=== PATIENT | male | born 1945 | race Caucasian/White ===

== ENCOUNTER 2016-12-01 18:51 | Inpatient (IN) | payer OTHER ==
[~2016-12-01] VITALS: Ht 180.3 cm; Wt 104.9 kg
[~2016-12-01 18:51] MED LIST: ASPI81TA28 PO; ATOR10TA88 PO; AZEL0.15; BENA20TA14 PO; FLUT0.0529 NAE; METO25TA56 PO; OMEP10CA2 PO; SYMIN160 INH; TRAM-10 PO; VRPSR240 PO
--- NOTE | 2016-12-01 19:03 | EMERGENCY ROOM VISIT NOTE ---
History Report prepared by Phuc: Abdulaziz Ag Under the Supervision of: Dr. Gabriel Yoo M.D. First contact with patient: 18:53 Chief Complaint: ABDOMINAL PAIN Stated Complaint: AB PAIN History of Present Illness The patient is a 71 year old male who presents to the Emergency Room with complaints of improving abdominal pain that started earlier today. The pain was initially excruciating and started suddenly, but is now rated 2/10 in severity. The pain radiates to the right groin area. The patient was also reportedly short of breath and diaphoretic, which are resolved. The patient denies chest pain at any point. Per EMS, his blood pressure dropped into the 90s systolically , which is unusual has a has a history of hypertension.The patient recently had pneumonia and was treated with antibiotics and steroids. His abdomen is also purple-appearing which is unusual. He had open AAA repair at [place] in 2002 and does not have a stent. He is also s/p CABG x 3. He initially denies a history of kidney stones but later stated that he has had them. Source of History: patient, EMS Onset: earlier today Position: abdomen Symptom Intensity: excruciating Timing: other (improving) Associated Symptoms: + SOB, + diaphoresis, No chest pain Review of Systems See HPI for pertinent positives & negatives. A total of 10 systems reviewed and were otherwise negative. Past Medical & Surgical Medical Problems: (1) Abdominal pain (2) NURIA (acute kidney injury) (3) Bronchitis (4) CAD (coronary artery disease) (5) Chest pain of uncertain etiology (6) COPD (chronic obstructive pulmonary disease) (7) Diverticulosis Colon (W/O Ment Of Hemorrhage) (8) Easy bruisability (9) Elevated troponin I level (10) GERD (gastroesophageal reflux disease) (11) Hypertension Nos (12) Hypothyroid (13) Obesity (14) Tobacco abuse Surgical Problems: (1) Hx of CABG (2) S/P AAA repair Family History No pertinent family history Social History Smoking Status: Current Every Day Smoker Drug Use: none Marital Status: Housing Status: lives with family Occupation Status: employed Current/Historical Medications Scheduled Aspirin (Aspirin Ec), 81 MG PO DAILY Atorvastatin (Atorvastatin Calcium), 10 MG PO DAILY Azelastine Hcl (Astelin Nasal Stephens), 2 SPRAYS MICHELLE DAILY Benazepril Hcl (Benazepril Hcl), 5 MG PO DAILY Diclofenac Sod (Diclofenac Sodium Dr), 75 MG PO BID Ergocalciferol (Vitamin D), 50,000 UNITS PO WK Fluticasone Furoate-Vilanterol (Breo Ellipta 200-25 Mcg/INH), 1 PUFF INH DAILY Levalbuterol (Levalbuterol HCl), 1 DOSE INH PRN UD Levothyroxine Sodium (Levothyroxine Sodium), 175 MCG PO DAILY Metoprolol Tartrate (Lopressor) (Lopressor), 25 MG PO BID Montelukast Sod (Montelukast Sodium), 10 MG PO DAILY Omeprazole (Prilosec), 10 MG PO DAILY Verapamil Hcl (Verapamil Hcl Er), 240 MG PO QPM Scheduled PRN Tramadol Hcl (Ultram), 50 MG PO BID PRN for Pain [Proair], 2 PUFF INH Q4 PRN for SOB/Wheezing Allergies Coded Allergies: Amoxicillin (Verified Adverse Reaction, Unknown, UPSET STOMACH, 09/03/15) Clavulanic Acid (Verified Adverse Reaction, Unknown, UPSET STOMACH, ) Physical Exam Vital Signs Date Time Temp Pulse Resp B/P Pulse Ox O2 Delivery O2 Flow Rate FiO2 12/01/16 21:21 84 13 95 12/01/16 21:16 87 15 95 12/01/16 21:11 86 16 95 12/01/16 21:06 86 14 97 12/01/16 21:01 87 22 152/84 96 12/01/16 20:56 86 17 95 12/01/16 20:51 87 13 97 12/01/16 20:46 83 27 96 12/01/16 20:41 86 11 96 12/01/16 20:36 88 17 95 12/01/16 20:31 89 13 126/75 95 12/01/16 20:29 90 12/01/16 20:24 88 16 142/82 96 Room Air 12/01/16 20:01 142/82 12/01/16 19:07 96 Room Air 12/01/16 18:59 36.4 90 22 137/87 96 Room Air Physical Exam GENERAL: Patient is ill appearing and in moderate distress. HEENT: No acute trauma, normocephalic atraumatic, mucous membranes moist, no nasal congestion, no scleral icterus. NECK: No stridor, no adenopathy, no meningismus, trachea is midline. LUNGS: Clear to auscultation and equal bilaterally. No wheeze, no rhonchi. Mildly dyspneic. HEART: Regular rate and rhythm. No murmurs, rubs, gallops appreciated. ABDOMEN: Soft, vaguely tender to palpation over the right lower quadrant, bowel sounds positive, no masses appreciated, no peritonitis. Mottled abdomen extending over the flanks. BACK: No midline tenderness, no CVA tenderness EXTREMITIES: Normal motion all extremities, no cyanosis, no edema. NEUROLOGIC: Alert and oriented but tired appearing, no acute motor or sensory deficits, no focal weakness, cranial nerves grossly intact. SKIN: No rash, no jaundice, no diaphoresis. RECTAL: Blood pouring out of the rectum. Medical Decision & Procedures ER Provider Diagnostic Interpretation: CT results as stated below per interpretation by me and the radiologist: CT CHEST COMBO ANGIOGRAPHY CLINICAL HISTORY: Shortness of breath. Chest pain. TECHNIQUE: Unenhanced and arterial phase imaging of the chest was performed. Injection of 116 cc Optiray 320 IV was uneventful. Sagittal and coronal reconstructions were reviewed as well as maximal intensity projections on an independent 3-D workstation. COMPARISON STUDY: Chest radiograph January 01, [address] November 29, 2012. FINDINGS: There is no evidence of thoracic aortic dissection. There is moderate atherosclerotic plaque of the thoracic aorta. The heart is mildly enlarged. There are median sternotomy wires and changes consistent with bypass grafting. There is mild cardiomegaly. No pericardial effusion or enlarged thoracic lymph nodes are present. There are no central pulmonary emboli. The remainder of the pulmonary arteries are suboptimally assessed on this exam. Groundglass and linear opacities favor atelectasis or scarring. There is no consolidation. There is no pneumothorax or pleural effusion. There are subacute to chronic right-sided rib fractures. The abdomen and pelvis will be reported separately. IMPRESSION: 1. No thoracic aortic dissection. 2. No acute intrathoracic findings. Electronically signed by: Anselmo Tripp M.D. 12/01/2016 8:13 PM Dictated Date/Time: 12/01/2016 8:[address] ANGIO ABD/PELVIS COMBO CT DOSE: 2300.43 mGy.cm CLINICAL HISTORY: Right flank pain. TECHNIQUE: Unenhanced and arterial phase imaging of the abdomen and pelvis was performed. Injection of 116 cc of Optiray 320 IV was uneventful. Sagittal and coronal reconstructions were viewed as well as maximal intensity projections on an independent 3-D workstation. COMPARISON STUDY: CT of the abdomen and pelvis May 02, 2014. FINDINGS: Arterial phase images of liver, spleen, adrenal glands and pancreas are normal. There is a horseshoe kidney. There are several subcentimeter renal lesions which are too small to characterize but likely reflect cysts. There is no evidence for a bowel obstruction. Note is made of mild wall thickening of the splenic flexure of the colon as well as the descending colon with mild pericolonic infiltration. There is sigmoid diverticulosis without evidence for acute diverticulitis. A right lower quadrant hernia is noted which contains bowel loops. There is no resultant bowel obstruction. There are findings suggestive of an open abdominal aortic aneurysm repair. The postoperative appearance of the aorta is unchanged and CT of May 02, 2014. 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 There is extensive atherosclerotic plaque of the aortoiliac system. 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 IMPRESSION: 1. Mild wall thickening of the splenic flexure of the colon and the descending colon with mild pericolonic infiltration. The findings represent a nonspecific colitis and this distribution raises the possibility of ischemic colitis. No free air, pneumatosis or portal venous gas. 2. Stable postoperative appearance of the abdominal aorta since prior CT. 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 No rupture. No abdominal aortic dissection. 3. 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 Electronically signed by: Anselmo Tripp M.D. 12/01/2016 8:23 PM Dictated Date/Time: 12/01/2016 8:14 PM Laboratory Results Test 12/01/16 19:05 12/01/16 20:49 Neutrophils % (Manual) 81.0 % Lymphocytes % (Manual) 10.0 % Monocytes % (Manual) 7.0 % Eosinophils % (Manual) 1.0 % Basophils % (Manual) 1.0 % (0-2) Neutrophils # (Manual) 18.47 K/uL (1.4-6.5) Total Absolute Neutrophils 18.47 K/uL (1.4-6.5) Lymphocytes # (Manual) 2.28 K/uL (1.2-3.4) Total Absolute Lymphocytes 2.28 K/uL (1.2-3.4) Monocytes # (Manual) 1.60 K/uL (0.11-0.59) Eosinophils # (Manual) 0.23 K/uL (0-0.5) Basophils # (Manual) 0.23 K/uL (0-0.2) Red Blood Cell Morphology Unremarkable Prothrombin Time 11.4 SECONDS (9.0-12.0) Prothromb Time International Ratio 1.1 (0.9-1.1) Activated Partial Thromboplast Time 26.4 SECONDS (21.0-31.0) Partial Thromboplastin Ratio 1.0 Procalcitonin < 0.05 ng/mL (0-0.5) Hepatitis C Antibody Screen NEG (NEG) Bedside Lactic Acid Venous 3.33 mmol/L (0.90-1.70) Laboratory results as reviewed by me. Medications Administered Medications (Trade) Dose Ordered Sig/Thu Route Start Time Stop Time Status Last Admin Dose Admin Sodium Chloride (Nss 500ml) 500 ml @ 999 mls/hr Q31M STAT IV 12/01/16 19:59 12/01/16 20:29 DC 12/01/16 20:09 999 MLS/HR Hydromorphone HCl 1 mg 1 mg NOW STAT IV 12/01/16 20:06 12/01/16 20:07 DC 12/01/16 20:13 1 MG Sodium Chloride (Nss 1000ml) 1,000 ml @ 999 mls/hr Q1H1M STAT IV 12/01/16 20:22 12/01/16 21:22 DC 12/01/16 20:22 999 MLS/HR Piperacillin Sod/ Tazobactam Sod (Zosyn Iv) 4.5 gm NOW STAT IV 12/01/16 20:35 12/01/16 20:36 DC 12/01/16 21:03 4.5 GM Hydromorphone HCl 1 mg 1 mg NOW STAT IV 12/01/16 20:38 12/01/16 20:39 DC 12/01/16 20:44 1 MG Sodium Chloride (Nss 1000ml) 1,000 ml @ 999 mls/hr Q1H1M STAT IV 12/01/16 21:07 12/01/16 22:07 DC 12/01/16 21:07 999 MLS/HR Hydromorphone HCl (Dilaudid Inj) 1 mg NOW STAT IV 12/01/16 21:38 12/01/16 21:39 DC 12/01/16 21:46 1 MG Hydromorphone HCl (Dilaudid Inj) 1 mg NOW STAT IV 12/01/16 21:41 12/01/16 21:42 DC 12/01/16 22:36 1 MG Lorazepam (Ativan Inj) 1 mg NOW STAT IV 12/01/16 21:45 12/01/16 21:46 DC 12/01/16 22:36 1 MG ECG Indication: abdominal pain Rate (beats per minute): 95 Findings: no acute ischemic change, no ectopy ED Course 1899: The patient was evaluated in room A12b. A complete history and physical exam was performed. 1949: The patient's family notes that he admitted to having rectal bleeding today. 1958: NSS 500 ml @ 999 mls/hr. 1999: The patient states that the rectal bleeding started today. He now has moderate RLQ pain at the site of a hernia. He notes that the hernia is usually much larger but is never painful. He also notes that he had pneumonia within the past two weeks for which he was on prednisone and antibiotics. 2006: Dilaudid 1 mg IV. 2009: Discussed the case Dr. Tripp, Radiologist. 2014: Discussed the case with Dr. Veliz, General Surgery. She will evaluate the patient in the ED. 2021: NSS 1000 ml @ 999 mls/hr. 2034: Zosyn 4.5 gm IV. 2035: Dilaudid cut the patient's pain in half. 2037: Dilaudid 1 mg IV. 2106: NSS 1000 ml @ 999 mls/hr. 2111: Dr. Veliz says the patient is not surgical and recommends a medical admit. 2114: Discussed the case with Dr. Galindo, [facility] Hospitalist. The patient will be evaluated. Medical Decision Differential: Renal Colic, Pyelonephritis, Hydronephrosis, Appendicitis, Diverticulitis, Retroperitoneal Bleed/Infection, Aortic Pathology, MSK, Neurologic Pathology, amongst other pathologies entertained. 71 yr old male with history of open AAA repair 2002, appendectomy 2012 (with right side hernia since), CABG 2014. Notes recent treatment for pneumonia with abx/steroids. Arrives via EMS with severe abdominal pain, initial hypotension and very ill appearing. He is with diffuse mottling abdomen and severely uncomfortable. RLQ TTP with hernia palpated though not consistent with incarcerated bowel. Given amount of pain he was having and mild hypotension sent emergently to CT for AAA rupture/dissection evaluation. Returned from CT with BP already improving. Labs revealing elevated WBC consistent with infection vs recent steroid use, but without clear knowledge of cause went ahead with blood cultures. Lactic Acid is elevated consistent with sepsis vs ischemia. Shortly after return from CT with large blood bowel movement. Rectal exam confirms bright red blood. Discussed with radiologist who notes no evidence dissection.rupture nor clear findings of fistula though does note patient with ischemic colitis appearance to CT. Furthermore no evidence incarcerated right lower hernia. Given all of this I had gen surg emergently evaluate patient and feeling is supportive care for now and monitor closely in ED. I have treated empirically with Zosyn for possible infectious ischemic colitis along with flagyl at request of CC medicine. Hospitalist and CC involved and evaluating patient. He received fluid resus with excellent improvement in his vitals and imrpvoement to coloration of abdomen. Furthermore required multiple rounds of narcotics. I re-evaluated patient and discussed with family on multiple occasions. Consults Time Called: 2004 Consulting Physician: Dr. Tripp, Radiologist. Returned Call: 2009 2009: Discussed the case Dr. Tripp, Radiologist. Additional Consults: Time Called: 1999 Consulted Physician: Dr. Veliz, General Surgery Returned Call: 2014 Additional Comments: 2014: Discussed the case with Dr. Veliz, General Surgery. She will see the patient in the ED. Impression Primary Impression: Ischemic colitis Additional Impressions: Lactic acidosis GI bleed Leukocytosis Critical Care I have personally spent greater than 45 minutes of critical care time in the direct management of this patient. This was a life/limb threatening event. This includes time spent evaluating patient, direct bedside care, chart review, placing orders, interpretation of diagnostic studies, discussion with consultants, patient, and family members, as well as other required patient management activities. This 45 minutes is in excess of all separately billable procedures. Scribe Attestation The scribe's documentation has been prepared under my direction and personally reviewed by me in its entirety. I confirm that the note above accurately reflects all work, treatment, procedures, and medical decision making performed by me. Departure Information Dispostion Being Evaluated By Hospitalist Referrals Juan Carr DO (PCP) Patient Instructions My [facility] Problem Qualifiers Additional Impressions: GI bleed GI bleed type/associated pathology: unspecified gastrointestinal hemorrhage type Qualified Codes: K92.2 - Gastrointestinal hemorrhage, unspecified Leukocytosis Leukocytosis type: unspecified Qualified Codes: D72.829 - Elevated white blood cell count, unspecified
[2016-12-01] MEDS ORDERED: OPTIRAY 320 IV PRN (19:15)
[2016-12-01 19:22] LABS: HEMATOCRIT 50.2 % (42-52); MEAN CORPUSCULAR HEMOGLOBIN 34.3 pg (25-34); MEAN CORPUSCULAR HGB CONC 34.7 g/dl (32-36); PLATELET COUNT 200 K/uL (130-400); RED BLOOD COUNT 5.07 M/uL (4.7-6.1)
[2016-12-01] MEDS ORDERED: ASTN NAE (19:30)
[2016-12-01] MEDS ORDERED: ULT/50 PO (19:30)
[2016-12-01] MEDS ORDERED: VLT/75 PO (19:30)
[2016-12-01] MEDS ORDERED: XPNINS125 INH (19:30)
[2016-12-01] MEDS ORDERED: VERA240C2 PO (19:30)
[2016-12-01] MEDS ORDERED: BENA5TAB5 PO (19:30)
[2016-12-01] MEDS ORDERED: PROAIR INH (19:30)
[2016-12-01] MEDS ORDERED: FLUT1INH7 INH (19:30)
[2016-12-01] MEDS ORDERED: LPT10 PO (19:30)
[2016-12-01 19:32] LABS: INR 1.1 (0.9-1.1); PROTHROMBIN TIME (PATIENT) 11.4 SECONDS (9.0-12.0)
[2016-12-01 19:40] LABS: BUN/CREATININE RATIO 18.5 (10-20); CALCIUM 9.4 mg/dl (8.5-10.1); CREATININE 1.5 mg/dl (0.60-1.40); MAGNESIUM 2.7 mg/dl (1.8-2.4); POTASSIUM 3.9 mmol/L (3.5-5.1)
[2016-12-01] MEDS ORDERED: SODIUM CHLORIDE 0.9% 500ML 500 ML IV STA (19:59)
[2016-12-01] MEDS ORDERED: HYDROmorphone INJ 1 MG/ML SYR IV STA ×4 (20:06→21:41)
[2016-12-01] MEDS ORDERED: VTMD PO (20:08)
[2016-12-01 20:09] LABS: BASO ABS # 0.23 K/uL (0-0.2); COMPLETE YES; LYMPH ABS # 2.28 K/uL (1.2-3.4)
--- NOTE | 2016-12-01 20:15 | DIAGNOSTIC IMAGING REPORT ---
CT CHEST COMBO ANGIOGRAPHY CLINICAL HISTORY: Shortness of breath. Chest pain. TECHNIQUE: Unenhanced and arterial phase imaging of the chest was performed. Injection of 116 cc Optiray 320 IV was uneventful. Sagittal and coronal reconstructions were reviewed as well as maximal intensity projections on an independent 3-D workstation. COMPARISON STUDY: Chest radiograph January 01, [address] November 29, 2012. FINDINGS: There is no evidence of thoracic aortic dissection. There is moderate atherosclerotic plaque of the thoracic aorta. The heart is mildly enlarged. There are median sternotomy wires and changes consistent with bypass grafting. There is mild cardiomegaly. No pericardial effusion or enlarged thoracic lymph nodes are present. There are no central pulmonary emboli. The remainder of the pulmonary arteries are suboptimally assessed on this exam. Groundglass and linear opacities favor atelectasis or scarring. There is no consolidation. There is no pneumothorax or pleural effusion. There are subacute to chronic right-sided rib fractures. The abdomen and pelvis will be reported separately. IMPRESSION: 1. No thoracic aortic dissection. 2. No acute intrathoracic findings. Electronically signed by: Anselmo Tripp M.D. 12/01/2016 8:13 PM Dictated Date/Time: 12/01/2016 8:07 PM
[2016-12-01] MEDS ORDERED: SODIUM CHLORIDE 0.9% 1000ML 1,000 ML IV STA ×2 (20:22→21:07)
--- NOTE | 2016-12-01 20:24 | DIAGNOSTIC IMAGING REPORT ---
CT ANGIO ABD/PELVIS COMBO CT DOSE: 2300.43 mGy.cm CLINICAL HISTORY: Right flank pain. TECHNIQUE: Unenhanced and arterial phase imaging of the abdomen and pelvis was performed. Injection of 116 cc of Optiray 320 IV was uneventful. Sagittal and coronal reconstructions were viewed as well as maximal intensity projections on an independent 3-D workstation. COMPARISON STUDY: CT of the abdomen and pelvis May 02, 2014. FINDINGS: Arterial phase images of liver, spleen, adrenal glands and pancreas are normal. There is a horseshoe kidney. There are several subcentimeter renal lesions which are too small to characterize but likely reflect cysts. There is no evidence for a bowel obstruction. Note is made of mild wall thickening of the splenic flexure of the colon as well as the descending colon with mild pericolonic infiltration. There is sigmoid diverticulosis without evidence for acute diverticulitis. A right lower quadrant hernia is noted which contains bowel loops. There is no resultant bowel obstruction. There are findings suggestive of an open abdominal aortic aneurysm repair. The postoperative appearance of the aorta is unchanged and CT of May 02, 2014. 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 There is extensive atherosclerotic plaque of the aortoiliac system. 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 IMPRESSION: 1. Mild wall thickening of the splenic flexure of the colon and the descending colon with mild pericolonic infiltration. The findings represent a nonspecific colitis and this distribution raises the possibility of ischemic colitis. No free air, pneumatosis or portal venous gas. 2. Stable postoperative appearance of the abdominal aorta since prior CT. 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 No rupture. No abdominal aortic dissection. 3. 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 Electronically signed by: Anselmo Tripp M.D. 12/01/2016 8:23 PM Dictated Date/Time: 12/01/2016 8:14 PM
[2016-12-01] MEDS ORDERED: PIPERACILLIN/TAZOBACTAM 4.5 GM/100ML D5W IV STA (20:35)
--- NOTE | 2016-12-01 21:26 | Pre-Operative Consultation ---
History General Date of Service: Dec 01, 2016. Stated Complaint: abdominal pain and rectal bleeding HPI HPI: The patient is a 71 year old male being seen at the request of Dr. Yoo for abdominal pain. 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 Has undergone a open appendectomy in [address] Hodgson followed by a laparoscopic ventral hernia repair. In 2014, went on to have a CABG at [facility]. Around 4:30 this afternoon, he developed sharp pain in the RLQ, very intense, no radiation. Went home and tried to have a bowel movement. [place] diaphoretic, weak, dizzy. Called ems and found to have low BP in the 90s which improved with IV fluid. He is unaware he has a hernia in the RLQ but does not increasing bulging in that area. No nausea or vomiting. Had two episodes of bloody stools more recently. No fevers/ chills. Has received dilaudid and pain level is now 4/10. CT scan done and shows suggestion of ischemic colitis of splenic flexure as well as RLQ hernia containing bowel but no obstruction noted. He recently finished a course of antibiotics and steroids for pneumonia. Historian: patient Problem List Medical Problems: (1) Non-ST elevated myocardial infarction Status: Acute (2) Precordial chest pain Status: Acute Medical & Surgical History Past Medical History: Past Medical & Surgical Medical Problems: (1) Bronchitis (2) Chest pain of uncertain etiology (3) Diverticulosis Colon (W/O Ment Of Hemorrhage) (4) Easy bruisability (5) Elevated troponin I level (6) Hypertension Nos Surgical Problems: (1) Hx of CABG (2) S/P AAA repair 3) open appendectomy 4) lap ventral hernia repair with mesh Past Medical History: kidney stones, other Past Surgical History: AAA repair, appendectomy, cardiac catheterization, coronary bypass surgery, hernia repair Social History Hx Tobacco Use In Past Year?: Yes (TWO CIGARS/DAY) Smoking Status: Current Every Day Smoker Drug Use: none Marital status: Occupation status: employed Immunizations Have You Had Influenza Vaccine: Yes Date Of Influenza Vaccine: Jun 19, 2012 Have You Had Tetanus Vaccine: Yes History of Pneumococcal: Yes Date of Pneumococcal Vaccine: Mar 19, 2008 History Hepatitis B Vaccine: Yes Date Of Hepatitis Immunization: Nov 30, 1967 Allergies Allergies: Coded Allergies: Amoxicillin (Verified Adverse Reaction, Unknown, UPSET STOMACH, 09/03/15) Clavulanic Acid (Verified Adverse Reaction, Unknown, UPSET STOMACH, ) Medications Current Inpatient Medications Current Inpatient Medications Medications (Trade) Dose Ordered Sig/Thu Route Start Time Stop Time Status Last Admin Dose Admin Ioversol 125 ml 125 ml UD PRN IV 12/01/16 19:15 12/05/16 19:14 Sodium Chloride 1,000 ml @ 999 mls/hr Q1H1M STAT IV 12/01/16 20:22 12/01/16 21:22 12/01/16 20:22 999 MLS/HR Sodium Chloride (Nss 1000ml) 1,000 ml @ 999 mls/hr Q1H1M STAT IV 12/01/16 21:07 12/01/16 22:07 12/01/16 21:07 999 MLS/HR Physical Exam Physical Exam General Appearance: + WD/WN, No distress Ears, Nose, Throat: + normal ENT inspection Neck: No abnormal inspection, No tracheal deviation Respiratory: No accessory muscle use, No chest tenderness, No decreased breath sounds, No respiratory distress Cardiovascular: No JVD, No abnormal rhythm, No edema, No tachycardia Abdomen: + hernia (RLQ at site of open appendectomy, not tense, reducible, moderate size), + tenderness (mild in RLQ over hernia site), No abnormal bowel sounds, No distension, No guarding, No rebound Extremities: No edema Neurologic/Psychiatric: 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, No decreased LOC, No motor deficit/weakness Skin Characteristics: No abnormal color, No cyanosis Diagnostics Labs Labs Results Past 24 Hours Test 12/01/16 19:05 12/01/16 20:49 Range/Units White Blood Count 22.80 4.8-10.8 K/uL Red Blood Count 5.07 4.7-6.1 M/uL Hemoglobin 17.4 14.0-18.0 g/dL Hematocrit 50.2 42-52 % Mean Corpuscular Volume 99.0 80-100 fL Mean Corpuscular Hemoglobin 34.3 25-34 pg Mean Corpuscular Hemoglobin Concent 34.7 32-36 g/dl Platelet Count 200 130-400 K/uL Mean Platelet Volume 11.0 7.4-10.4 fL RDW Standard Deviation 49.5 36.4-46.3 fL RDW Coefficient of Variation 13.9 11.5-14.5 % Neutrophils % (Manual) 81.0 % Lymphocytes % (Manual) 10.0 % Monocytes % (Manual) 7.0 % Eosinophils % (Manual) 1.0 % Basophils % (Manual) 1.0 0-2 % Neutrophils # (Manual) 18.47 1.4-6.5 K/uL Total Absolute Neutrophils 18.47 1.4-6.5 K/uL Lymphocytes # (Manual) 2.28 1.2-3.4 K/uL Total Absolute Lymphocytes 2.28 1.2-3.4 K/uL Monocytes # (Manual) 1.60 0.11-0.59 K/uL Eosinophils # (Manual) 0.23 0-0.5 K/uL Basophils # (Manual) 0.23 0-0.2 K/uL Red Blood Cell Morphology Unremarkable Prothrombin Time 11.4 9.0-12.0 SECONDS Prothromb Time International Ratio 1.1 0.9-1.1 Activated Partial Thromboplast Time 26.4 21.0-31.0 SECONDS Partial Thromboplastin Ratio 1.0 Sodium Level 142 136-145 mmol/L Potassium Level 3.9 3.5-5.1 mmol/L Chloride Level 108 98-107 mmol/L Carbon Dioxide Level 25 21-32 mmol/L Anion Gap 9.0 3-11 mmol/L Blood Urea Nitrogen 28 7-18 mg/dl Creatinine 1.50 0.60-1.40 mg/dl Est Creatinine Clear Calc Drug Dose 58.1 ml/min Estimated GFR () 54.3 Estimated GFR (Non- 46.8 BUN/Creatinine Ratio 18.5 10-20 Random Glucose 136 70-99 mg/dl Calcium Level 9.4 8.5-10.1 mg/dl Magnesium Level 2.7 1.8-2.4 mg/dl Troponin I 0.076 0-0.045 ng/ml Bedside Lactic Acid Venous 3.33 0.90-1.70 mmol/L Microbiology Results 12/01/16 Blood Culture, Received Pending 12/01/16 Blood Culture, Received Pending Lab Interpretation Lab Interpretation: labs were reviewed Diagnostic Radiology Diagnostic Radiology CT scan reviewed: FINDINGS: Arterial phase images of liver, spleen, adrenal glands and pancreas are normal. There is a horseshoe kidney. There are several subcentimeter renal lesions which are too small to characterize but likely reflect cysts. There is no evidence for a bowel obstruction. Note is made of mild wall thickening of the splenic flexure of the colon as well as the descending colon with mild pericolonic infiltration. There is sigmoid diverticulosis without evidence for acute diverticulitis. A right lower quadrant hernia is noted which contains bowel loops. There is no resultant bowel obstruction. There are findings suggestive of an open abdominal aortic aneurysm repair. The postoperative appearance of the aorta is unchanged and CT of May 02, 2014. 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 There is extensive atherosclerotic plaque of the aortoiliac system. 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 IMPRESSION: 1. Mild wall thickening of the splenic flexure of the colon and the descending colon with mild pericolonic infiltration. The findings represent a nonspecific colitis and this distribution raises the possibility of ischemic colitis. No free air, pneumatosis or portal venous gas. 2. Stable postoperative appearance of the abdominal aorta since prior CT. 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 No rupture. No abdominal aortic dissection. 3. 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 Impression Assessment and Plan Assessment and Plan 71 yr old man with prior AAA repair, CABG and 1) reducible incisional hernia RLQ at the site of his pain/ tenderness. Discussed that I would recommend elective surgical intervention for this - given no evidence of obstruction or incarceration, there is no need to fix urgently and 2) likely ischemic colitis of splenic flexure and desc colon. Explained etiology of low flow state. No need for urgent surgical intervention given lack of pneumatosis, portal venous gas and relatively benign exam. Would treat with resuscitation of IVF, bowel rest, consider antibiotics. If no improvement, explained the potential for surgery. 3) rectal bleeding which may be secondary to ischemic colitis. Consider GI consult. His last cscope was a year ago.
[2016-12-01] MEDS ORDERED: LORAZEPAM 2 MG/ML 1 ML VIAL IV STA (21:45)
[2016-12-01] MEDS ORDERED: HYDROmorphone INJ 2 MG/ML SYR/VIAL IV PRN (22:00)
[2016-12-01] MEDS ORDERED: LORAZEPAM 2 MG/ML 1 ML VIAL IV PRN (22:00)
[2016-12-01] MEDS ORDERED: METRONIDAZOLE 500MG / 100ML NSS IV STA (22:01)
[2016-12-01] MEDS ORDERED: SODIUM CHLORIDE 0.9% 1000ML 1,000 ML IV SCH (22:15)
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
[2016-12-01 22:58] LABS: ARTERIAL BLD GAS O2 SATURATION 91.9 % (90-95); ARTERIAL BLOOD GAS BASE EXCESS -3.8 mEq/L (-9-1.8); ARTERIAL BLOOD GAS HCO3 21 mmol/L (19-24); ARTERIAL BLOOD GAS PO2 67 mm/Hg (80-95); ARTERIAL BLOOD GAS pH 7.38 (7.35-7.45)
[2016-12-01 23:01] LABS: ALLEN TEST POS (POS); O2 ADMINISTRATION ROOM AIR
[2016-12-01 23:12] VITALS: BP 110/67; PULSE 93; TEMP 36.8; O2SAT 96; Ht 180.3 cm; Wt 104.9 kg
[2016-12-01] MEDS ORDERED: SNG10 PO (23:30)
[2016-12-01] MEDS ORDERED: LEVO175T3 PO (23:32)
[2016-12-02] VITALS (18 sets, daily range): BP systolic 109–161; BP diastolic 59–79; PULSE 70–116; TEMP 36.8–37.4; O2SAT 74–100
[2016-12-02] MEDS: LACTATED RINGER'S 1000ML 1,000 ML IV SCH ×3 (00:19→16:54)
[2016-12-02] MEDS ORDERED: HydrALAZINE HCL 20 MG/ML VIAL IV. PRN (02:15)
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
[2016-12-02] MEDS ORDERED: PIPERACILL/TAZOBAC CONSULT ACTIVE PRN (02:45)
[2016-12-02] MEDS ORDERED: LEVALBUTEROL/IPRATROPIUM NEB INH SCH (03:00)
[2016-12-02] MEDS: PIPERACILL/TAZOBAC IV 4.5 GM in DEXTROSE 5% 100ML 100 ML IV SCH ×3 (03:15→19:35)
[2016-12-02] MEDS: LEVALBUTEROL 1.25MG/0.5ML NEB INH SCH ×4 (03:16→19:30)
[2016-12-02] MEDS: IPRATROPIUM BROMIDE NEB SOLN 0.02% 2.5 ML VIAL INH SCH ×4 (03:16→19:30)
[2016-12-02] MEDS ORDERED: METOPROLOL TARTRATE 1 MG/ML VIAL IV. ONE (03:30)
[2016-12-02 05:55] LABS: BASO % 0.1 %; BASO ABS # 0.02 K/uL (0-0.2); COMPLETE YES; HEMATOCRIT 44.1 % (42-52); IG% 0.5 %; LYMPH % 9.2 %; LYMPH ABS # 1.85 K/uL (1.2-3.4); MEAN CELL VOLUME 98.2 fL (80-100); MEAN CORPUSCULAR HEMOGLOBIN 33.6 pg (25-34); MEAN CORPUSCULAR HGB CONC 34.2 g/dl (32-36); MONO % 12.7 %; NEUT % 77.5 %; PLATELET COUNT 174 K/uL (130-400); RED BLOOD COUNT 4.49 M/uL (4.7-6.1); WHITE BLOOD COUNT 20.07 K/uL (4.8-10.8)
[2016-12-02] MEDS ORDERED: METOPROLOL TARTRATE 1 MG/ML VIAL IV. SCH (06:00)
[2016-12-02] MEDS ORDERED: METRONIDAZOLE / NSS 500 MG in PREMIXED NSS 100 ML IV SCH (06:00)
[2016-12-02 06:27] LABS: BUN/CREATININE RATIO 16.5 (10-20); CALCIUM 8.2 mg/dl (8.5-10.1); CREATININE 1.2 mg/dl (0.60-1.40); MAGNESIUM 1.9 mg/dl (1.8-2.4); POTASSIUM 4.1 mmol/L (3.5-5.1)
[2016-12-02 06:32] LABS: PHOSPHORUS 2.1 mg/dl (2.5-4.9)
[2016-12-02 06:56] LABS: THYROID STIMULATING HORMONE 1.99 uIu/ml (0.300-4.500)
[2016-12-02] MEDS ORDERED: PERFLUTREN LIPID MICROSPHERE (DEFINITY) IV ONE (07:30)
[2016-12-02] MEDS ORDERED: LEVOTHYROXINE SODIUM IV SCH (09:00)
--- NOTE | 2016-12-02 10:12 | Critical Care Progress Note ---
Critical Care Progress Note Date of Service Dec 02, 2016. ICU Day ICU Day Number: [address] Hutchins Subjective Abdominal pain is under better control today one episode of bloody stool this am no events overnight Objective General: ambulatory, not in acute distress Skin: no rashes noted, no suspicious lesions, no areas of inflammations/ lacerations/ erythema noted CVS: S1/ S2 noted, RRR, no rubs/ murmurs noted, no cyanosis RVS: Clear throughout bilaterally, not in acute respiratory distress, no wheezing/ rales/ crackles noted ENT: TM bilat clear, no erythema/ injection/ ulcerations noted in the pharynx, no lymphadenopathy Neck: Thyroid is not palpable, inspection WNL, full ROM of neck, no bruits noted ABD: BSx4, no pain/ tenderness on palpation, no organomegaly, negative murphys, psoas, Rovsing, CVA tenderness MSK: inspection of all limbs WNL, motor and sensation intact in all limbs, no swelling/ pain on palpation of joints NVS: CN ii-xii WNL, PERRL, EOMI, sensation intact in all extremities, DTR +2 Lymph: No lymphadenopathy palpable Assessment & Plan (1) Ischemic colitis (2) Leukocytosis - improving (3) GI bleed, Lower (4) Elevated troponin- most likely supply and demand (5) Obesity (6) Tobacco abuse (7) Hypothyroid (8) COPD (chronic obstructive pulmonary disease) (9) CAD (coronary artery disease) (10) GERD (gastroesophageal reflux disease) (11) NURIA (acute kidney injury)- resolved NVS - Alert and oriented - pain control with dilaudid - monitor for signs of delirium CVS - continue to trend troponin to peak - PO Metoprolol continue - hydralazine for bp sys > 180 RVS O2 sat goal is 88-92 - Xopenex q6h GI - Consult Gi - CT - revealed possible ischemic colitis without signs of bowel - gen surg consult- no plan for OR currently - NPO except medications - C Diff negative - Shiga and stool culture pending - protonix 40 daily IV RENAL - LR @ 125cc/h - received 3.5 L in the ED - monitor I&O - improved Cr- follow PRP FEN - phosphorous slightly decreased, replete appropriately - follow PRP ENDO - continue levothyroxine - accuchecks per protocol - HBA1C HEME - Type and screen, no units held at this time - monitor CBC - q 6 HH - small drop in HGB however received > 3L of fluid most likely dilutional - DVT- SCD ID - Zosyn cont Flagyl d/c cdiff neg - blood culture pending Resident Physician Supervision Note: Dr. Roche was resident physician during care of patient. I separately evaluated patient and did history and exam. I discussed the case with the resident and generally agree with the findings and plan. Patient significantly improved since overnight, has cleared lactic acid, continued to put out bloody stools, however H&H stable. Patient's abdomen soft not a surgical abdomen at this time. We will consult gastroenterology and the patient is stable for downgraded to telemetry status. Checking third troponin is patient is still mildly increasing. I anticipate the etiology is underlying dehydration which led to sluggish flow and developed into mesenteric ischemia. At this point I continued the patient's aspirin and Plavix as he has a significant vasculopath, and the patient's platelets are still under the influence of the pre-existing aspirin and Plavix therapy which she has been taking. He is not having significant blood loss requiring blood transfusion at this point. Documented By: Juan Hutchins DO Data Medications: Current Inpatient Medications Medications (Trade) Dose Ordered Sig/Thu Route Start Time Stop Time Status Last Admin Dose Admin Ioversol (Optiray 320) 125 ml UD PRN IV 12/01/16 19:15 12/05/16 19:14 Lorazepam (Ativan Inj) 1 mg Q4H PRN IV 12/01/16 22:00 12/31/16 21:59 Hydromorphone HCl 1 mg 1 mg Q2H PRN IV 12/01/16 22:00 12/15/16 21:59 12/02/16 05:16 1 MG Lactated Ringer's 1,000 ml @ 125 mls/hr Q8H IV 12/01/16 23:45 12/31/16 23:44 12/02/16 07:41 125 MLS/HR Piperacillin Sod/ Tazobactam Sod 4.5 gm/Dextrose 120 ml @ 30 mls/hr Q8H IV 12/02/16 03:00 12/12/16 02:59 12/02/16 03:15 30 MLS/HR Metronidazole/Prmx (Flagyl / Nss/ Premixed Nss) 100 ml @ 100 mls/hr Q8H IV 12/02/16 06:00 12/16/16 02:14 12/02/16 07:36 100 MLS/HR Piperacillin Sod/ Tazobactam Sod 1 ea 1 ea UD PRN N/A 12/02/16 02:45 01/01/17 02:44 Pantoprazole Sodium 40 mg/ Syringe 10 ml @ 5 mls/min DAILY@11 IV 12/02/16 11:00 01/01/17 10:59 Levothyroxine Sodium/Syringe (Synthroid Inj/ Syringe) 4.5 ml @ 2.25 mls/ min DAILY@09 IV 12/02/16 09:00 01/01/17 08:59 Metoprolol Tartrate (Lopressor Iv) 2.5 mg Q6 IV. 12/02/16 06:00 01/01/17 05:59 12/02/16 06:11 2.5 MG Hydralazine HCl (HydrALAZINE INJ) 10 mg Q8 PRN IV. 12/02/16 02:15 01/01/17 02:14 Ipratropium [place] (Atrovent 0.02% 0.5MG/2.5ML Neb) 0.5 mg Q6R INH 12/02/16 03:00 01/01/17 02:59 12/02/16 07:32 0.5 MG Levalbuterol (Xopenex 1.25MG/ 0.5ML Neb) 1.25 mg Q6R INH 12/02/16 03:00 01/01/17 02:59 12/02/16 07:32 1.25 MG I & O: 24-Hour Column 12/02/16 07:59 Intake Total 5094 ml Output Total 1100 ml Balance 3994 ml Vital Signs: Date Time Temp Pulse Resp B/P Pulse Ox O2 Delivery O2 Flow Rate FiO2 12/02/16 08:00 94 Room Air 12/02/16 08:00 37.4 93 22 135/76 94 Room Air 12/02/16 07:32 95 26 93 Room Air 12/02/16 06:11 104 112/79 12/02/16 06:10 106 22 112/79 93 Room Air 12/02/16 06:01 108 16 109/72 95 Room Air 12/02/16 05:01 116 27 131/78 96 Room Air 12/02/16 04:01 37.1 108 24 139/72 93 Room Air 12/02/16 04:00 Room Air 12/02/16 03:26 121 161/73 12/02/16 03:16 115 26 96 Room Air 12/02/16 03:02 111 23 161/73 74 Room Air 12/02/16 02:01 95 24 148/78 94 Room Air 12/02/16 01:01 97 22 119/77 91 Room Air 12/02/16 00:01 97 21 139/76 91 Room Air 12/01/16 23:12 36.8 93 19 110/67 96 Room Air 12/01/16 22:50 36.4 84 13 152/84 95 12/01/16 21:21 84 13 95 12/01/16 21:16 87 15 95 12/01/16 21:11 86 16 95 12/01/16 21:06 86 14 97 12/01/16 21:01 87 22 152/84 96 12/01/16 20:56 86 17 95 12/01/16 20:51 87 13 97 12/01/16 20:46 83 27 96 12/01/16 20:41 86 11 96 12/01/16 20:36 88 17 95 12/01/16 20:31 89 13 126/75 95 12/01/16 20:29 90 12/01/16 20:24 88 16 142/82 96 Room Air 12/01/16 20:01 142/82 12/01/16 19:07 96 Room Air 12/01/16 18:59 36.4 90 22 137/87 96 Room Air Laboratory Results: Last 24 Hours Test 12/01/16 19:05 12/01/16 20:49 12/01/16 22:45 12/02/16 05:47 White Blood Count 22.80 K/uL 20.07 K/uL Red Blood Count 5.07 M/uL 4.49 M/uL Hemoglobin 17.4 g/dL 15.4 g/dL 15.1 g/dL Hematocrit 50.2 % 45.0 % 44.1 % Mean Corpuscular Volume 99.0 fL 98.2 fL Mean Corpuscular Hemoglobin 34.3 pg 33.6 pg Mean Corpuscular Hemoglobin Concent 34.7 g/dl 34.2 g/dl Platelet Count 200 K/uL 174 K/uL Mean Platelet Volume 11.0 fL 11.0 fL RDW Standard Deviation 49.5 fL 50.5 fL RDW Coefficient of Variation 13.9 % 14.1 % Neutrophils % (Manual) 81.0 % Lymphocytes % (Manual) 10.0 % Monocytes % (Manual) 7.0 % Eosinophils % (Manual) 1.0 % Basophils % (Manual) 1.0 % Neutrophils # (Manual) 18.47 K/uL Total Absolute Neutrophils 18.47 K/uL Lymphocytes # (Manual) 2.28 K/uL Total Absolute Lymphocytes 2.28 K/uL Monocytes # (Manual) 1.60 K/uL Eosinophils # (Manual) 0.23 K/uL Basophils # (Manual) 0.23 K/uL Red Blood Cell Morphology Unremarkable Prothrombin Time 11.4 SECONDS Prothromb Time International Ratio 1.1 Activated Partial Thromboplast Time 26.4 SECONDS Partial Thromboplastin Ratio 1.0 Sodium Level 142 mmol/L 142 mmol/L Potassium Level 3.9 mmol/L 4.1 mmol/L Chloride Level 108 mmol/L 109 mmol/L Carbon Dioxide Level 25 mmol/L 23 mmol/L Anion Gap 9.0 mmol/L 10.0 mmol/L Blood Urea Nitrogen 28 mg/dl 20 mg/dl Creatinine 1.50 mg/dl 1.20 mg/dl Est Creatinine Clear Calc Drug Dose 58.1 ml/min 71.6 ml/min Estimated GFR () 54.3 71.1 Estimated GFR (Non- 46.8 61.3 BUN/Creatinine Ratio 18.5 16.5 Random Glucose 136 mg/dl 148 mg/dl Calcium Level 9.4 mg/dl 8.2 mg/dl Magnesium Level 2.7 mg/dl 1.9 mg/dl Troponin I 0.076 ng/ml 0.086 ng/ml Procalcitonin < 0.05 ng/mL Hepatitis C Antibody Screen NEG Bedside Lactic Acid Venous 3.33 mmol/L Arterial Blood pH 7.38 Arterial Blood Partial Pressure CO2 36 mmHg Arterial Blood Partial Pressure O2 67 mm/Hg Arterial Blood HCO3 21 mmol/L Arterial Blood Oxygen Saturation 91.9 % Arterial Blood Base Excess -3.8 mEq/L Arterial Blood Gas Delivery ROOM AIR Eren Test POS Neutrophils (%) (Auto) 77.5 % Lymphocytes (%) (Auto) 9.2 % Monocytes (%) (Auto) 12.7 % Eosinophils (%) (Auto) 0.0 % Basophils (%) (Auto) 0.1 % Neutrophils # (Auto) 15.54 K/uL Lymphocytes # (Auto) 1.85 K/uL Monocytes # (Auto) 2.55 K/uL Eosinophils # (Auto) 0.01 K/uL Basophils # (Auto) 0.02 K/uL Immature Granulocyte % (Auto) 0.5 % Immature Granulocyte # (Auto) 0.10 K/uL Lactic Acid Level 2.2 mmol/L Phosphorus Level 2.1 mg/dl Total Bilirubin 0.8 mg/dl Direct Bilirubin 0.2 mg/dl Aspartate Amino Transf (AST/SGOT) 17 U/L Alanine Aminotransferase (ALT/SGPT) 28 U/L Alkaline Phosphatase 59 U/L Total Protein 6.2 gm/dl Albumin 3.3 gm/dl Thyroid Stimulating Hormone (TSH) 1.990 uIu/ml Test 12/02/16 05:55 Stool Occult Blood POSITIVE
[2016-12-02 10:18] LABS: ESTIMATED AVERAGE GLUCOSE 148 mg/dl; HA1C FLAG Normal (Normal)
[2016-12-02] MEDS: ASPIRIN 81 MG ECTAB PO SCH (10:27)
[2016-12-02] MEDS: PANTOprazole SOD 40 MG TAB PO SCH (10:28)
[2016-12-02] MEDS: METOPROLOL TARTRATE 25 MG TAB PO SCH ×2 (10:28→21:26)
--- NOTE | 2016-12-02 10:49 | Surgery Progress Note ---
Surgery Progress Note Date of Service Dec 02, 2016. Subjective Post OP Day: HD # 1 + flatus, No SOB, No bowel movement, No chest pain, No nausea, No vomiting abdominal pain better than yesterday, pain more so in RLQ but generalized Objective Vital Signs: Date Time Temp Pulse Resp B/P Pulse Ox O2 Delivery O2 Flow Rate FiO2 12/02/16 10:00 92 26 136/59 96 Nasal Cannula 2.0 12/02/16 08:00 94 Room Air 12/02/16 08:00 37.4 93 22 135/76 94 Room Air 12/02/16 07:32 95 26 93 Room Air 12/02/16 06:11 104 112/79 12/02/16 06:10 106 22 112/79 93 Room Air 12/02/16 06:01 108 16 109/72 95 Room Air 12/02/16 05:01 116 27 131/78 96 Room Air 12/02/16 04:01 37.1 108 24 139/72 93 Room Air 12/02/16 04:00 Room Air 12/02/16 03:26 121 161/73 12/02/16 03:16 115 26 96 Room Air 12/02/16 03:02 111 23 161/73 74 Room Air 12/02/16 02:01 95 24 148/78 94 Room Air 12/02/16 01:01 97 22 119/77 91 Room Air 12/02/16 00:01 97 21 139/76 91 Room Air 12/01/16 23:12 36.8 93 19 110/67 96 Room Air 12/01/16 22:50 36.4 84 13 152/84 95 12/01/16 21:21 84 13 95 12/01/16 21:16 87 15 95 12/01/16 21:11 86 16 95 12/01/16 21:06 86 14 97 12/01/16 21:01 87 22 152/84 96 12/01/16 20:56 86 17 95 12/01/16 20:51 87 13 97 12/01/16 20:46 83 27 96 12/01/16 20:41 86 11 96 12/01/16 20:36 88 17 95 12/01/16 20:31 89 13 126/75 95 12/01/16 20:29 90 12/01/16 20:24 88 16 142/82 96 Room Air 12/01/16 20:01 142/82 12/01/16 19:07 96 Room Air 12/01/16 18:59 36.4 90 22 137/87 96 Room Air General Appearance: + mild distress, + obese Head: normocephalic, atraumatic Neck: trachea midline Respiratory/Chest: no respiratory distress, no accessory muscle use, + wheezing Cardiovascular: regular rate, rhythm Abdomen: non distended, soft, no organomegaly, no pulsatile mass, + tenderness (RLQ, no guarding, rigidity or peritonitis) Laboratory Results: Results Past 24 Hours Test 12/01/16 19:05 12/01/16 20:49 12/01/16 22:45 12/02/16 05:47 Range/Units White Blood Count 22.80 20.07 4.8-10.8 K/uL Red Blood Count 5.07 4.49 4.7-6.1 M/uL Hemoglobin 17.4 15.4 15.1 14.0-18.0 g/dL Hematocrit 50.2 45.0 44.1 42-52 % Mean Corpuscular Volume 99.0 98.2 80-100 fL Mean Corpuscular Hemoglobin 34.3 33.6 25-34 pg Mean Corpuscular Hemoglobin Concent 34.7 34.2 32-36 g/dl Platelet Count 200 174 130-400 K/uL Mean Platelet Volume 11.0 11.0 7.4-10.4 fL RDW Standard Deviation 49.5 50.5 36.4-46.3 fL RDW Coefficient of Variation 13.9 14.1 11.5-14.5 % Neutrophils % (Manual) 81.0 % Lymphocytes % (Manual) 10.0 % Monocytes % (Manual) 7.0 % Eosinophils % (Manual) 1.0 % Basophils % (Manual) 1.0 0-2 % Neutrophils # (Manual) 18.47 1.4-6.5 K/uL Total Absolute Neutrophils 18.47 1.4-6.5 K/uL Lymphocytes # (Manual) 2.28 1.2-3.4 K/uL Total Absolute Lymphocytes 2.28 1.2-3.4 K/uL Monocytes # (Manual) 1.60 0.11-0.59 K/uL Eosinophils # (Manual) 0.23 0-0.5 K/uL Basophils # (Manual) 0.23 0-0.2 K/uL Red Blood Cell Morphology Unremarkable Prothrombin Time 11.4 9.0-12.0 SECONDS Prothromb Time International Ratio 1.1 0.9-1.1 Activated Partial Thromboplast Time 26.4 21.0-31.0 SECONDS Partial Thromboplastin Ratio 1.0 Sodium Level 142 142 136-145 mmol/L Potassium Level 3.9 4.1 3.5-5.1 mmol/L Chloride Level 108 109 98-107 mmol/L Carbon Dioxide Level 25 23 21-32 mmol/L Anion Gap 9.0 10.0 3-11 mmol/L Blood Urea Nitrogen 28 20 7-18 mg/dl Creatinine 1.50 1.20 0.60-1.40 mg/dl Est Creatinine Clear Calc Drug Dose 58.1 71.6 ml/min Estimated GFR () 54.3 71.1 Estimated GFR (Non- 46.8 61.3 BUN/Creatinine Ratio 18.5 16.5 10-20 Random Glucose 136 148 70-99 mg/dl Calcium Level 9.4 8.2 8.5-10.1 mg/dl Magnesium Level 2.7 1.9 1.8-2.4 mg/dl Troponin I 0.076 0.086 0-0.045 ng/ml Procalcitonin < 0.05 0-0.5 ng/mL Hepatitis C Antibody Screen NEG NEG Bedside Lactic Acid Venous 3.33 0.90-1.70 mmol/L Arterial Blood pH 7.38 7.35-7.45 Arterial Blood Partial Pressure CO2 36 35-46 mmHg Arterial Blood Partial Pressure O2 67 80-95 mm/Hg Arterial Blood HCO3 21 19-24 mmol/L Arterial Blood Oxygen Saturation 91.9 90-95 % Arterial Blood Base Excess -3.8 -9-1.8 mEq/L Arterial Blood Gas Delivery ROOM AIR Eren Test POS POS Neutrophils (%) (Auto) 77.5 % Lymphocytes (%) (Auto) 9.2 % Monocytes (%) (Auto) 12.7 % Eosinophils (%) (Auto) 0.0 % Basophils (%) (Auto) 0.1 % Neutrophils # (Auto) 15.54 1.4-6.5 K/uL Lymphocytes # (Auto) 1.85 1.2-3.4 K/uL Monocytes # (Auto) 2.55 0.11-0.59 K/uL Eosinophils # (Auto) 0.01 0-0.5 K/uL Basophils # (Auto) 0.02 0-0.2 K/uL Immature Granulocyte % (Auto) 0.5 % Immature Granulocyte # (Auto) 0.10 0.00-0.02 K/uL Estimated Average Glucose 148 mg/dl Hemoglobin A1c 6.8 4.5-5.6 % Lactic Acid Level 2.2 0.4-2.0 mmol/L Phosphorus Level 2.1 2.5-4.9 mg/dl Total Bilirubin 0.8 0.2-1 mg/dl Direct Bilirubin 0.2 0-0.2 mg/dl Aspartate Amino Transf (AST/SGOT) 17 15-37 U/L Alanine Aminotransferase (ALT/SGPT) 28 12-78 U/L Alkaline Phosphatase 59 45-117 U/L Total Protein 6.2 6.4-8.2 gm/dl Albumin 3.3 3.4-5.0 gm/dl Thyroid Stimulating Hormone (TSH) 1.990 0.300-4.500 uIu/ml Test 12/02/16 05:55 Range/Units Stool Occult Blood POSITIVE NEGATIVE Microbiology Results 12/01/16 Blood Culture, Received Pending 12/01/16 Blood Culture, Received Pending 12/01/16 MRSA DNA Surveillance Screen - Final, Complete Specimen Negative for MRSA by DNA Probe 12/02/16 C.difficile Toxin B Gene (PCR) - Final, Complete No C. difficile toxin B gene detected 12/02/16 Shiga Toxin Test, Received Pending 12/02/16 Stool Culture, Received Pending Assessment & Plan Colitis of the Splenic Flexure and Descending colon - possible Ischemic Colitis vs Infectious Colitis - Stool studies: C. Diff not detected , shiga toxin and culture pending - blood cultures pending - Abdomen soft without guarding, rigidity or peritonitis - Lactic acid 2.2 Elevated Troponin at 0.086 today compared to 0.076 yesterday Plan: Continue IV fluid resuscitation Await GI consult, if no intervention patient may have clear liquids. Continue current management established by Transcribing Operators Supervisor No surgical intervention indicated at this time Dr. Veliz has seen and examined patient, agrees with assessment and plan. Pt seen and examined. Getting a nebulizer treatment. Hungry and is asking to eat. Abdominal pain has improved. Leukocytosis mildly better, lactate slowly improving with rehydration. He has passed flatus but also had a bloody bowel movement this morning. On IV zosyn. Abdominal exam is benign - softer, good bowel tones, no guarding or rigidity, less tender over RLQ hernia which is fully reducible. A/P: 1) Rectal bleeding, ? from ischemic colitis. Await GI input 2) Ischemic colitis in pt with know vascular disease and prior open AAA repair. Looks to be slowly improving. 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 Continue supportive measures. If no plan for intervention by GI, I am OK with starting him on clear liquids. Dr. Sutton to cover.
[2016-12-02 10:53] LABS: HEMATOCRIT 43.1 % (42-52)
[2016-12-02] MEDS ORDERED: PANTOprazole INJ 40 MG in SYRINGE 0 ML IV SCH (11:00)
--- NOTE | 2016-12-02 11:52 | Family Medicine Progress Note ---
Progress Note Date of Service Dec 02, 2016. Subjective Pt evaluation today including: conversation w/ patient, physical exam, chart review, lab review Pain: well-controlled PO Intake: nothing by mouth 71-year-old male with past medical history of a NSTEMI, AAA repair, CABG 2 who presented with abdominal pain, diaphoresis and dizziness yesterday. He had bright red clots per rectum while in the ER. CT abdomen and pelvis revealed ischemic colitis. He was admitted to the ICU overnight and was seen by general surgery. Currently been managed conservatively. No acute events overnight. Had one episode of bloody stools this morning. Continues to have right lower quadrant abdominal pain that is well controlled. Denies chest pain, palpitations, or dizziness, nausea or vomiting. Constitutional: No chills, No fever Eyes: No worsening of vision ENT: No hearing loss Respiratory: No cough, No sputum Cardiovascular: No chest pain Abdomen: + pain, No diarrhea, No nausea, No vomiting Musculoskeletal: No joint pain Male : No dysuria Neurologic: No memory loss Psychiatric: No depression symptoms Medications Current Inpatient Medications Medications (Trade) Dose Ordered Sig/Thu Route Start Time Stop Time Status Last Admin Dose Admin Ioversol (Optiray 320) 125 ml UD PRN IV 12/01/16 19:15 12/05/16 19:14 Lorazepam 1 mg 1 mg Q4H PRN IV 12/01/16 22:00 12/31/16 21:59 Lactated Ringer's 1,000 ml @ 125 mls/hr Q8H IV 12/01/16 23:45 12/31/16 23:44 12/02/16 07:41 125 MLS/HR Piperacillin Sod/ Tazobactam Sod/ Dextrose (Zosyn Iv/D5 100ml) 120 ml @ 30 mls/hr Q8H IV 12/02/16 03:00 12/12/16 02:59 12/02/16 10:27 30 MLS/HR Piperacillin Sod/ Tazobactam Sod 1 ea 1 ea UD PRN N/A 12/02/16 02:45 01/01/17 02:44 Levothyroxine Sodium/Syringe (Synthroid Inj/ Syringe) 4.5 ml @ 2.25 mls/ min DAILY@09 IV 12/02/16 09:00 12/02/16 12:00 12/02/16 08:46 2.25 MLS/MIN Hydralazine HCl (HydrALAZINE INJ) 10 mg Q8 PRN IV. 12/02/16 02:15 01/01/17 02:14 Ipratropium Rosebud (Atrovent 0.02% 0.5MG/2.5ML Neb) 0.5 mg Q6R INH 12/02/16 03:00 01/01/17 02:59 12/02/16 07:32 0.5 MG Levalbuterol (Xopenex 1.25MG/ 0.5ML Neb) 1.25 mg Q6R INH 12/02/16 03:00 01/01/17 02:59 12/02/16 07:32 1.25 MG Hydromorphone HCl (Dilaudid Inj) 1 mg Q2H PRN IV 12/02/16 09:15 12/16/16 09:14 Aspirin (Ecotrin Tab) 81 mg QAM PO 12/02/16 12:00 01/01/17 11:59 12/02/16 10:27 81 MG Atorvastatin Calcium (Lipitor Tab) 10 mg HS PO 12/02/16 21:00 01/01/17 20:59 Levothyroxine Sodium (Synthroid Tab) 0.175 mcg DAILYBB PO 12/03/16 06:00 01/02/17 05:59 Metoprolol Tartrate (Lopressor Tab) 25 mg BID PO 12/02/16 12:00 01/01/17 11:59 12/02/16 10:28 25 MG Montelukast Sodium (Singulair Tab) 10 mg PM PO 12/02/16 21:00 01/01/17 20:59 Pantoprazole Sodium (Protonix Tab) 40 mg QAM PO 12/02/16 12:00 01/01/17 11:59 12/02/16 10:28 40 MG Verapamil HCl (Calan-Sr Tab) 240 mg HS PO 12/02/16 21:00 01/01/17 20:59 Objective Vital Signs Date Time Temp Pulse Resp B/P Pulse Ox O2 Delivery O2 Flow Rate FiO2 12/02/16 10:00 92 26 136/59 96 Nasal Cannula 2.0 12/02/16 08:00 94 Room Air 12/02/16 08:00 37.4 93 22 135/76 94 Room Air 12/02/16 07:32 95 26 93 Room Air 12/02/16 06:11 104 112/79 12/02/16 06:10 106 22 112/79 93 Room Air 12/02/16 06:01 108 16 109/72 95 Room Air 12/02/16 05:01 116 27 131/78 96 Room Air 12/02/16 04:01 37.1 108 24 139/72 93 Room Air 12/02/16 04:00 Room Air 12/02/16 03:26 121 161/73 12/02/16 03:16 115 26 96 Room Air 12/02/16 03:02 111 23 161/73 74 Room Air 12/02/16 02:01 95 24 148/78 94 Room Air 12/02/16 01:01 97 22 119/77 91 Room Air 12/02/16 00:01 97 21 139/76 91 Room Air 12/01/16 23:12 36.8 93 19 110/67 96 Room Air 12/01/16 22:50 36.4 84 13 152/84 95 12/01/16 21:21 84 13 95 12/01/16 21:16 87 15 95 12/01/16 21:11 86 16 95 12/01/16 21:06 86 14 97 12/01/16 21:01 87 22 152/84 96 12/01/16 20:56 86 17 95 12/01/16 20:51 87 13 97 12/01/16 20:46 83 27 96 12/01/16 20:41 86 11 96 12/01/16 20:36 88 17 95 12/01/16 20:31 89 13 126/75 95 12/01/16 20:29 90 12/01/16 20:24 88 16 142/82 96 Room Air 12/01/16 20:01 142/82 12/01/16 19:07 96 Room Air 12/01/16 18:59 36.4 90 22 137/87 96 Room Air Physical Exam General Appearance: WD/WN, no apparent distress Eyes: normal inspection ENT: normal ENT inspection, hearing grossly normal Neck: supple Respiratory/Chest: chest non-tender, no respiratory distress, no accessory muscle use, + wheezing Cardiovascular: + tachycardia Abdomen: soft, + tenderness (in RLQ) Extremities: normal range of motion, non-tender Neurologic/Psychiatric: alert, normal mood/affect, oriented x 3 Skin: normal color Laboratory Results 12/02/16 05:47 Red Blood Count 4.49, Mean Corpuscular Volume 98.2, Mean Corpuscular Hemoglobin 33.6, Mean Corpuscular Hemoglobin Concent 34.2, Mean Platelet Volume 11.0, Neutrophils (%) (Auto) 77.5, Lymphocytes (%) (Auto) 9.2, Monocytes (%) (Auto) 12.7, Eosinophils (%) (Auto) 0.0, Basophils (%) (Auto) 0.1, Neutrophils # (Auto ) 15.54, Lymphocytes # (Auto) 1.85, Monocytes # (Auto) 2.55, Eosinophils # (Auto ) 0.01, Basophils # (Auto) 0.02 12/02/16 10:46 12/02/16 05:47 Test 12/01/16 19:05 12/01/16 20:49 12/01/16 22:45 12/02/16 05:47 Neutrophils % (Manual) 81.0 % Lymphocytes % (Manual) 10.0 % Monocytes % (Manual) 7.0 % Eosinophils % (Manual) 1.0 % Basophils % (Manual) 1.0 % (0-2) Neutrophils # (Manual) 18.47 K/uL (1.4-6.5) Total Absolute Neutrophils 18.47 K/uL (1.4-6.5) Lymphocytes # (Manual) 2.28 K/uL (1.2-3.4) Total Absolute Lymphocytes 2.28 K/uL (1.2-3.4) Monocytes # (Manual) 1.60 K/uL (0.11-0.59) Eosinophils # (Manual) 0.23 K/uL (0-0.5) Basophils # (Manual) 0.23 K/uL (0-0.2) Red Blood Cell Morphology Unremarkable Prothrombin Time 11.4 SECONDS (9.0-12.0) Prothromb Time International Ratio 1.1 (0.9-1.1) Activated Partial Thromboplast Time 26.4 SECONDS (21.0-31.0) Partial Thromboplastin Ratio 1.0 Procalcitonin < 0.05 ng/mL (0-0.5) Hepatitis C Antibody Screen NEG (NEG) Bedside Lactic Acid Venous 3.33 mmol/L (0.90-1.70) Arterial Blood pH 7.38 (7.35-7.45) Arterial Blood Partial Pressure CO2 36 mmHg (35-46) Arterial Blood Partial Pressure O2 67 mm/Hg (80-95) Arterial Blood HCO3 21 mmol/L (19-24) Arterial Blood Oxygen Saturation 91.9 % (90-95) Arterial Blood Base Excess -3.8 mEq/L (-9-1.8) Arterial Blood Gas Delivery ROOM AIR Eren Test POS (POS) White Blood Count 20.07 K/uL (4.8-10.8) Red Blood Count 4.49 M/uL (4.7-6.1) Hemoglobin 15.1 g/dL (14.0-18.0) Hematocrit 44.1 % (42-52) Mean Corpuscular Volume 98.2 fL (80-100) Mean Corpuscular Hemoglobin 33.6 pg (25-34) Mean Corpuscular Hemoglobin Concent 34.2 g/dl (32-36) Platelet Count 174 K/uL (130-400) Mean Platelet Volume 11.0 fL (7.4-10.4) Neutrophils (%) (Auto) 77.5 % Lymphocytes (%) (Auto) 9.2 % Monocytes (%) (Auto) 12.7 % Eosinophils (%) (Auto) 0.0 % Basophils (%) (Auto) 0.1 % Neutrophils # (Auto) 15.54 K/uL (1.4-6.5) Lymphocytes # (Auto) 1.85 K/uL (1.2-3.4) Monocytes # (Auto) 2.55 K/uL (0.11-0.59) Eosinophils # (Auto) 0.01 K/uL (0-0.5) Basophils # (Auto) 0.02 K/uL (0-0.2) RDW Standard Deviation 50.5 fL (36.4-46.3) RDW Coefficient of Variation 14.1 % (11.5-14.5) Immature Granulocyte % (Auto) 0.5 % Immature Granulocyte # (Auto) 0.10 K/uL (0.00-0.02) Anion Gap 10.0 mmol/L (3-11) Est Creatinine Clear Calc Drug Dose 71.6 ml/min Estimated GFR () 71.1 Estimated GFR (Non- 61.3 BUN/Creatinine Ratio 16.5 (10-20) Estimated Average Glucose 148 mg/dl Hemoglobin A1c 6.8 % (4.5-5.6) Calcium Level 8.2 mg/dl (8.5-10.1) Phosphorus Level 2.1 mg/dl (2.5-4.9) Magnesium Level 1.9 mg/dl (1.8-2.4) Total Bilirubin 0.8 mg/dl (0.2-1) Direct Bilirubin 0.2 mg/dl (0-0.2) Aspartate Amino Transf (AST/SGOT) 17 U/L (15-37) Alanine Aminotransferase (ALT/SGPT) 28 U/L (12-78) Alkaline Phosphatase 59 U/L (45-117) Troponin I 0.086 ng/ml (0-0.045) Total Protein 6.2 gm/dl (6.4-8.2) Albumin 3.3 gm/dl (3.4-5.0) Thyroid Stimulating Hormone (TSH) 1.990 uIu/ml (0.300-4.500) Test 12/02/16 05:55 12/02/16 10:46 Stool Occult Blood POSITIVE (NEGATIVE) Lactic Acid Level 1.9 mmol/L (0.4-2.0) Date/Time Source Procedure Growth Status 12/01/16 22:50 Nasal MRSA DNA Surveillance Screen - Final Specimen Negative for MRSA by DNA Probe Complete 12/02/16 05:50 Stool C.difficile Toxin B Gene (PCR) - Final No C. difficile toxin B gene detected Complete Assessment and Plan 71-year-old male with past medical history of a NSTEMI, AAA repair, CABG 2 who presented with abdominal pain, diaphoresis and dizziness yesterday. He had bright red clots per rectum while in the ER. CT abdomen and pelvis revealed colitis. Currently been managed conservatively. Colitis :Ischemic colitis versus infectious colitis - CT abdomen and pelvis: Mild wall thickening of the splenic flexure of the colon and the descending colon with mild pericolonic infiltration. The findings represent a nonspecific colitis and this distribution raises the possibility of ischemic colitis. No free air, pneumatosis or portal venous gas. - Lactic acid this morning at 2.2 from 3.3 yesterday, Continue to trend. - C. difficile negative, shiga and stool culture pending. - Nothing by mouth except meds - Continue IV fluids, LR at 125 mL per hour - For pain, continue with Dilaudid 1mg q2h and Ativan q6h PRN - GI consult - Gen. 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 - Will consider vascular surgery consult DVT prophylaxis: SCDs Full code Disposition: Transfer to telemetry Reviewed: Pt Seen/Exam by Me History Pt is very tired today. He is still having abd pain, but it is more localized to RLQ now. No chest pain, SOB. He is thirsty and apparently overnight got up and drank a glass of water while nursing was out of the room. He subsequently had several large bloody bowel movements per nursing. Agree with HPI/ROS as noted. General Appearance: WD/WN, no apparent distress Respiratory: normal breath sounds, no respiratory distress Cardiovascular: normal peripheral pulses, regular rate, rhythm Gastrointestinal: non tender, soft, distended Extremities: non-tender, no pedal edema Neurologic/Psychiatric: alert, normal mood/affect Skin Characteristics: normal color, warm/dry Assessment/Plan Resident Physician Supervision Note: I discussed the case with the resident and agree with the findings and plan as documented in the note. Any exceptions or clarifications are listed here: Possible ischemic colitis, surgery is planning for conservative management at this time Monitor Severe stenosis of prox/mid SMA noted, will need addressed once colitis is more stable CON on admission is improving on IVF Documented By: Nae Ochoa
--- NOTE | 2016-12-02 15:06 | ECHOCARDIOGRAM REPORT ---
*NOTICE TO RECEIVING DEMOCRAT AGENCY This information is strictly Confidential and protected under [place] law. [place] law prohibits you from making any further disclosure of this information unless further disclosure is expressly permitted by the written consent of the person to whom it pertains or is authorized by law. A general authorization for the release of medical or other information is not sufficient for this purpose. Hospital accepts no responsibility if the information is made available to any other person, INCLUDING THE PATIENT. Interpretation Summary * Name: NEEMA BUNCH Study Date: 12/02/2016 07:05 AM BP: 139/72 mmHg * [facility] HR: 108 * : 1945 (M/d/yy) Gender: Male Height: 71 in * Age: 71 yrs Ethnicity: CA Weight: 231 lb * Ordering Physician: Cori Baez * Performed By: Tereza Hodgson * * Reason For Study: PREVIOUS GLOBAL HYPOKINESIS IN 2014 * BSA: 2.2 m2 * -- Conclusions -- * Poor image quality may affect interpretation * There is moderate concentric left ventricular hypertrophy. * Left ventricular systolic function is moderately reduced. * The left atrium is severely dilated. * Grade I diastolic dysfunction, (abnormal relaxation pattern). * Compared to a study from 08/2015, there is minimal change Procedure Details * A complete two-dimensional transthoracic echocardiogram was performed (2D, M-mode, Doppler and color flow Doppler). * The study was technically difficult. * There were technical limitations due to patient'sinability to cooperate * A contrast injection of Definity was performed to improve assessment of LV function. * Contrast was injected into an intravenous site in the right arm. * One vial of Definity ultrasound contrast was diluted in normal saline to a total volume of 10 ml. A total of '2' ml of solution was administered during imaging. * Lot # [id number] of Definity utilized for procedure. * Expiration date 10/06. * The attending nurse who injected the contrast agent was ELEUTERIO CHU RN. Left Ventricle * The left ventricle is normal in size. * There is moderate concentric left ventricular hypertrophy. * Mostly septal hypertrophy * Ejection Fraction = 35-40%. * Left ventricular systolic function is moderately reduced. * There is moderate global hypokinesis of the left ventricle. Right Ventricle * The right ventricle is not well visualized. Atria * The left atrium is severely dilated. * Right atrium not well visualized. Mitral Valve * The mitral valve is grossly normal. * Significant mitral regurgitation is absent. Tricuspid Valve * The tricuspid valve is not well visualized. * There is trace tricuspid regurgitation. Aortic Valve * The aortic valve is normal in structure and function. * No hemodynamically significant valvular aortic stenosis. * There is no significant aortic regurgitation. Great Vessels * The aortic root is normal size. Pericardium/Pleural * There is no pericardial effusion. Left Ventricular Diastolic Function * Grade I diastolic dysfunction, (abnormal relaxation pattern). MMode 2D Measurements and Calculations IVSd 2.2 cm IVSs 2.4 cm LVIDd 5.4 cm LVIDs 4.2 cm LVPWd 1.0 cm LVPWs 1.6 cm IVS/LVPW 2.1 FS 22.4 % EDV(Teich) 140.9 ml ESV(Teich) 77.8 ml EF(Teich) 44.8 % EDV(cubed) 156.8 ml ESV(cubed) 73.1 ml EF(cubed) 53.4 % % IVS thick 9.0 % % LVPW thick 51.9 % LV mass(C)d 395.6 grams LV mass(C)dI 176.5 grams/m\S\2 LV mass(C)s 381.5 grams LV mass(C)sI 170.2 grams/m\S\2 SV(Teich) 63.1 ml SI(Teich) 28.1 ml/m\S\2 SV(cubed) 83.7 ml SI(cubed) 37.3 ml/m\S\2 ACS 1.7 cm LA dimension 5.9 cm asc Aorta Diam 3.6 cm LVOT diam 1.9 cm LVOT area 2.9 cm\S\2 LVAd ap4 52.6 cm\S\2 LVLd ap4 9.5 cm EDV(MOD-sp4) 238.1 ml EDV(sp4-el) 246.5 ml LVAs ap4 36.2 cm\S\2 LVLs ap4 8.6 cm ESV(MOD-sp4) 127.1 ml ESV(sp4-el) 129.1 ml EF(MOD-sp4) 46.6 % EF(sp4-el) 47.6 % LVAd ap2 34.5 cm\S\2 LVLd ap2 8.3 cm EDV(MOD-sp2) 116.3 ml EDV(sp2-el) 122.1 ml LVAs ap2 24.0 cm\S\2 LVLs ap2 7.4 cm ESV(MOD-sp2) 63.1 ml ESV(sp2-el) 66.2 ml EF(MOD-sp2) 45.7 % EF(sp2-el) 45.8 % LVLd %diff -15.53 % EDV(MOD-bp) 177.6 ml LVLs %diff -16.84 % ESV(MOD-bp) 96.6 ml EF(MOD-bp) 45.6 % SV(MOD-sp4) 110.9 ml SI(MOD-sp4) 49.5 ml/m\S\2 SV(MOD-sp2) 53.2 ml SI(MOD-sp2) 23.7 ml/m\S\2 SV(MOD-bp) 81.1 ml SI(MOD-bp) 36.2 ml/m\S\2 SV(sp4-el) 117.4 ml SI(sp4-el) 52.4 ml/m\S\2 SV(sp2-el) 55.9 ml SI(sp2-el) 24.9 ml/m\S\2 Doppler Measurements and Calculations MV E max nate 67.3 cm/sec MV A max nate 120.8 cm/sec MV E/A 0.56 MV dec time 0.29 sec Ao V2 max 150.1 cm/sec Ao max PG 9.0 mmHg Ao max PG (full) -0.58 mmHg MEMO(V,A) 3.0 cm\S\2 MEMO(V,D) 3.0 cm\S\2 LV V1 max PG 9.6 mmHg LV V1 max 154.9 cm/sec PA V2 max 131.6 cm/sec PA max PG 6.9 mmHg PI end-d nate 126.3 cm/sec
[2016-12-02 16:31] LABS: HEMATOCRIT 41.6 % (42-52)
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
[2016-12-02] MEDS ORDERED: LAVAGE SOLUTION 4000ML PO ONE (18:00)
[2016-12-02] MEDS ORDERED: LAVAGE SOLUTION 4000ML PO PRN (19:00)
[2016-12-02] MEDS: HYDROmorphone INJ 1 MG/ML SYR IV PRN ×2 (19:03→21:32)
[2016-12-02] MEDS ORDERED: NURSING VERBAL MED ORDER ONE ×2 (19:45→21:45)
[2016-12-02] MEDS ORDERED: ACETAMINOPHEN 325 MG TAB PO PRN (20:00)
[2016-12-02] MEDS ORDERED: LORAZEPAM 1 MG TAB PO PRN (20:00)
[2016-12-02] MEDS: ATORVASTATIN 10 MG TAB PO SCH (21:26)
[2016-12-02] MEDS: MONTELUKAST SOD 10 MG TAB PO SCH (21:26)
[2016-12-02] MEDS: VERAPAMIL HCL 240 MG TABCR PO SCH (21:26)
[2016-12-02] MEDS ORDERED: ONDANSETRON INJ 2 MG/ML 2 ML VIAL ONE (21:39)
[2016-12-02] MEDS ORDERED: ONDANSETRON INJ 2 MG/ML 2 ML VIAL IV PRN (22:00)
[2016-12-02 22:54] LABS: HEMATOCRIT 41.1 % (42-52)
[2016-12-03] VITALS (9 sets, daily range): BP systolic 113–147; BP diastolic 61–75; PULSE 60–83; TEMP 36.6–37.7; O2SAT 85–98
[2016-12-03] MEDS: LACTATED RINGER'S 1000ML 1,000 ML IV SCH ×3 (00:45→11:46)
[2016-12-03] MEDS: HYDROmorphone INJ 1 MG/ML SYR IV PRN ×4 (00:46→20:45)
[2016-12-03] MEDS: IPRATROPIUM BROMIDE NEB SOLN 0.02% 2.5 ML VIAL INH SCH ×4 (02:24→19:19)
[2016-12-03] MEDS: LEVALBUTEROL 1.25MG/0.5ML NEB INH SCH ×4 (02:24→19:19)
[2016-12-03] MEDS: PIPERACILL/TAZOBAC IV 4.5 GM in DEXTROSE 5% 100ML 100 ML IV SCH ×3 (03:08→18:42)
[2016-12-03] MEDS: LEVOTHYROXINE 175 MCG TAB PO SCH (04:59)
[2016-12-03] MEDS ORDERED: LEVOTHYROXINE 175 MCG TAB PO SCH (06:00)
[2016-12-03 07:28] LABS: BASO % 0.1 %; BASO ABS # 0.02 K/uL (0-0.2); COMPLETE YES; EOS % 0.2 %; HEMATOCRIT 42.6 % (42-52); IG% 0.6 %; LYMPH % 9.6 %; LYMPH ABS # 1.58 K/uL (1.2-3.4); MEAN CELL VOLUME 101.2 fL (80-100); MEAN CORPUSCULAR HGB CONC 33.6 g/dl (32-36); MEAN PLATELET VOLUME 11.5 fL (7.4-10.4); MONO % 12.3 %; NEUT % 77.2 %; PLATELET COUNT 148 K/uL (130-400); RED BLOOD COUNT 4.21 M/uL (4.7-6.1); WHITE BLOOD COUNT 16.44 K/uL (4.8-10.8)
[2016-12-03] MEDS: ASPIRIN 81 MG ECTAB PO SCH (07:39)
[2016-12-03] MEDS: METOPROLOL TARTRATE 25 MG TAB PO SCH ×2 (07:39→20:41)
[2016-12-03] MEDS: PANTOprazole SOD 40 MG TAB PO SCH (07:40)
[2016-12-03 07:59] LABS: CALCIUM 8.3 mg/dl (8.5-10.1); CREATININE 0.87 mg/dl (0.60-1.40); MAGNESIUM 1.8 mg/dl (1.8-2.4); POTASSIUM 3.7 mmol/L (3.5-5.1)
--- NOTE | 2016-12-03 09:36 | Clinical Documentation Query ---
Dr. MAURICIO [facility] : CLINICAL DOCUMENTATION QUERY Patient is a 71 year old male admitted with ischemic colitis versus infectious colitis. Admission BUN and creatinine were 28 mg/dl and 1.50 mg/dl. Repeat values this a.m. (12/03) are 16 mg/dl and 0.87 mg/dl. Documentation 12/02 included "CON". This assigns a code for an unspecified disorder of the kidney and lacks the inherent specificity and severity associated with NURIA. If this was the intent of this documentation, consider clarification as suggested below. Thank you. In your clinical opinion is this patient being managed for: ( ) Acute kidney failure, POA, improved/resolved. ( ) Other explanation of clinical findings (Please Explain) ( ) Unable to determine (Please Define) ( ) Need to Discuss ( ) Not Agree The medical record reflects the following clinical findings, treatment, and risk factors. Clinical Indicators: As above Treatment: IVF, serial chemistries Risk Factors: Age, poor intake, hypotension, ischemic or infectious colitis. Please clarify and document your clinical opinion in the progress notes and discharge summary. Terms such as "probable", "suspected", "likely", "questionable", "possible", or "still to be ruled out" are acceptable. IF IN AGREEMENT, YOU MUST DOCUMENT ABOVE DIAGNOSTIC STATEMENT IN DAILY PROGRESS NOTES AND DISCHARGE SUMMARY. This document is not part of the patient's record. Thank You, Juan Saeed, JOSE [phone]
--- NOTE | 2016-12-03 09:37 | Clinical Documentation Query ---
[facility] : CLINICAL DOCUMENTATION QUERY Patient is a 71 year old male admitted with ischemic colitis versus infectious colitis. Admission BUN and creatinine were 28 mg/dl and 1.50 mg/dl. Repeat values this a.m. (12/03) are 16 mg/dl and 0.87 mg/dl. Documentation 12/02 included "CON". This assigns a code for an unspecified disorder of the kidney and lacks the inherent specificity and severity associated with NURIA. If this was the intent of this documentation, consider clarification as suggested below. Thank you. In your clinical opinion is this patient being managed for: ( x ) Acute kidney failure, POA, improved/resolved. ( ) Other explanation of clinical findings (Please Explain) ( ) Unable to determine (Please Define) ( ) Need to Discuss ( ) Not Agree The medical record reflects the following clinical findings, treatment, and risk factors. Clinical Indicators: As above Treatment: IVF, serial chemistries Risk Factors: Age, poor intake, hypotension, ischemic or infectious colitis. Please clarify and document your clinical opinion in the progress notes and discharge summary. Terms such as "probable", "suspected", "likely", "questionable", "possible", or "still to be ruled out" are acceptable. IF IN AGREEMENT, YOU MUST DOCUMENT ABOVE DIAGNOSTIC STATEMENT IN DAILY PROGRESS NOTES AND DISCHARGE SUMMARY. This document is not part of the patient's record. Thank You, Juan Saeed RN [phone]
--- NOTE | 2016-12-03 10:47 | Surgery Progress Note ---
Surgery Progress Note Date of Service Dec 03, 2016. Subjective Post OP Day: HD # 2 + bowel movement, + flatus, + nausea, + pain controlled, No SOB, No chest pain, No vomiting Bowel movements due to bowel prep for colonoscopy No blood in stools Slight nausea no vomiting +abdominal cramping Better than yesterday Objective Vital Signs: Date Time Temp Pulse Resp B/P Pulse Ox O2 Delivery O2 Flow Rate FiO2 12/03/16 08:00 Nasal Cannula 2.0 12/03/16 07:59 66 20 98 Nasal Cannula 2.0 12/03/16 07:29 37.0 72 20 147/72 96 2.0 12/03/16 05:04 Nasal Cannula 2.0 12/03/16 04:00 Nasal Cannula 2.0 12/03/16 03:31 37.0 64 20 113/61 97 Nasal Cannula 2.0 12/03/16 02:25 60 20 94 Nasal Cannula 2.0 12/03/16 00:01 97 Nasal Cannula 2.0 12/02/16 23:23 36.8 70 18 135/70 97 Room Air 12/02/16 20:00 Nasal Cannula 2.0 12/02/16 19:30 99 20 96 Nasal Cannula 2.0 12/02/16 19:03 37.0 81 22 122/68 93 Room Air 12/02/16 15:20 Nasal Cannula 2.0 12/02/16 15:16 95 18 96 Nasal Cannula 2.0 12/02/16 14:45 37.2 106 19 114/66 100 Nasal Cannula 2.0 12/02/16 12:00 37.2 100 26 125/64 95 Nasal Cannula 2.0 12/02/16 12:00 95 Nasal Cannula 2.0 General Appearance: WD/WN, no apparent distress Head: normocephalic, atraumatic Respiratory/Chest: no respiratory distress, no accessory muscle use Abdomen: non distended, soft, no organomegaly, + tenderness (RLQ, no rigidity or guarding, no peritonitis), + pertinent finding (RLQ abdominal wall hernia, reducible) Laboratory Results: Results Past 24 Hours Test 12/02/16 10:46 12/02/16 13:54 12/02/16 16:12 12/02/16 16:21 Range/Units Hemoglobin 14.7 14.3 14.0-18.0 g/dL Hematocrit 43.1 41.6 42-52 % Lactic Acid Level 1.9 1.3 0.4-2.0 mmol/L Troponin I 0.075 0-0.045 ng/ml Bedside Glucose 121 70-99 mg/dl Test 12/02/16 22:48 12/03/16 06:44 Range/Units Hemoglobin 14.3 14.3 14.0-18.0 g/dL Hematocrit 41.1 42.6 42-52 % Lactic Acid Level 0.9 0.4-2.0 mmol/L White Blood Count 16.44 4.8-10.8 K/uL Red Blood Count 4.21 4.7-6.1 M/uL Mean Corpuscular Volume 101.2 80-100 fL Mean Corpuscular Hemoglobin 34.0 25-34 pg Mean Corpuscular Hemoglobin Concent 33.6 32-36 g/dl Platelet Count 148 130-400 K/uL Mean Platelet Volume 11.5 7.4-10.4 fL Neutrophils (%) (Auto) 77.2 % Lymphocytes (%) (Auto) 9.6 % Monocytes (%) (Auto) 12.3 % Eosinophils (%) (Auto) 0.2 % Basophils (%) (Auto) 0.1 % Neutrophils # (Auto) 12.67 1.4-6.5 K/uL Lymphocytes # (Auto) 1.58 1.2-3.4 K/uL Monocytes # (Auto) 2.03 0.11-0.59 K/uL Eosinophils # (Auto) 0.04 0-0.5 K/uL Basophils # (Auto) 0.02 0-0.2 K/uL RDW Standard Deviation 51.8 36.4-46.3 fL RDW Coefficient of Variation 14.1 11.5-14.5 % Immature Granulocyte % (Auto) 0.6 % Immature Granulocyte # (Auto) 0.10 0.00-0.02 K/uL Sodium Level 139 136-145 mmol/L Potassium Level 3.7 3.5-5.1 mmol/L Chloride Level 104 98-107 mmol/L Carbon Dioxide Level 24 21-32 mmol/L Anion Gap 11.0 3-11 mmol/L Blood Urea Nitrogen 16 7-18 mg/dl Creatinine 0.87 0.60-1.40 mg/dl Est Creatinine Clear Calc Drug Dose 98.7 ml/min Estimated GFR () 102.1 Estimated GFR (Non- 88.1 BUN/Creatinine Ratio 18.0 10-20 Random Glucose 124 70-99 mg/dl Calcium Level 8.3 8.5-10.1 mg/dl Phosphorus Level 2.0 2.5-4.9 mg/dl Magnesium Level 1.8 1.8-2.4 mg/dl Total Bilirubin 1.4 0.2-1 mg/dl Direct Bilirubin 0.3 0-0.2 mg/dl Aspartate Amino Transf (AST/SGOT) 17 15-37 U/L Alanine Aminotransferase (ALT/SGPT) 21 12-78 U/L Alkaline Phosphatase 48 45-117 U/L Total Protein 5.8 6.4-8.2 gm/dl Albumin 2.9 3.4-5.0 gm/dl Assessment & Plan Colitis of the Splenic Flexure and Descending colon - possible Ischemic Colitis - Stool studies: C. Diff not detected , shiga toxin and culture pending - blood cultures preliminary showing no growth - Abdomen soft without guarding, rigidity or peritonitis. RLQ abdominal wall hernia reducible - Lactic acid within normal limits last evening at 0.9 Plan: Patient going for colonoscopy today Abdomen soft and no peritoneal signs, No indication for surgery at this time. Continue current management by GI and Medicine services Will continue to follow Dr. Warner covering this weekend. Dr. Sutton has seen and examined patient, agrees with above stated findings and treatment plan.
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
--- NOTE | 2016-12-03 15:02 | Endo History and Physical ---
History & Physical Date of Service: Dec 03, 2016. Chief Complaint: Rectal bleeding Referring Physician: Dr. Carr History of Present Illness For colonoscopy Past Medical History Reflux, High Cholesterol, CABG, Hypertension, COPD, Thyroid Disease, PR Past Surgical History Hx Cardiac Surgery: Yes (cabg) Hx Pacemaker: No Hx Abdominal Surgery: Yes (aaa repair) Hx Post-Op Nausea and Vomiting: No Hx Cancer Surgery: No Hx Thoracic Surgery: No Hx Orthopedic: No Hx Urinary Tract Surgery: No Social History Smoking Status: Current Every Day Smoker Smokeless Tobacco Use: No (patient stated he rarely drinks alcohol) Hx Substance Use: Yes (Dilaudid IV for pain management.) Allergies Coded Allergies: Amoxicillin (Verified Adverse Reaction, Unknown, UPSET STOMACH, 09/03/15) Clavulanic Acid (Verified Adverse Reaction, Unknown, UPSET STOMACH, ) Current Medications Reported Home Medications Medications Dose Route/Sig Max Daily Dose Days Date Category Benazepril Hcl 5 Mg Tab 5 Mg PO DAILY 12/01/16 Reported Levalbuterol HCl (Levalbuterol) 1.25 Mg/3 Ml Nebu 1 Dose INH PRN UD 12/01/16 Reported [Proair] 2 Puff INH Q4 PRN 12/01/16 Reported Astelin Nasal [place]aughton (Azelastine Hcl) 200 Sprays/30 Ml Haughton 2 Sprays MICHELLE DAILY 12/01/16 Reported Breo Ellipta 200-25 Mcg/INH (Fluticasone Furoate-Vilanterol) 1 Inh Inh 1 Puff INH DAILY 12/01/16 Reported Ultram (Tramadol Hcl) 50 Mg Tab 50 Mg PO BID PRN 12/01/[address] (Diclofenac Sod) 75 Mg Tabcr 75 Mg PO BID 12/01/16 Reported Verapamil Hcl Er (Verapamil Hcl) 240 Mg Cap 240 Mg PO QPM 12/01/16 Reported Atorvastatin Calcium (Atorvastatin) 10 Mg Tab 10 Mg PO DAILY 12/01/16 Reported Aspirin Ec (Aspirin) 81 Mg Tab 81 Mg PO DAILY 09/03/15 Reported Vitamin D (Ergocalciferol) 50,000 Interunit Cap 50,000 Units PO WK 08/28/15 Reported Prilosec (Omeprazole) 10 Mg Capcr 10 Mg PO DAILY 02/04/15 Reported Lopressor (Metoprolol Tartrate) 25 Mg Tab 25 Mg PO BID 02/04/15 Reported Levothyroxine Sodium 175 Mcg Tab 175 Mcg PO DAILY 12/31/14 Reported Montelukast Sodium (Montelukast Sod) 10 Mg Tab 10 Mg PO DAILY 12/31/14 Reported Vital Signs Weight (Kilograms): 104.900 Height (Feet): 5 Height (Inches): 11.00 Date Time Temp Pulse Resp B/P Pulse Ox O2 Delivery O2 Flow Rate FiO2 12/03/16 14:44 37.4 69 24 140/69 94 Room Air 12/03/16 14:10 65 20 85 Room Air 12/03/16 12:00 Nasal Cannula 2.0 12/03/16 10:56 37.7 64 20 114/71 94 Room Air 12/03/16 08:00 Nasal Cannula 2.0 12/03/16 07:59 66 20 98 Nasal Cannula 2.0 12/03/16 07:29 37.0 72 20 147/72 96 2.0 12/03/16 05:04 Nasal Cannula 2.0 12/03/16 04:00 Nasal Cannula 2.0 12/03/16 03:31 37.0 64 20 113/61 97 Nasal Cannula 2.0 12/03/16 02:25 60 20 94 Nasal Cannula 2.0 12/03/16 00:01 97 Nasal Cannula 2.0 12/02/16 23:23 36.8 70 18 135/70 97 Room Air 12/02/16 20:00 Nasal Cannula 2.0 12/02/16 19:30 99 20 96 Nasal Cannula 2.0 12/02/16 19:03 37.0 81 22 122/68 93 Room Air 12/02/16 15:20 Nasal Cannula 2.0 12/02/16 15:16 95 18 96 Nasal Cannula 2.0 Physical Exam General Appearance: + obese Respiratory/Chest: Respiratory effort: no dyspnea Auscultation: decreased breath sounds, expiratory wheezing Cardiovascular: Heart Auscultation: RRR Abdomen: Inspection & Palpation: LLQ tenderness Assessment and Plan Rectal bleeding for colonoscopy
--- NOTE | 2016-12-03 15:14 | Discharge Instructions ---
Endoscopy Patient Instructions Date / Procedure(s) Performed Dec 03, 2016. Colonoscopy Allergy Information Coded Allergies: Amoxicillin (Verified Adverse Reaction, Unknown, UPSET STOMACH, 09/03/15) Clavulanic Acid (Verified Adverse Reaction, Unknown, UPSET STOMACH, ) Discharge Date / Findings Dec 03, 2016. Diverticulosis, Ischemic colitis Medication Instructions Restart Stopped Medication(s): resume meds Current Inpatient Medications Medications (Trade) Dose Ordered Sig/Thu Route Start Time Stop Time Status Last Admin Dose Admin Ioversol 125 ml 125 ml UD PRN IV 12/01/16 19:15 12/05/16 19:14 Lactated Ringer's 1,000 ml @ 125 mls/hr Q8H IV 12/01/16 23:45 12/31/16 23:44 12/03/16 11:46 125 MLS/HR Piperacillin Sod/ Tazobactam Sod/ Dextrose (Zosyn Iv/D5 100ml) 120 ml @ 30 mls/hr Q8H IV 12/02/16 03:00 12/12/16 02:59 12/03/16 11:46 30 MLS/HR Piperacillin Sod/ Tazobactam Sod (Consult) 1 ea UD PRN N/A 12/02/16 02:45 01/01/17 02:44 Hydralazine HCl (HydrALAZINE INJ) 10 mg Q8 PRN IV. 12/02/16 02:15 01/01/17 02:14 Ipratropium [place] (Atrovent 0.02% 0.5MG/2.5ML Neb) 0.5 mg Q6R INH 12/02/16 03:00 01/01/17 02:59 12/03/16 14:32 0.5 MG Levalbuterol (Xopenex 1.25MG/ 0.5ML Neb) 1.25 mg Q6R INH 12/02/16 03:00 01/01/17 02:59 12/03/16 14:32 1.25 MG Hydromorphone HCl (Dilaudid Inj) 1 mg Q2H PRN IV 12/02/16 09:15 12/16/16 09:14 12/03/16 07:37 1 MG Aspirin (Ecotrin Tab) 81 mg QAM PO 12/02/16 12:00 01/01/17 11:59 12/03/16 07:39 81 MG Atorvastatin Calcium (Lipitor Tab) 10 mg HS PO 12/02/16 21:00 01/01/17 20:59 12/02/16 21:26 10 MG Metoprolol Tartrate (Lopressor Tab) 25 mg BID PO 12/02/16 12:00 01/01/17 11:59 12/03/16 07:39 25 MG Montelukast Sodium (Singulair Tab) 10 mg PM PO 12/02/16 21:00 01/01/17 20:59 12/02/16 21:26 10 MG Pantoprazole Sodium (Protonix Tab) 40 mg QAM PO 12/02/16 12:00 01/01/17 11:59 12/03/16 07:40 40 MG Verapamil HCl (Calan-Sr Tab) 240 mg HS PO 12/02/16 21:00 01/01/17 20:59 12/02/16 21:26 240 MG Lorazepam (Ativan Tab) 1 mg Q4H PRN PO 12/02/16 20:00 01/01/17 19:59 Acetaminophen (Tylenol Tab) 650 mg Q6H PRN PO 12/02/16 20:00 01/01/17 19:59 Ondansetron HCl (Zofran Inj) 4 mg Q6H PRN IV 12/02/16 22:00 01/01/17 21:59 12/03/16 04:51 4 MG Levothyroxine Sodium (Synthroid Tab) 175 mcg DAILYBB PO 12/03/16 06:00 01/02/17 05:59 12/03/16 04:59 175 MCG Provider Instructions Activity Restrictions - No exercising or heavy lifting for 24 hours. - Do not drink alcohol the day of the procedure. - Do not drive a car or operate machinery until the day after the procedure. - Do not make any important decisions or sign important papers in 24 hours after the procedure. Following Day: - Return to full activity which may include returning to work/school. Diet Start your diet with liquids and light foods (jello, soup, juice, toast). Then eat your usual diet if not nauseated. Treatment For Common After Affects For mild abdominal pain, bloating, or excessive gas: - Rest - Eat lightly - Lie on right side Follow-Up Information Follow-up with as scheduled Anesthesia Information What You Should Know You have had a procedure that required some medicine to reduce anxiety and discomfort. This treatment is called moderate sedation. After receiving the treatment, you may be sleepy, but you will be able to breathe on your own. The effects of the treatment may last for several hours. Follow these instructions along with Activity/Diet recommendations noted above: * Do NOT do anything where dizziness or clumsiness would be dangerous. * Rest quietly at home today, then you can be up and about tomorrow. * Have a responsible person stay with you the rest of today. * You may have had an I.V. today. If so, you may take the dressing off later today. Recommendations Call your doctor if: * Trouble breathing * Continuous vomiting for more than 24 hours * Temperature above 101 degrees * Severe abdominal pain or bloating * Pain not relieved by pain medicine ordered * There is increased drainage or redness from any incision * A large amount of rectal bleeding greater than 2-3 tablespoons. (If you had a polyp/s removed or have hemorrhoids, a small amount of blood - from the rectum is to be expected.) * You have any unanswered questions or concerns. IN THE EVENT OF A SERIOUS EMERGENCY, GO TO THE NEAREST EMERGENCY ROOM Your discharge instructions were prepared by provider Casa Hernandez. Patient Instructions Signature Page Wade Gar Patient (or Guardian) Signature/Date: I have read and understand the instructions given to me by my caregivers. Caregiver/RN/Doctor Signature/Date: The above-named patient and/or guardian has received patient instructions on this date. + Original Patient Signature Page (only) stays with chart. Please make copy for patient.
--- NOTE | 2016-12-03 15:19 | GI REPORT ---
Procedure Date: 12/03/2016 3:05 PM Procedure: Colonoscopy Indications: Rectal bleeding, Abnormal CT of the GI tract Medicines: Propofol total dose 90 mg IV, Lidocaine 40 mg IV Complications: No immediate complications. Estimated Blood Loss: Estimated blood loss was minimal. Procedure: Pre-Anesthesia Assessment: - Prior to the procedure, a History and Physical was performed, and patient medications, allergies and sensitivities were reviewed. The patient's tolerance of previous anesthesia was reviewed. - The risks and benefits of the procedure and the sedation options and risks were discussed with the patient. All questions were answered and informed consent was obtained. After I obtained informed consent, the scope was passed under direct vision. Throughout the procedure, the patient's blood pressure, pulse, and oxygen saturations were monitored continuously. The scope was introduced through the anus and advanced to the descending colon. The colonoscopy was performed without difficulty. The patient tolerated the procedure well. The quality of the bowel preparation was fair. Findings: Multiple diverticula were found in the sigmoid colon. Patchy moderate inflammation characterized by congestion (edema), loss of vascularity and confluent ulcerations was found in the descending colon. Biopsies were taken with a cold forceps for histology. Estimated blood loss was minimal. Impression: - Diverticulosis in the sigmoid colon. - Patchy moderate inflammation was found in the descending colon secondary to ischemic colitis. Biopsied. Recommendation: - [facility]. - Continue present medications. Casa Hernandez M.D. Casa Hernandez MD 12/03/2016 3:19:12 PM This report has been signed electronically. Note Initiated On: 12/03/2016 3:05 PM I attest to the content of the Intraoperative Record and orders documented therein, exceptions below
[2016-12-03] MEDS ORDERED: LIDOCAINE HCL 2% 2 ML VIAL (20MG/ML) ONE (15:45)
[2016-12-03] MEDS ORDERED: PROPOFOL IV EMULSION 10 MG/ML 20 ML VIAL IV ONE (15:45)
--- NOTE | 2016-12-03 15:47 | GASTROENTEROLOGY PROGRESS NOTE ---
DATE: 12/03/2016 DATE: 12/03/2016. SUBJECTIVE: The patient underwent a colonoscopy today for rectal bleeding. Prep was fair due to him only taking half of the bowel prep. Despite this I was able to see adequately through the left colon. The sigmoid area showed multiple diverticula, but no other abnormalities. Once I reached the descending colon, there was evidence of inflammation and desquamation consistent with ischemic colitis. This area was biopsied and because of the possibility that this was ischemic and higher risk of perforation the procedure was terminated in the descending colon. IMPRESSION: The patient has features on colonoscopy consistent with left-sided ischemic colitis. Biopsies are pending. At this point the patient is being treated with bowel rest, which would be continued. Also, Dr. Cordero from vascular surgery is following the patient to determine if any intervention vascular olguin is necessary.
--- NOTE | 2016-12-03 15:52 | Anesthesiology Progress Note ---
Anesthesia Post Op Note Date & Time Dec 03, 2016 at 15:52 Vital Signs Pain Intensity: 0 Vital Signs Past 12 Hours Date Time Temp Pulse Resp B/P Pulse Ox O2 Delivery O2 Flow Rate FiO2 12/03/16 15:48 66 16 147/63 96 Room Air 12/03/16 15:33 65 16 139/63 96 Room Air 12/03/16 15:18 68 16 118/55 96 Room Air 12/03/16 14:44 37.4 69 24 140/69 94 Room Air 12/03/16 14:10 65 20 85 Room Air 12/03/16 12:00 Nasal Cannula 2.0 12/03/16 10:56 37.7 64 20 114/71 94 Room Air 12/03/16 08:00 Nasal Cannula 2.0 12/03/16 07:59 66 20 98 Nasal Cannula 2.0 12/03/16 07:29 37.0 72 20 147/72 96 2.0 12/03/16 05:04 Nasal Cannula 2.0 12/03/16 04:00 Nasal Cannula 2.0 Notes Mental Status: alert / awake / arousable, participated in evaluation Pt Amnestic to Procedure: Yes Nausea / Vomiting: adequately controlled Pain: adequately controlled Airway Patency, RR, SpO2: stable & adequate BP & HR: stable & adequate Hydration State: stable & adequate Anesthetic Complications: no major complications apparent
--- NOTE | 2016-12-03 17:14 | Family Medicine Progress Note ---
Progress Note Date of Service Dec 03, 2016. Subjective Pt evaluation today including: conversation w/ patient, physical exam, chart review, lab review Pain: continues to have right lower quadrant pain but is well controlled PO Intake: NPO except meds 71-year-old male with past medical history of a NSTEMI, AAA repair, CABG 2 who presented with abdominal pain, diaphoresis and dizziness yesterday. He had bright red clots per rectum while in the ER. CT abdomen and pelvis revealed ischemic colitis. He was admitted to the ICU overnight and was seen by general surgery. Currently been managed conservatively. No acute events overnight. Had one episode of bloody stools yesterday morning. Continues to have right lower quadrant abdominal pain that is well controlled. Denies chest pain, palpitations, or dizziness, nausea or vomiting. Scheduled for colonoscopy today Constitutional: No chills, No fever Eyes: No worsening of vision ENT: No hearing loss Respiratory: No cough, No sputum Cardiovascular: No chest pain Abdomen: + pain, No diarrhea, No nausea, No vomiting Male : No dysuria Psychiatric: No depression symptoms Medications Current Inpatient Medications Medications (Trade) Dose Ordered Sig/Thu Route Start Time Stop Time Status Last Admin Dose Admin Ioversol 125 ml 125 ml UD PRN IV 12/01/16 19:15 12/05/16 19:14 Lactated Ringer's 1,000 ml @ 125 mls/hr Q8H IV 12/01/16 23:45 12/31/16 23:44 12/03/16 11:46 125 MLS/HR Piperacillin Sod/ Tazobactam Sod/ Dextrose (Zosyn Iv/D5 100ml) 120 ml @ 30 mls/hr Q8H IV 12/02/16 03:00 12/12/16 02:59 12/03/16 11:46 30 MLS/HR Piperacillin Sod/ Tazobactam Sod (Consult) 1 ea UD PRN N/A 12/02/16 02:45 01/01/17 02:44 Hydralazine HCl (HydrALAZINE INJ) 10 mg Q8 PRN IV. 12/02/16 02:15 01/01/17 02:14 Ipratropium [place] (Atrovent 0.02% 0.5MG/2.5ML Neb) 0.5 mg Q6R INH 12/02/16 03:00 01/01/17 02:59 12/03/16 14:32 0.5 MG Levalbuterol (Xopenex 1.25MG/ 0.5ML Neb) 1.25 mg Q6R INH 12/02/16 03:00 01/01/17 02:59 12/03/16 14:32 1.25 MG Hydromorphone HCl (Dilaudid Inj) 1 mg Q2H PRN IV 12/02/16 09:15 12/16/16 09:14 12/03/16 07:37 1 MG Aspirin (Ecotrin Tab) 81 mg QAM PO 12/02/16 12:00 01/01/17 11:59 12/03/16 07:39 81 MG Atorvastatin Calcium (Lipitor Tab) 10 mg HS PO 12/02/16 21:00 01/01/17 20:59 12/02/16 21:26 10 MG Metoprolol Tartrate (Lopressor Tab) 25 mg BID PO 12/02/16 12:00 01/01/17 11:59 12/03/16 07:39 25 MG Montelukast Sodium (Singulair Tab) 10 mg PM PO 12/02/16 21:00 01/01/17 20:59 12/02/16 21:26 10 MG Pantoprazole Sodium (Protonix Tab) 40 mg QAM PO 12/02/16 12:00 01/01/17 11:59 12/03/16 07:40 40 MG Verapamil HCl (Calan-Sr Tab) 240 mg HS PO 12/02/16 21:00 01/01/17 20:59 12/02/16 21:26 240 MG Lorazepam (Ativan Tab) 1 mg Q4H PRN PO 12/02/16 20:00 01/01/17 19:59 Acetaminophen (Tylenol Tab) 650 mg Q6H PRN PO 12/02/16 20:00 01/01/17 19:59 12/03/16 16:31 650 MG Ondansetron HCl (Zofran Inj) 4 mg Q6H PRN IV 12/02/16 22:00 01/01/17 21:59 12/03/16 04:51 4 MG Levothyroxine Sodium (Synthroid Tab) 175 mcg DAILYBB PO 12/03/16 06:00 01/02/17 05:59 12/03/16 04:59 175 MCG Objective Vital Signs Date Time Temp Pulse Resp B/P Pulse Ox O2 Delivery O2 Flow Rate FiO2 12/03/16 16:29 36.6 76 18 137/75 96 Room Air 12/03/16 15:48 66 16 147/63 96 Room Air 12/03/16 15:33 65 16 139/63 96 Room Air 12/03/16 15:18 68 16 118/55 96 Room Air 12/03/16 14:44 37.4 69 24 140/69 94 Room Air 12/03/16 14:10 65 20 85 Room Air 12/03/16 12:00 Nasal Cannula 2.0 12/03/16 10:56 37.7 64 20 114/71 94 Room Air 12/03/16 08:00 Nasal Cannula 2.0 12/03/16 07:59 66 20 98 Nasal Cannula 2.0 12/03/16 07:29 37.0 72 20 147/72 96 2.0 12/03/16 05:04 Nasal Cannula 2.0 12/03/16 04:00 Nasal Cannula 2.0 12/03/16 03:31 37.0 64 20 113/61 97 Nasal Cannula 2.0 12/03/16 02:25 60 20 94 Nasal Cannula 2.0 12/03/16 00:01 97 Nasal Cannula 2.0 12/02/16 23:23 36.8 70 18 135/70 97 Room Air 12/02/16 20:00 Nasal Cannula 2.0 12/02/16 19:30 99 20 96 Nasal Cannula 2.0 12/02/16 19:03 37.0 81 22 122/68 93 Room Air Physical Exam General Appearance: WD/WN, no apparent distress Eyes: normal inspection ENT: normal ENT inspection, hearing grossly normal Neck: supple Respiratory/Chest: chest non-tender, lungs clear, normal breath sounds, no respiratory distress, no accessory muscle use Cardiovascular: regular rate, rhythm Abdomen: normal bowel sounds, non tender, soft Extremities: normal range of motion, no pedal edema Neurologic/Psychiatric: alert, normal mood/affect, oriented x 3 Skin: normal color Laboratory Results 12/03/16 06:44 Red Blood Count 4.21, Mean Corpuscular Volume 101.2, Mean Corpuscular Hemoglobin 34.0, Mean Corpuscular Hemoglobin Concent 33.6, Mean Platelet Volume 11.5, Neutrophils (%) (Auto) 77.2, Lymphocytes (%) (Auto) 9.6, Monocytes (%) ( Auto) 12.3, Eosinophils (%) (Auto) 0.2, Basophils (%) (Auto) 0.1, Neutrophils # (Auto) 12.67, Lymphocytes # (Auto) 1.58, Monocytes # (Auto) 2.03, Eosinophils # (Auto) 0.04, Basophils # (Auto) 0.02 12/03/16 06:44 Test 12/02/16 22:48 12/03/16 06:44 12/03/16 11:15 Lactic Acid Level 0.9 mmol/L (0.4-2.0) White Blood Count 16.44 K/uL (4.8-10.8) Red Blood Count 4.21 M/uL (4.7-6.1) Hemoglobin 14.3 g/dL (14.0-18.0) Hematocrit 42.6 % (42-52) Mean Corpuscular Volume 101.2 fL (80-100) Mean Corpuscular Hemoglobin 34.0 pg (25-34) Mean Corpuscular Hemoglobin Concent 33.6 g/dl (32-36) Platelet Count 148 K/uL (130-400) Mean Platelet Volume 11.5 fL (7.4-10.4) Neutrophils (%) (Auto) 77.2 % Lymphocytes (%) (Auto) 9.6 % Monocytes (%) (Auto) 12.3 % Eosinophils (%) (Auto) 0.2 % Basophils (%) (Auto) 0.1 % Neutrophils # (Auto) 12.67 K/uL (1.4-6.5) Lymphocytes # (Auto) 1.58 K/uL (1.2-3.4) Monocytes # (Auto) 2.03 K/uL (0.11-0.59) Eosinophils # (Auto) 0.04 K/uL (0-0.5) Basophils # (Auto) 0.02 K/uL (0-0.2) RDW Standard Deviation 51.8 fL (36.4-46.3) RDW Coefficient of Variation 14.1 % (11.5-14.5) Immature Granulocyte % (Auto) 0.6 % Immature Granulocyte # (Auto) 0.10 K/uL (0.00-0.02) Anion Gap 11.0 mmol/L (3-11) Est Creatinine Clear Calc Drug Dose 98.7 ml/min Estimated GFR () 102.1 Estimated GFR (Non- 88.1 BUN/Creatinine Ratio 18.0 (10-20) Calcium Level 8.3 mg/dl (8.5-10.1) Phosphorus Level 2.0 mg/dl (2.5-4.9) Magnesium Level 1.8 mg/dl (1.8-2.4) Total Bilirubin 1.4 mg/dl (0.2-1) Direct Bilirubin 0.3 mg/dl (0-0.2) Aspartate Amino Transf (AST/SGOT) 17 U/L (15-37) Alanine Aminotransferase (ALT/SGPT) 21 U/L (12-78) Alkaline Phosphatase 48 U/L (45-117) Total Protein 5.8 gm/dl (6.4-8.2) Albumin 2.9 gm/dl (3.4-5.0) Bedside Glucose 115 mg/dl (70-99) Assessment and Plan 71-year-old male with past medical history of a NSTEMI, AAA repair, CABG 2 who presented with abdominal pain, diaphoresis and dizziness yesterday. He had bright red clots per rectum while in the ER. CT abdomen and pelvis revealed colitis. Currently been managed conservatively. Colitis :Ischemic colitis status post colonoscopy - CT abdomen and pelvis: Mild wall thickening of the splenic flexure of the colon and the descending colon with mild pericolonic infiltration. The findings represent a nonspecific colitis and this distribution raises the possibility of ischemic colitis. No free air, pneumatosis or portal venous gas. - Lactic acid trended from3.3-->2.2-->1.3-->0.9 - Colonoscopy:Diverticulosis in the sigmoid colon. - Patchy moderate inflammation was found in the descending colon secondary to ischemic colitis. Biopsied. - C. difficile negative, shiga and preliminary Salmonella negative - Nothing by mouth except meds - Continue IV fluids, LR at 125 mL per hour - For pain, continue with Dilaudid 1mg q2h and Ativan q6h PRN - GI consult- appreciate input - Gen. 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 - vascular surgery consult - appreciate input DVT prophylaxis: SCDs Full code Disposition: Transferred to [facility] Continued [facility] stay due to: abnormal vital signs Reviewed: Pt Seen/Exam by Me History Pt's main concern is being hungry and wanting to d/c as it is his daughter's birthday today. Still with RLQ pain that is improving. No further bloody bowel movements. No chest pain or SOB. Agree with HPI/ROS as noted. General Appearance: WD/WN, no apparent distress Respiratory: normal breath sounds, no respiratory distress Cardiovascular: normal peripheral pulses, regular rate, rhythm Gastrointestinal: soft, distended, tenderness (RLQ) Extremities: non-tender, no pedal edema Neurologic/Psychiatric: alert, oriented x 3 Skin Characteristics: normal color, warm/dry Assessment/Plan Resident Physician Supervision Note: I discussed the case with the resident and agree with the findings and plan as documented in the note. Any exceptions or clarifications are listed here: Possible ischemic colitis, surgery is planning for conservative management at this time C-scope today Severe stenosis of prox/mid SMA noted, vasc surg does not feel this is surgical at this time ARF on admission is improving on IVF Documented By: Nae Ochoa
[2016-12-03] MEDS: ATORVASTATIN 10 MG TAB PO SCH (20:41)
[2016-12-03] MEDS: MONTELUKAST SOD 10 MG TAB PO SCH (20:41)
[2016-12-03] MEDS: VERAPAMIL HCL 240 MG TABCR PO SCH (20:42)
--- NOTE | 2016-12-03 21:54 | Progress Note ---
Post ICU Progress Note Date & Time Dec 03, 2016 at 20:40 Vital Signs Vital Signs Past 12 Hours Date Time Temp Pulse Resp B/P Pulse Ox O2 Delivery O2 Flow Rate FiO2 12/03/16 19:19 83 20 95 Room Air 12/03/16 16:29 36.6 76 18 137/75 96 Room Air 12/03/16 16:20 Room Air 12/03/16 15:48 66 16 147/63 96 Room Air 12/03/16 15:33 65 16 139/63 96 Room Air 12/03/16 15:18 68 16 118/55 96 Room Air 12/03/16 14:44 37.4 69 24 140/69 94 Room Air 12/03/16 14:10 65 20 85 Room Air 12/03/16 12:00 Nasal Cannula 2.0 12/03/16 10:56 37.7 64 20 114/71 94 Room Air Notes Mental Status: alert / awake, participated in evaluation Nausea / Vomiting: adequately controlled Pain: adequately controlled (2/10, Much Improved) Airway Patency, RR, SpO2: stable & adequate BP & HR: stable & adequate Wade Gar is 71yo male who presented to the [facility] ED for acute onset of RLQ abd pain. Upon CT in the ED patient was presumed to have a non- surgical case of ischemic colitis secondary to a low flow state. He was placed in the ICU after receiving fluid resuscitation, which continued in the ICU as well. He was seen by Dr. Maura Veliz and placed on strict bowel rest. Pt abdominal pain was well controlled by fluid resuscitation and Dilaudid. His lactic acids were trended with a negative procalcitonin. His H&H did not drop more than expected after more than 3L of fluid. The pt remained hemodynamically stable with no acute events overnight in the ICU. He did not require invasive monitors, central or arterial line access. He remained stable from a respiratory standpoint and did not require BiPap or intubation. He was moved to the 2nd floor the following afternoon. Since that time, he has been restarted on a diet. The patient states he is doing much better and tolerating his diet well. He was up and moving about the room when I entered. He stated that he has had not more blood per rectum. He did undergo colonoscopy by Dr. Hernandez on 12/03/16 at which point there was evidence of inflammation and desquamation consistent with ischemia. There was also noted diverticula present in the sigmoid. Biopsies are pending. Pt denied any complaints today and remains stable. Consider outpatient follow up in 1 to 2 weeks with: Dr. Juan Carr ( Primary Care) Repeat imaging needed: Per Dr. Hernandez/ Dr. Cordero Follow up cultures: None Reviewed progress notes, labs, and inpatient medication list Continue current management Additional recommendations: N/A Critical Care will sign off at this time. Thank you for including us in the care of this patient. Please feel free to reconsult as needed Consults & Procedures Consultants: Dr. Mary Veliz Procedures: Colonoscopy: 12/03/16
[2016-12-04] VITALS (9 sets, daily range): BP systolic 122–129; BP diastolic 68–78; PULSE 62–74; TEMP 36.4–37.1; O2SAT 94–97
[2016-12-04] MEDS: LACTATED RINGER'S 1000ML 1,000 ML IV SCH ×3 (01:01→15:45)
[2016-12-04] MEDS: HYDROmorphone INJ 1 MG/ML SYR IV PRN (01:02)
[2016-12-04] MEDS: IPRATROPIUM BROMIDE NEB SOLN 0.02% 2.5 ML VIAL INH SCH ×2 (02:19→07:18)
[2016-12-04] MEDS: PIPERACILL/TAZOBAC IV 4.5 GM in DEXTROSE 5% 100ML 100 ML IV SCH ×2 (02:20→12:20)
[2016-12-04] MEDS: LEVALBUTEROL 1.25MG/0.5ML NEB INH SCH ×2 (02:20→07:18)
[2016-12-04] MEDS: LEVOTHYROXINE 175 MCG TAB PO SCH ×2 (06:12→07:11)
[2016-12-04 07:11] LABS: BASO % 0.3 %; BASO ABS # 0.03 K/uL (0-0.2); COMPLETE YES; EOS % 1.9 %; HEMATOCRIT 41.7 % (42-52); IG% 0.4 %; LYMPH % 16.6 %; LYMPH ABS # 1.79 K/uL (1.2-3.4); MEAN CELL VOLUME 98.1 fL (80-100); MEAN CORPUSCULAR HEMOGLOBIN 33.2 pg (25-34); MEAN CORPUSCULAR HGB CONC 33.8 g/dl (32-36); MONO % 13.5 %; NEUT % 67.3 %; PLATELET COUNT 157 K/uL (130-400); RED BLOOD COUNT 4.25 M/uL (4.7-6.1); WHITE BLOOD COUNT 10.77 K/uL (4.8-10.8)
[2016-12-04 07:55] LABS: BUN/CREATININE RATIO 12.1 (10-20); CALCIUM 8.4 mg/dl (8.5-10.1); CREATININE 0.86 mg/dl (0.60-1.40); MAGNESIUM 2.2 mg/dl (1.8-2.4); PHOSPHORUS 2.7 mg/dl (2.5-4.9); POTASSIUM 3.6 mmol/L (3.5-5.1)
[2016-12-04] MEDS: PANTOprazole SOD 40 MG TAB PO SCH (08:30)
[2016-12-04] MEDS: METOPROLOL TARTRATE 25 MG TAB PO SCH (08:30)
[2016-12-04] MEDS: ASPIRIN 81 MG ECTAB PO SCH (08:30)
--- NOTE | 2016-12-04 10:54 | Surgery Progress Note ---
Surgery Progress Note Date of Service Dec 04, 2016. Subjective + feeling well best he has felt. denies any abdominal pain at this time tolerating diet Objective Vital Signs: Date Time Temp Pulse Resp B/P Pulse Ox O2 Delivery O2 Flow Rate FiO2 12/04/16 07:30 36.5 65 20 129/78 95 12/04/16 07:18 62 18 97 Room Air 12/04/16 02:20 63 18 94 Room Air 12/04/16 00:39 37.1 62 16 125/68 94 Room Air 12/04/16 00:30 94 Room Air 12/03/16 19:19 83 20 95 Room Air 12/03/16 16:29 36.6 76 18 137/75 96 Room Air 12/03/16 16:20 Room Air 12/03/16 15:48 66 16 147/63 96 Room Air 12/03/16 15:33 65 16 139/63 96 Room Air 12/03/16 15:18 68 16 118/55 96 Room Air 12/03/16 14:44 37.4 69 24 140/69 94 Room Air 12/03/16 14:10 65 20 85 Room Air 12/03/16 12:00 Nasal Cannula 2.0 12/03/16 10:56 37.7 64 20 114/71 94 Room Air General Appearance: no apparent distress Head: normocephalic, atraumatic Neck: supple Respiratory/Chest: no respiratory distress, no accessory muscle use Abdomen: non tender, non distended, soft Extremities: non-tender Laboratory Results: Results Past 24 Hours Test 12/03/16 11:15 12/04/16 06:55 Range/Units Bedside Glucose 115 70-99 mg/dl White Blood Count 10.77 4.8-10.8 K/uL Red Blood Count 4.25 4.7-6.1 M/uL Hemoglobin 14.1 14.0-18.0 g/dL Hematocrit 41.7 42-52 % Mean Corpuscular Volume 98.1 80-100 fL Mean Corpuscular Hemoglobin 33.2 25-34 pg Mean Corpuscular Hemoglobin Concent 33.8 32-36 g/dl Platelet Count 157 130-400 K/uL Mean Platelet Volume 11.0 7.4-10.4 fL Neutrophils (%) (Auto) 67.3 % Lymphocytes (%) (Auto) 16.6 % Monocytes (%) (Auto) 13.5 % Eosinophils (%) (Auto) 1.9 % Basophils (%) (Auto) 0.3 % Neutrophils # (Auto) 7.25 1.4-6.5 K/uL Lymphocytes # (Auto) 1.79 1.2-3.4 K/uL Monocytes # (Auto) 1.45 0.11-0.59 K/uL Eosinophils # (Auto) 0.21 0-0.5 K/uL Basophils # (Auto) 0.03 0-0.2 K/uL RDW Standard Deviation 49.0 36.4-46.3 fL RDW Coefficient of Variation 13.7 11.5-14.5 % Immature Granulocyte % (Auto) 0.4 % Immature Granulocyte # (Auto) 0.04 0.00-0.02 K/uL Sodium Level 141 136-145 mmol/L Potassium Level 3.6 3.5-5.1 mmol/L Chloride Level 106 98-107 mmol/L Carbon Dioxide Level 27 21-32 mmol/L Anion Gap 8.0 3-11 mmol/L Blood Urea Nitrogen 10 7-18 mg/dl Creatinine 0.86 0.60-1.40 mg/dl Est Creatinine Clear Calc Drug Dose 99.9 ml/min Estimated GFR () 102.5 Estimated GFR (Non- 88.5 BUN/Creatinine Ratio 12.1 10-20 Random Glucose 119 70-99 mg/dl Calcium Level 8.4 8.5-10.1 mg/dl Phosphorus Level 2.7 2.5-4.9 mg/dl Magnesium Level 2.2 1.8-2.4 mg/dl Total Bilirubin 0.9 0.2-1 mg/dl Direct Bilirubin 0.3 0-0.2 mg/dl Aspartate Amino Transf (AST/SGOT) 22 15-37 U/L Alanine Aminotransferase (ALT/SGPT) 29 12-78 U/L Alkaline Phosphatase 52 45-117 U/L Total Protein 6.2 6.4-8.2 gm/dl Albumin 2.9 3.4-5.0 gm/dl Assessment & Plan colonoscopy results reviewed/path pending clinically doing very well does not appear to have any surgical intervention at this time ok to advance diet/ discharge from my perspective will sign off/call if needed
--- NOTE | 2016-12-04 11:26 | PROGRESS NOTE ---
DATE: 12/04/2016 DATE: 12/04/2016. REASON FOR EVALUATION: Ischemic colitis. HISTORY OF PRESENT ILLNESS: The patient is a 71-year-old who underwent a left-sided colonoscopy yesterday. He was found to have ischemic changes in the mucosa in the descending area which were biopsied. These are pending at this time. The patient today reports he tolerated full liquids yesterday without any difficulty. He moved his bowels this morning which were soft and without any visible blood. He has had no abdominal pain, no fever, no night sweats. IMPRESSION: The patient has what appears to be ischemic colitis. According to the vascular surgeon there is nothing that needs to be addressed surgically, although he does have evidence of vascular disease. Plan on advancing his diet today to a low fiber diet and I would recommend staying on this for at least the next 2 weeks until his colon mucosa has a chance to heal. At this point there is no other intervention and I think that is necessary for his ischemic bowel.
[2016-12-04] MEDS ORDERED: IPRATROPIUM BROMIDE NEB SOLN 0.02% 2.5 ML VIAL INH PRN (14:15)
[2016-12-04] MEDS ORDERED: LEVALBUTEROL 1.25MG/0.5ML NEB INH PRN (14:15)
[2016-12-04] MEDS ORDERED: ZYR10 PO (14:58)
--- NOTE | 2016-12-04 15:00 | Discharge Instructions ---
Discharge Instructions Date of Service Dec 04, 2016. Admission Reason for Admission: Ischemic Colitis Discharge Discharge Diagnosis / Problem: Ischemic colitis Discharge Goals Goal(s): Decrease discomfort, Improve function, Increase independence Activity Recommendations Activity Limitations: resume your previous activity . Instructions / Follow-Up Instructions / Follow-Up Dr. Carr in 1-2 weeks The book I discussed with your is "Program for Reversing Heart Disease" by Dr. Matt Emmanuel. The other book is "Preventing and Reversing Heart Disease" by Moise Gillette, PhD. Current Hospital Diet Patient's current hospital diet: Low Fiber Diet Discharge Diet Recommended Diet: Low Fiber Diet, Low Fat Diet, Low Lactose Diet Procedures Procedures Performed: COLONOSCOPY, BX Pending Studies Studies pending at discharge: yes List of pending studies: Biopsy from colonoscopy Laboratory Results Hemoglobin A1c Test 12/02/16 05:47 Range/Units Estimated Average Glucose 148 mg/dl Hemoglobin A1c 6.8 H 4.5-5.6 % Medical Emergencies . Who to Call and When: Medical Emergencies: If at any time you feel your situation is an emergency, please call 911 immediately. . Non-Emergent Contact Non-Emergency issues call your: Primary Care Provider . . "Provider Documentation" section prepared by Nae Ochoa. VTE Core Measure Inpt VTE Proph given/why not?: Contraindicated
--- NOTE | 2016-12-04 15:22 | Discharge Summary ---
Discharge Summary Date of Service Dec 04, 2016. Discharge Summary Admission Date: Dec 01, 2016 at 21:55 Discharge Date: Dec 04, 2016 Discharge Disposition: Home Principal Diagnosis: Ischemic colitis Problems/Secondary Diagnoses: Severe stenosis of proximal/mid SMA HTN s/p AAA repair s/p CABG, NSTEMI GERD Hypothyroid Hyperlipidemia Immunizations: Have You Had Influenza Vaccine: Yes Influenza Vaccine Date: Jun 19, 2012 History of Tetanus Vaccine?: Yes History of Pneumococcal: Yes Pneumococcal Date: Mar 19, 2008 History of Hepatitis B Vaccine: Yes Hepatitis Immunization Date: Nov 30, 1967 Procedures: c-scope 12/03 Consultations: Dr. Hernandez (GI) Dr. Veliz (gen surg) Dr. Cordero (vasc surg) Medication Reconciliation New Medications: Ciprofloxacin (Ciprofloxacin HCl) 500 Mg Tab 1 TAB PO DAILY for 10 Days Metronidazole (Metronidazole) 500 Mg Tab 500 MG PO TID for 10 Days Cetirizine HCl (All Day Allergy) 10 Mg Tab 10 MG PO QAM for 30 Days, #30 TAB Continued Medications: Aspirin (Aspirin Ec) 81 Mg Tab 81 MG PO DAILY Atorvastatin (Atorvastatin Calcium) 10 Mg Tab 10 MG PO DAILY, #90 Azelastine Hcl (Astelin Nasal [place]) 200 Sprays/30 Ml [place] 2 SPRAYS MICHELLE DAILY, #90 Benazepril Hcl (Benazepril Hcl) 5 Mg Tab 5 MG PO DAILY, #90 Diclofenac Sod (Diclofenac Sodium Dr) 75 Mg Tabcr 75 MG PO BID, #60 Ergocalciferol (Vitamin D) 50,000 Interunit Cap 41837 UNITS PO WK Fluticasone Furoate-Vilanterol (Breo Ellipta 200-25 Mcg/INH) 1 Inh Inh 1 PUFF INH DAILY, #60 Levalbuterol (Levalbuterol HCl) 1.25 Mg/3 Ml Nebu 1 DOSE INH PRN UD, #144 Levothyroxine Sodium (Levothyroxine Sodium) 175 Mcg Tab 175 MCG PO DAILY Metoprolol Tartrate (Lopressor) (Lopressor) 25 Mg Tab 25 MG PO BID, TAB Montelukast Sod (Montelukast Sodium) 10 Mg Tab 10 MG PO DAILY Omeprazole (Prilosec) 10 Mg Capcr 10 MG PO DAILY, CAP Tramadol Hcl (Ultram) 50 Mg Tab 50 MG PO BID PRN for Pain, #60 Verapamil Hcl (Verapamil Hcl Er) 240 Mg Cap 240 MG PO QPM, #30 [Proair] () 2 PUFF INH Q4 PRN for SOB/Wheezing Discharge Exam Pt is doing quite well today. No abd pain today. He has not passed further bloody stools. He tolerated liquid diet, as well as low fiber diet for lunch. Pt denies fever, SOB, chest pain, n/v/c/d, LE pain or swelling. ROS as noted above, otherwise neg. Physical Exam: General Appearance: WD/WN, no apparent distress Respiratory/Chest: normal breath sounds, no respiratory distress Cardiovascular: regular rate, rhythm, no edema Abdomen / GI: non tender, soft, + distended (improved) Extremities: no calf tenderness, no pedal edema Neurologic/Psychiatric: alert, normal mood/affect Skin: normal color, warm/dry Hospital Course 71-year-old male with past medical history of a NSTEMI, AAA repair, CABG 2 who presented with abdominal pain, diaphoresis and dizziness yesterday. He had bright red clots per rectum while in the ER. CT abdomen and pelvis revealed colitis. Colitis :Ischemic colitis that has resolved with conservative management - CT abdomen and pelvis: Mild wall thickening of the splenic flexure of the colon and the descending colon with mild pericolonic infiltration. The findings represent a nonspecific colitis and this distribution raises the possibility of ischemic colitis. No free air, pneumatosis or portal venous gas. - Lactic acid trended from3.3-->2.2-->1.3-->0.9 - Colonoscopy:Diverticulosis in the sigmoid colon. - Patchy moderate inflammation was found in the descending colon secondary to ischemic colitis. Biopsied. - C. difficile negative, shiga and preliminary Salmonella negative Pt seen by both GI and Gen. surgery, feel pt has improved with conservative management Pt tolerated advancing diet, advised low fiber diet x2 weeks with slow advancement after that time Very little evidence to suggest empiric abx use in ischemic colitis. I did provide pt with rx as above to fill if pain returns. Acute renal failure: POA and resolved with IVF Ischemic heart disease - Continue aspirin 81 mg daily - Continue metoprolol 25 mg twice a day - Continue atorvastatin 10 mg daily - Continue verapamil - discussed smoking cessation and dietary changes (decrease animal protein, increase fresh fruits and vegetables) with COPD Extensive smoking history - Continue home medications Hypothyroidism: Continue Synthroid SMA stenosis: - CT A abdomen and pelvis :Patent proximal celiac axis with focal severe stenosis of the proximal to mid superior mesenteric artery. Pt seen by vascular surgery--they advise monitoring for now given pt does not have pain related to SMA stenosis. It is felt that intervention would likely require an open surgery due to location and would not advise if pt remains asx Total Time Spent: Greater than 30 minutes This includes examination of the patient, discharge planning, medication reconciliation, and communication with other providers. Discharge Instructions Please refer to the electronic Patient Visit Report (Discharge Instructions) for additional information. Follow-Up Dr. Carr in 1-2 weeks Additional Copies To Juan Carr, DO
[2016-12-04] MEDS ORDERED: CPR500 PO (15:33)
[2016-12-04] MEDS ORDERED: MTR500 PO (15:33)
[2016-12-04] MEDS ORDERED: IPRATROPIUM BROMIDE HFA INHALER INH SCH (18:00)
[2016-12-04] MEDS ORDERED: LEValbuterol HFA 15GM INHALER INH SCH (18:00)
[2016-12-05] MEDS ORDERED: CETIRIZINE HCL 10 MG TAB PO SCH (09:00)
== END 2016-12-04 17:12 | disposition home or self-care (01) | DRG 394 ==
LOC: ENRESERVTM → ENRESERVDT → EDBD 18:51 → C.EDA 18:52 → C.MSICU 21:55 → C.2T 12-02 14:52 → C.MS2W 12-03 16:14
PROVIDERS: ADMIT Internal Medicine; ATTEND Family Medicine
PROC: 0DBM8ZX Excision of Descending Colon, Via Natural or Artificial Opening Endoscopic, Diagnostic (ICD-10-PCS; principal; 2016-12-03 14:35)
DX: K55.9 Vascular disorder of intestine, unspecified (principal); K92.2 Gastrointestinal hemorrhage, unspecified; N17.9 Acute kidney failure, unspecified; D72.829 Elevated white blood cell count, unspecified; E66.9 Obesity, unspecified; E03.9 Hypothyroidism, unspecified; J44.9 Chronic obstructive pulmonary disease, unspecified; I25.10 Atherosclerotic heart disease of native coronary artery without angina pectoris; K21.9 Gastro-esophageal reflux disease without esophagitis; K46.9 Unspecified abdominal hernia without obstruction or gangrene; Z95.1 Presence of aortocoronary bypass graft; E55.9 Vitamin D deficiency, unspecified; Z79.82 Long term (current) use of aspirin; K55.1 Chronic vascular disorders of intestine; I25.2 Old myocardial infarction; E78.5 Hyperlipidemia, unspecified; I25.9 Chronic ischemic heart disease, unspecified; F17.210 Nicotine dependence, cigarettes, uncomplicated; I10 Essential (primary) hypertension; K57.30 Diverticulosis of large intestine without perforation or abscess without bleeding

== ENCOUNTER 2017-03-04 07:17 | Day surgery (SDC) | payer OTHER ==
[~2017-03-04] VITALS: Ht 180.3 cm; Wt 100.0 kg
--- NOTE | 2017-03-04 06:15 | History and Physical ---
History & Physical Date Mar 04, 2017. Chief Complaint Bilateral claudication History of Present Illness The patient is a 71 year old male who was seen regarding his peripheral arterial disease. He also has other vascular issues including having previously undergone an open abdominal aortic aneurysm repair back in the year 1999. This was performed at [facility]. The patient states that he usually follows with Dr. Roge castro at [place]; however, due to the significant driving required for that, he would prefer to have his regular vascular visits here because it is closer for him. The patient states that over the past few years, he has noticed increasing discomfort in his bilateral calves, which develops after walking approximately 100 steps. He states that if he tries to walk another steps or so, he has to stop. This is noticeable for him pretty regularly, as he is required to walk long distances across airports to go from 1 flight to another, as he travels quite a bit for his appointment. The patient denies having had prior arterial work done in his lower extremities. The patient's most recent duplex imaging of his lower extremities was in November 2016 and demonstrates occlusion of his right SFA with monophasic flow distal to that lesion and a right GEOVANNI of 0.66. His left leg demonstrates proximal and mid SFA artery occlusion with monophasic flow distal to that lesion as well and an occluded left anterior tibial artery with a left GEOVANNI of 0.62. Allergies Coded Allergies: Amoxicillin (Verified Adverse Reaction, Unknown, UPSET STOMACH, 09/03/15) Clavulanic Acid (Verified Adverse Reaction, Unknown, UPSET STOMACH, ) Home Medications Scheduled Aspirin (Aspirin Ec), 81 MG PO DAILY Atorvastatin (Atorvastatin Calcium), 10 MG PO DAILY Azelastine Hcl (Astelin Nasal [place]), 2 SPRAYS MICHELLE DAILY Benazepril Hcl (Benazepril Hcl), 5 MG PO DAILY Cetirizine HCl (All Day Allergy), 10 MG PO QAM Ciprofloxacin (Ciprofloxacin HCl), 1 TAB PO DAILY Diclofenac Sod (Diclofenac Sodium Dr), 75 MG PO BID Ergocalciferol (Vitamin D), 50,000 UNITS PO WK Fluticasone Furoate-Vilanterol (Breo Ellipta 200-25 Mcg/INH), 1 PUFF INH DAILY Levalbuterol (Levalbuterol HCl), 1 DOSE INH PRN UD Levothyroxine Sodium (Levothyroxine Sodium), 175 MCG PO DAILY Metoprolol Tartrate (Lopressor) (Lopressor), 25 MG PO BID Metronidazole (Metronidazole), 500 MG PO TID Montelukast Sod (Montelukast Sodium), 10 MG PO DAILY Omeprazole (Prilosec), 10 MG PO DAILY Verapamil Hcl (Verapamil Hcl Er), 240 MG PO QPM Scheduled PRN Tramadol Hcl (Ultram), 50 MG PO BID PRN for Pain [Proair], 2 PUFF INH Q4 PRN for SOB/Wheezing Problem List Medical Problems: (1) Abdominal pain (2) NURIA (acute kidney injury) (3) Bronchitis (4) CAD (coronary artery disease) (5) Chest pain of uncertain etiology (6) COPD (chronic obstructive pulmonary disease) (7) Diverticulosis Colon (W/O Ment Of Hemorrhage) (8) Easy bruisability (9) Elevated troponin I level (10) GERD (gastroesophageal reflux disease) (11) Hypertension Nos (12) Hypothyroid (13) Obesity (14) Tobacco abuse Surgical Problems: (1) Hx of CABG (2) S/P AAA repair Surgical / Medical History Hx Cardiac Surgery: Yes (cabg) Hx Abdominal Surgery: Yes (aaa repair) Hx Cancer Surgery: No Hx Thoracic Surgery: No Hx Orthopedic: No Hx Urinary Tract Surgery: No Past Medical/Surgical History: ASHD, Heart Disease, Hypertension, Kidney Disease Family History No pertinent family history Social History Smoking Status: Current Every Day Smoker Hx Tobacco Use In Past Year?: Yes (10 cigars daily) Hx Substance Use -Type & Amnt: Yes (Dilaudid IV for pain management.) Review of Systems Skin: No change in color, No change in hair/nails, No dryness, No lesions, No lumps, No rash, No abnormal mole, No problem reported Respiratory: No cough, No cyanosis, No FLOYD, No hemoptysis, No orthopnea, No PND , No short of breath, No sputum production, No stridor, No wheezing, No dyspnea , No problem reported Cardiovascular: No chest pain, No chest tightness, No chest pressure, No palpitations, No syncope, No diaphoresis, No edema, No intermittent claudication , No orthopnea, No cyanosis, No mumur, No lightheadedness, No paroxysmal nocturnal dyspnea, No problem reported Gastrointestinal: No abdominal pain, No constipation, No diarrhea, No nausea, No vomiting, No anorexia, No appetite changes, No belching, No flatulence, No food intolerance, No hematemesis, No hemorrhoids, No hematochezia, No stool changes, No heartburn, No indigestion, No dysphagia, No rectal bleeding, No problem reported Musculoskeletal: No back pain, No gout, No joint pain, No joint swelling, No muscle pain, No muscle stiffness, No muscle weakness, No neck pain, No problem reported Neurologic: No dizziness, No weakness, No headache, No lethargy, No numbness, No paresthesia, No pre-existing deficit, No seizures, No tics, No tingling, No tremors, No vertigo, No memory loss, No LOC, No problem reported Psychiatric: No anxiety, No alcohol abuse, No auditory hallucinations, No depression, No drug abuse, No homicidal ideation, No mood changes, No suicidal ideation, No visual hallucinations, No problem reported Physical Exam Constitutional: General Apperance: heathly-appearing, well-nourished, well-developed Level of Distress: NAD Ambulation: ambulating normally Psychiatric: Mental Status: active & alert, normal mood, normal affect Orientation: oriented except where noted, to time, to place, to person Memory: recent memory normal, remote memory normal Head: normocephalic Neck: supple Lungs: Auscultation: breath sounds normal Cardiovascular: Heart Auscultation: RRR Peripheral Pulses: Radial Pulse: normal on the left, normal on the right Femoral Pulse: normal on the left, normal on the right Posterior Tibialis Pulse: absent on the left, absent on the right Dorsalis Pedis Pulse: absent on the left, absent on the right Abdomen: Inspection & Palpation: soft Musculoskeletal: normal Extremities: Upper Right: no cyanosis, no edema, no varicosities, no palpable cord, no clubbing, no ulcers, no mottling Upper Left: no cyanosis, no edema, no varicosities, no palpable cord, no clubbing, no ulcers, no mottling Lower Right: no cyanosis, no edema, no varicosities, no palpable cord, no clubbing, no ulcers, no mottling Lower Left: no cyanosis, no edema, no varicosities, no palpable cord, no clubbing, no ulcers, no mottling Neurologic: Cranial Nerves: grossly intact Sensation: grossly intact Assessment and Plan Imp: Bilateral superficial femoral artery occlusion Plan: Patient is admitted for arteriography with possible intervention. I have discussed the risks options and benefits of the procedure with the patient. The patient understands the risks options and benefits and agrees to the procedure.
[~2017-03-04 07:17] MED LIST changes: +ASTN NAE; -ATOR10TA88 PO; -AZEL0.15; -BENA20TA14 PO; +BENA5TAB5 PO; +CLINDAMYCIN 600 MG/54 ML D5W IV SCH; +CPR500 PO; -FLUT0.0529 NAE; +FLUT1INH7 INH; +LEVO175T3 PO; +LPT10 PO; +MTR500 PO; +PROAIR INH; +SNG10 PO; +SODIUM CHLORIDE 0.9% 1000ML IV SCH; -SYMIN160 INH; -TRAM-10 PO; +ULT/50 PO; +VERA240C2 PO; +VLT/75 PO; -VRPSR240 PO; +VTMD PO; +XPNINS125 INH; +ZYR10 PO
--- NOTE | 2017-03-04 07:53 | History & Physical Bridge Note ---
H&P Re-Evaluation Bridge Note: I have examined the patient, reviewed the History & Physical and in the interval since the performance of the History & Physical I have noted the following changes of clinical significance: No changes noted
--- NOTE | 2017-03-04 07:54 | Procedure Note ---
Pre-Mod Sedation Assessment General Date of Moderate Sedation: Mar 04, 2017. Pre-Sedation Airway Assessment Smoking Status: Current Every Day Smoker Mallampati Classification: Class I ASA Classification: Class III Notes The planned sedation has been discussed with the patient and consent obtained. I have identified the patient, determined the appropriateness of sedation and have assessed the patient immediately prior to the procedure. All medicine(s) and interventions are by my order.
[2017-03-04] MEDS ORDERED: CETI10CA PO (08:44)
[2017-03-04] MEDS ORDERED: LEVO200T6 PO (08:44)
[2017-03-04] MEDS ORDERED: FLUT0.15 (08:44)
[2017-03-04] MEDS ORDERED: SITA50TA PO (08:44)
[2017-03-04 08:46] VITALS: BP 115/52; PULSE 51; TEMP 37; O2SAT 95; Ht 180.3 cm; Wt 100.0 kg
[2017-03-04 09:49] VITALS: BP 115/52; PULSE 51; TEMP 37; O2SAT 95
[2017-03-04] MEDS ORDERED: MIDAZOLAM HCL 1 MG/ML 2ML VIAL ONE ×2 (09:50→10:48)
[2017-03-04] MEDS ORDERED: HEPARIN SOD (PORCINE) 1000 UNIT/ML 10 ML VIAL ONE (09:50)
[2017-03-04] MEDS ORDERED: FENTANYL CITRATE INJ 50 MCG/1 ML 2 ML VIAL ONE (09:50)
[2017-03-04] MEDS ORDERED: ONDANSETRON INJ 2 MG/ML 2 ML VIAL IV PRN (10:15)
[2017-03-04] MEDS ORDERED: OXYCODONE/ACETAMINOPHEN 5-325 TAB PO PRN (10:15)
[2017-03-04] MEDS ORDERED: LIDOCAINE HCL 1% 20 ML VIAL INFIL ONE (10:19)
[2017-03-04] MEDS ORDERED: MIDAZOLAM HCL 1 MG/ML 2ML VIAL IV ONE ×2 (10:21→10:41)
[2017-03-04] MEDS ORDERED: FENTANYL CITRATE INJ 50 MCG/1 ML 2 ML VIAL IV ONE ×2 (10:22→11:02)
[2017-03-04] MEDS ORDERED: IODIXANOL (VISIPAQUE) 270 MG/ML 150ML IV ONE (11:04)
--- NOTE | 2017-03-04 11:08 | Procedure Note ---
Post-Moderate Sedation Plan General Date of Moderate Sedation Mar 04, 2017. Vital Signs: Vital Signs Past 12 Hours Date Time Temp Pulse Resp B/P (MAP) Pulse Ox O2 Delivery O2 Flow Rate FiO2 03/04/17 09:49 37.0 51 20 115/52 95 Room Air 03/04/17 08:46 37 51 20 115/52 (73) 95 Room Air Review - Discharge Plan Post Moderate Sedation Plan: On clinical assessment, the patient appears to have tolerated the conscious sedation without complications. Patient is recovering as anticipated. Patient will continue to be monitored by nursing and may be discharged when conscious sedation discharge criteria are met.
--- NOTE | 2017-03-04 11:10 | [facility] Post Operative Brief Note ---
Immediate Operative Summary Operative Date Mar 04, 2017. Pre-Operative Diagnosis Bilateral superficial femoral artery occlusion Post-Operative Diagnosis Same Procedure(s) Performed Left Leg Angiogram Moderate Sedation [id number] Surgeon Consuelo Mangle Roller Surgeon(s) Emily Hernandez MD Estimated Blood Loss 30 Findings complete sfao and severe infrapopliteal occlusive disease Specimens None Anesthesia Local with sedation Complication(s) None Disposition
--- NOTE | 2017-03-04 11:11 | Discharge Instructions ---
Discharge Instructions Date of Service Mar 04, 2017. Visit Reason for Visit: Left Lower Extremity Peripheral Artery Disease Discharge Discharge Diagnosis / Problem: Left superficial femoral artery occlusion with claudication Discharge Goals Goal(s): Diagnostic testing Activity Recommendations Activity Limitations: per Instructions/Follow-up section Anesthesia . Post Anesthesia Instructions: If you have had General Anesthesia or IV Sedation: * Do not drive today. * Resume driving when surgeon permits. * Do not make important decisions or sign legal documents today. * Call surgeon for: 1. Temperature elevations greater than 101 degrees F. 2. Uncontrollable pain. 3. Excessive bleeding. 4. Persistent nausea and vomiting. 5. Medication intolerance (nausea, vomiting or rash). * For nausea and vomiting use only clear liquids such as: tea, soda, bouillon until nausea subsides, then gradually increase diet as tolerated. * If you have any concerns or questions, call your surgeon's office. If physician is unavailable and it is an emergency, call 911 or go to the nearest emergency room. . Instructions / Follow-Up Instructions / Follow-Up Call [phone] to schedule a follow up appointment if one not already scheduled. SPECIAL CARE INSTRUCTIONS: Medications: * Continue to take your medications as directed. If you have been given a prescription for Plavix, please fill it immediately and take as directed. Incision Care: * Your puncture site may have some bruising and minor swelling for about one week. * You will have a small dressing covering your puncture site. You may remove the dressing after 24 hours and shower. You may let the warm soapy water run over it, but be sure to dry the puncture site well and keep it dry. * DO NOT IMMERSE THE INCISION IN A TUB/POOL/etc. UNTIL HEALED. * Puncture sites should be kept covered with a band-aid until it begins to heal. Restrictions: * Depending on whether you leg or arm was punctured to access the arteries, you will be required to lay flat, hold your arm still, or both, for about 4 hours after the procedure to prevent bleeding. * Limit your activity for the first 48 hours. You may walk and go up and down steps. Avoid excessive bending or movement at the puncture site. Possible Complications: * Excessive Swelling - after blood flow is improved you may notice increased swelling in the lower legs. This is a normal response. This usually depends on the amount of blockages in the leg, how long they have been there prior to your procedure and how much blood flow was restored. Elevating your legs will help to improve this. Please notify our office ([phone] ) if the swelling does not go away after lying in bed overnight. * Infection/Drainage/Bleeding - Drainage or bleeding from the puncture site should be minimal. If you have excessive bleeding or drainage, call our office ([phone]) right away. * Pain - You may experience some mild pain or soreness at your puncture site. If your pain does not improve, please contact our office ([phone]). Call your doctor and seek emergent treatment if you develop: * Temperature above 101 degrees * Any fever or chills * Any redness or purulent drainage from the puncture site * Any new dusky/blue colored toes or feet with coolness or sharp or aching pain. SKIN IRRITATION: * You may experience some redness and/or swelling in the area where radiation was administered. If any skin irritation occurs, please contact your family physician. FOLLOW UP VISIT: Keep any scheduled doctor appointments. Diet Recommendations Recommended Home Diet: resume previous diet Procedures Procedures Performed: Left Leg Angiogram Moderate Sedation [id number] Pending Studies Studies pending at discharge: no Medical Emergencies . Who to Call and When: Medical Emergencies: If at any time you feel your situation is an emergency, please call 911 immediately. . Non-Emergent Contact Non-Emergency issues call your: Surgeon . . "Provider Documentation" section prepared by Jose Alberto Cordero. .
[2017-03-04 11:15] VITALS: BP 106/52; PULSE 46; TEMP 36.7; O2SAT 96
[2017-03-04 11:45] VITALS: BP 111/55; PULSE 47; TEMP 36.7; O2SAT 96
[2017-03-04 12:15] VITALS: BP 108/61; PULSE 48; TEMP 36.7; O2SAT 97
[2017-03-04 12:45] VITALS: BP 107/63; PULSE 61; TEMP 36.7; O2SAT 97
--- NOTE | 2017-03-04 13:00 | DIAGNOSTIC IMAGING REPORT ---
DATE OF PROCEDURE: 03/04/2017 PREOPERATIVE DIAGNOSIS: Left lower extremity claudication. POSTOPERATIVE DIAGNOSIS: Left lower extremity claudication. PROCEDURE: Conscious sedation 46 minutes, diagnostic left lower extremity angiogram. SURGEON: Dr. Jose Alberto Cordero. POWER GENERATION ENGINEER: Dr. Emily Hernandez. ANESTHESIA: Sedation plus local. ESTIMATED BLOOD LOSS: 30 mL. COMPLICATIONS: None. CONDITION: Stable. INDICATIONS: Mr. Wade Gar is a 71-year-old gentleman with a history of coronary artery disease, COPD, diverticulosis, GERD, hypertension, hypothyroidism, obesity who previously underwent an open abdominal aortic aneurysm repair [place] [address] Monterroso. He presented with bilateral lower extremity claudication with walking long distances. Duplex imaging of his lower extremity showed a right SFA occlusion and monophasic flow distal to that lesion with a right GEOVANNI of 0.66. The left leg had a long segment SFA occlusion with monophasic flow distal to the lesion occluded left anterior tibial artery with an GEOVANNI of 0.62. For this reason, he was recommended to undergo a left lower extremity angiogram. The risks, benefits and alternatives were discussed with the patient and he consented to the procedure. DESCRIPTION OF PROCEDURE: The patient was taken to the [facility] OR and placed in the supine position. His bilateral groins were prepped and draped in the usual sterile fashion. A safety timeout was performed and the patient, procedure, and side was correctly identified. The patient was given conscious sedation. Local anesthesia was used to anesthetize the skin overlying the right femoral artery. Ultrasound was used to access the right common femoral artery. There was difficulty in passing the mandrel wire. An 0.035 Glidewire was passed through the needle and into the right common iliac. A 5-Tristanian sheath was attempted to be placed into the right common femoral artery, but was unsuccessful. This was removed and manual pressure was held for approximately 5 minutes with good hemostasis. A second attempt at accessing the right common femoral was achieved with an 18-gauge access needle. A 0.035 Glidewire easily passed into the abdominal aorta. A 5-Tristanian sheath was then placed into the right common femoral artery. Rim catheter was placed over the 0.035 Glidewire and used to get up and over the bifurcation. The rim catheter was placed into the left limb of the aortobifemoral graft. The left lower extremity angiogram was obtained. This showed a long segment occlusion of the SFA. The above knee popliteal reconstituted as well which was continuous with the below-knee popliteal and perineal was the main runoff to the foot with reconstitution of the AT at the level of the ankle. Given that this was a long segment occlusion and that the patient's symptoms were only claudication, we elected not to pursue any intervention. The rim catheter was removed. A guidewire was placed through the right 5-Tristanian femoral sheath and a Perclose deployed in the right common femoral artery. This was secured down with good hemostasis. Manual pressure was held for approximately 5 minutes. Sterile dressing was applied. The patient tolerated the procedure well and there were no immediate complications. Dr. Jose Alberto Cordero was present for the entire procedure. I, Dr. Cordero was present and scrubed for the entire procedure. FLAQUITOD
== END 2017-03-04 13:10 | disposition home or self-care (01) ==
LOC: C.ACU 07:17
PROVIDERS: ATTEND Surgery Vascular Surgery
DX: I73.9 Peripheral vascular disease, unspecified (principal); Z79.82 Long term (current) use of aspirin; I25.10 Atherosclerotic heart disease of native coronary artery without angina pectoris; J44.9 Chronic obstructive pulmonary disease, unspecified; K21.9 Gastro-esophageal reflux disease without esophagitis; I10 Essential (primary) hypertension; E03.9 Hypothyroidism, unspecified; E66.9 Obesity, unspecified; Z98.61 Coronary angioplasty status; F17.200 Nicotine dependence, unspecified, uncomplicated; N28.9 Disorder of kidney and ureter, unspecified

== ENCOUNTER → 2017-06-09 | Outpatient (CLI) | payer OTHER ==
[~2017-06-09] MED LIST changes: +CETI10CA PO; -CLINDAMYCIN 600 MG/54 ML D5W IV SCH; -CPR500 PO; +FLUT0.15; -LEVO175T3 PO; +LEVO200T6 PO; -MTR500 PO; +SITA50TA PO; -SNG10 PO; -SODIUM CHLORIDE 0.9% 1000ML IV SCH; -ZYR10 PO
--- NOTE | 2017-06-13 09:19 | PULMONARY FUNCTION TEST ---
CLINICAL DATA: 71-year-old male with a height of 72 inches and a weight of [address] Juan Carr for evaluation of COPD. Spirometry pre- and post-bronchodilator were performed. FINDINGS: Pre-bronchodilator spirometry demonstrates moderate obstructive airways disease. FVC was 71% of predicted. FEV1 was 60% of predicted. [id number] was 35% of predicted. There was no improvement after inhaled bronchodilator. IMPRESSION: Moderate obstructive airways disease with no significant improvement after inhaled bronchodilator. MTDD
== END | disposition home or self-care (01) ==
LOC: C.RC 09:25
PROVIDERS: ATTEND Family Medicine
DX: R06.02 Shortness of breath (principal)

== ENCOUNTER → 2017-07-12 | Outpatient (CLI) | payer OTHER ==
[2017-07-12 11:04] LABS: BASO % 0.3 %; BASO ABS # 0.02 K/uL (0-0.2); COMPLETE YES; EOS % 4.6 %; IG% 0.4 %; LYMPH % 29.9 %; LYMPH ABS # 2.23 K/uL (1.2-3.4); MEAN CELL VOLUME 98.1 fL (80-100); MEAN CORPUSCULAR HEMOGLOBIN 33.8 pg (25-34); MEAN CORPUSCULAR HGB CONC 34.5 g/dl (32-36); MEAN PLATELET VOLUME 11.5 fL (7.4-10.4); MONO % 14.2 %; NEUT % 50.6 %; PLATELET COUNT 224 K/uL (130-400); RED BLOOD COUNT 4.79 M/uL (4.7-6.1); WHITE BLOOD COUNT 7.45 K/uL (4.8-10.8)
[2017-07-12 11:24] LABS: ALT/SGPT 29 U/L (12-78); AST/SGOT 21 U/L (15-37); BLOOD UREA NITROGEN 29 mg/dl (7-18); BUN/CREATININE RATIO 26.7 (10-20); CALCIUM 8.6 mg/dl (8.5-10.1); CARBON DIOXIDE 26 mmol/L (21-32); CHLORIDE 108 mmol/L (98-107); CREATININE 1.08 mg/dl (0.60-1.40); GLUCOSE 140 mg/dl (70-99); SODIUM 141 mmol/L (136-145)
[2017-07-12 11:26] LABS: ALB/GLOB RATIO 1.2 (0.9-2); ALKALINE PHOSPHATASE 64 U/L (45-117)
== END | disposition home or self-care (01) ==
LOC: C.LABBC 08:09
PROVIDERS: ATTEND Psychiatry & Neurology Neurology
DX: G44.009 Cluster headache syndrome, unspecified, not intractable (principal)

== ENCOUNTER → 2017-07-28 | Outpatient (CLI) | payer OTHER ==
--- NOTE | 2017-07-28 10:46 | DIAGNOSTIC IMAGING REPORT ---
Study: Fusion CT sinuses. HISTORY: Rhinitis. Headache. Infection. FINDINGS: Mild mucosal thickening of the mastoid air cells on the right and to lesser extent left. The ossicles of the middle ear appear unremarkable bilaterally. There are findings of prior ethmoidectomy and antral window placement. There has been partial resection of the nasal turbinates. There is a minimal mucosal thickening of the maxillary sinuses as well as ethmoid sinuses. There is minimal mucosal thickening of the frontal sinuses. The sphenoid sinuses are clear. There is no bony destructive process. Orbital margins appear to be intact. There are mild hyperplastic slightly nodular changes of the residual nasal turbinates. IMPRESSION: 1. Operative changes consistent with prior partial ethmoidectomy and bilateral antral window placement. 2. Partial resection of components of the nasal turbinates with mild residual hyperplastic/nodular change. 3. Minimal scattered mucosal thickening of the maxillary ethmoid and frontal sinuses. 4. Mild mucosal thickening of the mastoid air cells Electronically signed by: John Carrion M.D. 07/28/2017 10:44 AM Dictated Date/Time: 07/28/2017 10:36 AM
== END | disposition home or self-care (01) ==
LOC: C.CTS 10:15
PROVIDERS: ATTEND Physician Assistant
DX: J30.9 Allergic rhinitis, unspecified (principal); Z98.890 Other specified postprocedural states; J34.89 Other specified disorders of nose and nasal sinuses

== ENCOUNTER → 2017-11-15 | Outpatient (CLI) | payer OTHER ==
[2017-11-15 14:13] LABS: INFLUENZA B ANTIGEN Neg for Influ B (NEG)
== END | disposition home or self-care (01) ==
LOC: C.LABSPEC 13:10
PROVIDERS: ATTEND Family Medicine
DX: J02.9 Acute pharyngitis, unspecified (principal)

== ENCOUNTER → 2017-12-28 | Outpatient (CLI) | payer OTHER ==
[2017-12-28 11:36] LABS: BASO % 0.4 %; BASO ABS # 0.04 K/uL (0-0.2); HEMATOCRIT 49.1 % (42-52); HEMOGLOBIN 16.6 g/dL (14.0-18.0); IG# 0.03 K/uL (0.00-0.02); LYMPH % 24.5 %; LYMPH ABS # 2.47 K/uL (1.2-3.4); MEAN CELL VOLUME 100.8 fL (80-100); MEAN CORPUSCULAR HEMOGLOBIN 34.1 pg (25-34); MEAN CORPUSCULAR HGB CONC 33.8 g/dl (32-36); MONO % 13.1 %; MONO ABS # 1.32 K/uL (0.11-0.59); NEUT % 58.7 %; NEUT ABS # 5.92 K/uL (1.4-6.5); PLATELET COUNT 212 K/uL (130-400); RED CELL DISTRIBUTION WIDTH CV 13.6 % (11.5-14.5); RED CELL DISTRIBUTION WIDTH SD 50.5 fL (36.4-46.3); WHITE BLOOD COUNT 10.08 K/uL (4.8-10.8)
[2017-12-28 11:49] LABS: ALBUMIN 3.9 gm/dl (3.4-5.0); AST/SGOT 16 U/L (15-37); BLOOD UREA NITROGEN 31 mg/dl (7-18); CALCIUM 9.3 mg/dl (8.5-10.1); CARBON DIOXIDE 27 mmol/L (21-32); CREATININE 1.18 mg/dl (0.60-1.40); GLUCOSE 147 mg/dl (70-99); SODIUM 140 mmol/L (136-145)
[2017-12-28 11:52] LABS: ALKALINE PHOSPHATASE 72 U/L (45-117); ALT/SGPT 26 U/L (12-78); TOTAL PROTEIN 6.9 gm/dl (6.4-8.2)
== END | disposition home or self-care (01) ==
LOC: C.LABSPEC 11:19
PROVIDERS: ATTEND Family Medicine
DX: Z01.812 Encounter for preprocedural laboratory examination (principal)

== ENCOUNTER → 2017-12-29 | Outpatient (CLI) | payer OTHER ==
[2017-12-29 11:41] LABS: PTT PATIENT 27.5 SECONDS (21.0-31.0)
== END | disposition home or self-care (01) ==
LOC: C.LABSPEC 11:10
PROVIDERS: ATTEND Family Medicine
DX: Z01.812 Encounter for preprocedural laboratory examination (principal)

== ENCOUNTER 2019-02-02 05:59 | Inpatient (IN) ==
--- OUTSIDE RECORDS SUMMARY | 2019-02-02 06:01 | External Medical Summary | Continuity of Care Document ---
:1945 Author Name Cassandra Moreau, Provider Address Unavailable Unavailable , Care Team Providers Name Role Phone Gokul Moreau, Tony Sim Unavailable [email or web address] Kye Pollock M.D. Unavailable [email or web address] Raúl VILLALPANDO Unavailable Unavailable Unavailable Unavailable Unavailable Problems Epidermal inclusion cyst (706.2) (L72.0) AAA (abdominal aortic aneurysm) (441.4) (I71.4) Hyperlipidemia (272.4) (E78.5) Hypertension (401.9) (I10) CAD (coronary artery disease) (414.00) (I25.10) PAD (peripheral artery disease) (443.9) (I73.9) Chronic sinusitis (473.9) (J32.9) Pressure sensation in both ears (388.8) (H93.8X3) Allergic rhinitis (477.9) (J30.9) Allergic conjunctivitis (372.14) (H10.10) Dysfunction of both eustachian tubes (381.81) (H69.83) Cluster headaches (339.00) (G44.009) Ventral hernia (553.20) (K43.9) H/O heart bypass surgery (V45.81) (Z95.1) COPD (chronic obstructive pulmonary disease) (496) (J44.9) Arthritis (716.90) (M19.90) Allergies and Adverse Reactions Augmentin (Allergy) Medications Levothyroxine Sodium 200 MCG Oral Tablet; TAKE 1 TABLET ELIF Y. Refills: 0 PriLOSEC OTC TBEC Refills: 0 Aspirin 81 MG TABS; TAKE 1 TABLET DAILY. Refills: 0 Atorvastatin Calcium 20 MG Oral Tablet; Take 1 tablet daily Refills: 0 Benazepril HCl - 5 MG Oral Tablet; TAKE 1 TABLET DAILY. Refills: 0 Cromolyn Sodium 4 % Ophthalmic Solution; instill one drop in each day 2-4 times a day prn Prieto Wray Start: 17-Aug-2017 Quantity: 1 10 ML Bottle Refills: 11 Cromolyn Sodium 5.2 MG/ACT Nasal Aerosol Solution; USE 1 SPRAY IN EACH NOSTRIL 3-4 TIMES DAILY, EVERY 4-6 HOURS. Prieto Wray Start: 17-Aug-2017 Quantity: 1 26 ML Bottle Refills: 11 traMADol HCl - 50 MG Oral Tablet; TAKE 1 TO 2 TABLETS EVERY 6 HOURS NEEDED FOR PAIN. Prieto Hodgson Start: 22-Dec-2012 Quantity: 40 Refills: 0 Nitrostat 0.4 MG Sublingual Tablet Subli ngual; PLACE 1 TABLET UNDER THE TONGUE EVERY 5 MINUTES FOR UP TO 3 DOSES NEEDED FOR CHEST PAIN.CALL 911 IF PAIN PERSISTS. Start: 07-Jun-2016 Quantity: 1 25 Tablet Sublingual Bottle Refills: 0 Metoprolol Succinate ER 50 MG Oral Table t Extended Release 24 Hour; TAKE 1 TABLET BY MOUTH DAILY Start: 09-Aug-2017 Refills: 0 90 Tablet Bottle Symbicort 80-4.5 MCG/ACT Inhalation Aerosol; INHALE 1 PUFFS Twice daily 6.9 GM Inhaler Refills: 0 Fceumjwrgx-OQKA-Lyaslcbo 50-325-40 MG Or al Capsule; Take 1 to 2 tab every 4-6 hours prn headache . Max 2 doses in 24hrs or 3 doses in 7 days. Prieto Paul Start: 18-May-2017 Quantity: 20 Refills: 0 Multi-Vitamin TABS; TAKE 1 TABLET DAILY. Refills: 0 Lantus SoloStar 100 UNIT/ML Subcutaneous Solution Pen-injector; INJECT 10 UNIT Daily Refills: 0 Azelastine HCl - 0.1 % Nasal Solution; INSTILL 2 SQUIRT Twic e daily 30 ML Bottle Refills: 3 Procedures History of Endovascular Repair Of Abdominal Aorta Aneurysm Status: Completed History of CABG Status: Completed History of appendectomy Status: Complete d Immunizations Immunizations not documented Family History Father Family history of cardiac disorder (V17.49) (Z82.49) Status: Active Family history of hypertension (V17.49) (Z82.49) Status: Act [place] Family history of myocardial infarction (V17.3) (Z82.49) Sta tus: Active Mother Family history of hypertension (V17.49) (Z82.49) Status: Act [place] natural daughter Family history of sinusitis (V17.6) (Z83.6) Status: Active Brother Family history of sinusitis (V17.6) (Z83.6) Status: Active Social History - Smoking Status Smoker. current status unknown Plan of Treatment Planned Encounters Appointment; Juan Paul M.D. Start: 16-Jul-2019 10:00 Req uest Planned Observations Planned Goals not documented Results No Known Results Results not documented Encounters Appointment; Juan Palu M.D. 13-Jul-2018 9:30 Encounter Diagnosis: Problem not documented Appointment; Mikhail Brito M.D. 22-Aug-2017 11:30 Encounter Diagnosis: Problem not documented Appointment; Neema Wray M.D. 17-Aug-2017 15:00 Encounter Diagnosis: Problem not documented Appointment; [facility] Allergy, Testing Room 17-Aug-2017 14:00 Encounter Diagnosis: Problem not documented Appointment; Neema Wray M.D. 09-Aug-2017 8:30 Encounter Diagnosis: Problem not documented Appointment; Juan Paul M.D. 14-Jul-2017 10:00 Encounter Diagnosis: Problem not documented Appointment; Nae Montoya PA-C 14-Jul-2017 8:40 Encounter Diagnosis: Problem not documented Appointment; Nae Montoya PA-C 13-Jun-2017 9:40 Encounter Diagnosis: Problem not documented Appointment; Gabriel Dai Au.D.|[facility] 13-Jun-2017 9:20 Encounter Diagnosis: Problem not documented Appointment; Juan Moreland PA-C 06-Jun-2017 13:30 Encounter Diagnosis: Problem not documented Appointment; Juan Paul M.D. 03-May-2017 14:00 Encounter Diagnosis: Problem not documented Appointment; Juan Paul M.D. 16-Jul-2019 10:00 Encounter Diagnosis: Problem not documented"
[2019-02-02 06:25] LABS: Basophils # (auto) 0.03 K/uL (0-0.2); Basophils % (auto) 0.2 %; Eosinophils # (auto) 0.27 K/uL (0-0.5); Eosinophils % (auto) 1.8 %; Hematocrit (blood only) 45.8 % (42-52); Hemoglobin 16.1 g/dL (14.0-18.0); Immature Granulocytes # (auto) 0.05 K/uL (0.00-0.02); Immature Granulocytes % (auto) 0.3 %; Lymphocytes # (auto) 2.19 K/uL (1.2-3.4); Lymphocytes % (auto) 14.4 %; Mean Corpuscular Hgb Conc 35.2 g/dL (32-36); Mean Corpuscular Volume 98.5 fL (80-100); Mean Platelet Volume 11.7 fL (7.4-10.4); Monocytes # (auto) 1.87 K/uL (0.11-0.59); Monocytes % (auto) 12.3 %; Platelet Count 175 K/uL (130-400); RDW Coefficient of Variation 13.3 % (11.5-14.5); RDW Standard Deviation 47.9 fL (36.4-46.3); Red Blood Count 4.65 M/uL (4.7-6.1); White Blood Count 15.21 K/uL (4.8-10.8)
--- NOTE | 2019-02-02 06:29 | XRay Report ---
XR chest 1V portable CLINICAL HISTORY: Chest pain dyspnea COMPARISON STUDY: 09/05/2019 FINDINGS: Mild stable cardiomegaly. Prior median sternotomy. Diaphragms are smooth. Mild increase in prominence of pulmonary vasculature. IMPRESSION: Mild congestive heart failure. The above report was generated using voice recognition software. It may contain grammatical, syntax or spelling errors. Electronically signed by: John Carrion M.D. 02/02/2019 6:28 AM
--- NOTE | 2019-02-02 06:30 | Emergency Department Note ---
History of Present Illness General Chief complaint: Chest Pain Stated complaint: CHEST PAIN Time Seen by Provider: 02/02/19 06:13 History of Present Illness Maximum Pain Intensity: 5 This is a 73-year-old male presenting to the emergency department via ambulance for evaluation of right-sided chest pain that began approximately 3 hours prior to arrival at 3 AM. The patient states that he awoke with right-sided a sharp and heavy sensation. The patient has a history of cardiac disease including CABG and AAA repair. He is a smoker and smokes 1 cigar daily. The patient has not had recent illness such as fever or chills. He was given 324 mg aspirin, 3 doses of nitroglycerin, and 50 mcg fentanyl prehospital. This did take his pain from an 8/10 to a 5/10. The patient is not having radiation into his head or neck. He does not have abdominal pain or rash. He does not report similar symptoms like this in the past. Home Medications Home Medications Medication Instructions Recorded Confirmed Type albuterol sulfate [ProAir HFA] 2 puff INHALATION Q4H PRN 02/02/19 02/02/19 History aspirin 81 mg PO DAILY 02/02/19 02/02/19 History atorvastatin 10 mg PO DAILY 02/02/19 02/02/19 History azelastine 2 spray INTRANASAL DAILY 02/02/19 02/02/19 History benazepril 5 mg PO DAILY 02/02/19 02/02/19 History budesonide-formoterol [Symbicort] 2 puff INHALATION BID 02/02/19 02/02/19 History celecoxib 200 mg PO DAILY 02/02/19 02/02/19 History diclofenac sodium 75 mg PO BID 02/02/19 02/02/19 History ergocalciferol (vitamin D2) 50,000 unit PO WK 02/02/19 02/02/19 History [Vitamin D2] fluticasone propionate 2 spray INTRANASAL DAILY 02/02/19 02/02/19 History insulin degludec [Tresiba 16 unit SUBCUT DAILY 02/02/19 02/02/19 History FlexTouch U-100] levalbuterol HCl 1.25 mg INHALATION DIRECTED PRN 02/02/19 02/02/19 History levothyroxine 200 mcg PO DAILY 02/02/19 02/02/19 History metoprolol succinate 50 mg PO DIRECTED 02/02/19 02/02/19 History omeprazole 20 mg PO DAILY 02/02/19 02/02/19 History pregabalin [Lyrica] 75 mg PO BID 02/02/19 02/02/19 History tramadol 50 mg PO BID PRN 02/02/19 02/02/19 History Allergies Allergy/AdvReac Type Severity Reaction Status Date / Time amoxicillin AdvReac Mild UPSET Verified 02/02/19 06:23 STOMACH clavulanic acid AdvReac Mild UPSET Verified 02/02/19 06:23 STOMACH Past Med/Surg History Medical History Easy bruisability (Chronic ~07/2012) CAD (coronary artery disease) COPD (chronic obstructive pulmonary disease) Elevated troponin I level GERD (gastroesophageal reflux disease) Hypothyroid Tobacco abuse Surgical History S/P AAA repair Social History Feels Safe at Home: Yes Smoking Status: Former smoker Review of Systems A total of 10 systems reviewed and were otherwise negative Physical Exam Vital Signs Vital Signs - 24 hr 02/02/19 06:04 02/02/19 06:14 02/02/19 06:30 Temperature 36.7 C Temperature Source Oral Sepsis Recent Fever Within 48 Hours No Sepsis New/Unexplained Change in Mental Status No Sepsis Action Taken by Nursing No Action Required Pulse Rate 76 Pulse Rate [Apical] 64 Pulse Rhythm [Apical] Regular Respiratory Rate 18 18 Respiratory Effort / Characteristics Non-Labored Spontaneous Non-Labored Spontaneous Respiratory Depth Normal Normal Respiratory Pattern Regular Regular Blood Pressure 124/90 Blood Pressure [Right Arm] 149/83 H Blood Pressure Mean 101 Blood Pressure Mean [Right Arm] 105 Blood Pressure Position [Right Arm] Sitting Pulse Oximetry 92 95 94 Oxygen Delivery Method Room Air Room Air Room Air VITALS: Vitals are noted on the nurse's note and reviewed by myself. Vital signs stable. GENERAL: Well-developed, well-nourished, white male, who is in moderate discomfort. He is holding his right hand over his right side chest wall. Patient is cooperative with the examination. HEAD: Normocephalic atraumatic. EYES: Pupils equal round and reactive to light and accommodation. Conjunctivae without injection, sclerae without icterus. Extraocular movements intact. HEART: Regular rate and rhythm without murmurs gallops or rubs. LUNGS: Clear to auscultation bilaterally without wheezes, rales or rhonchi. No retractions or accessory muscle use. ABDOMEN: Positive normal bowel sounds x 4. Soft, nontender, without masses or organomegaly. No guarding or rebound tenderness. MUSCULOSKELETAL: No muscle atrophy, erythema, or edema noted. Full range of motion in all extremities. No calf tenderness or significant lower extremity edema NEURO: Patient was alert and oriented to person place and time. CN II through XII grossly intact. SKIN: The skin was without rashes, erythema, edema, or bruising. Capillary refill less than 2 seconds. No rash or vesicles appreciated in the area of patient reported discomfort Course Administered Medications Discontinued Medications Fentanyl Citrate (Fentanyl Citrate) 50 mcg IV NOW STA Stop: 02/02/19 06:56 Last Admin: 02/02/19 07:02 Dose: 50 mcg Documented by: [id number] Nitroglycerin (Nitro-Bid 2%) 1 inch EXT NOW ONE Stop: 02/02/19 06:34 Last Admin: 02/02/19 06:42 Dose: 1 inch Documented by: [id number] Medical Decision Making Differential Diagnosis Differential diagnosis includes, but is not limited to: Myocardial infarction, dysrhythmia, pericarditis, pneumothorax, aortic aneurysm/dissection, DVT/PE, anxiety, GERD, PUD, electrolyte imbalance, thyroid disorder, pneumonia, bronchitis, pancreatitis, and others Laboratory Data Result diagrams: 02/02/19 06:13 02/02/19 06:13 Lab Results 02/02/19 02/02/19 02/02/19 Range/Units 06:13 06:13 06:13 WBC 15.21 H (4.8-10.8) K/uL RBC 4.65 L (4.7-6.1) M/uL Hgb 16.1 (14.0-18.0) g/dL Hct 45.8 (42-52) % MCV 98.5 (80-100) fL MCH 34.6 H (25-34) pg MCHC 35.2 (32-36) g/dL RDW Std Deviation 47.9 H (36.4-46.3) fL RDW Coeff of Sara 13.3 (11.5-14.5) % Plt Count 175 (130-400) K/uL MPV 11.7 H (7.4-10.4) fL Immature Gran % (Auto) 0.3 % Neut % (Auto) 71.0 % Lymph % (Auto) 14.4 % [place] % (Auto) 12.3 % Eos % (Auto) 1.8 % Baso % (Auto) 0.2 % Immature Gran # (Auto) 0.05 H (0.00-0.02) K/uL Neut # (Auto) 10.80 H (1.4-6.5) K/uL Lymph # (Auto) 2.19 (1.2-3.4) K/uL [place] # (Auto) 1.87 H (0.11-0.59) K/uL Eos # (Auto) 0.27 (0-0.5) K/uL Baso # (Auto) 0.03 (0-0.2) K/uL PT 10.3 (9.0-12.0) Seconds INR 1.0 (0.9-1.1) APTT 28.0 (21.0-31.0) Seconds PTT Ratio 1.0 Sodium 140 (136-145) mmol/L Potassium 4.2 (3.5-5.1) mmol/L Chloride 109 H (98-107) mmol/L Carbon Dioxide 25 (21-32) mmol/L Anion Gap 6.0 (3-11) BUN 29 H (7-18) mg/dl Creatinine 1.08 (0.6-1.4) mg/dl Est Cr Clr Drug Dosing 79.9 ml/min Est GFR ( Amer) 79.6 Est GFR (Non-Af Amer) 68.7 BUN/Creatinine Ratio 27.1 H (10-20) Glucose 149 H (70-99) mg/dl Calcium 8.3 L (8.5-10.1) mg/dl Magnesium 2.0 (1.8-2.4) mg/dl Total Bilirubin 0.6 (0.2-1) mg/dl AST 27 (15-37) U/L ALT 47 (12-78) U/L Alkaline Phosphatase 78 (45-117) U/L Troponin I 0.173 H* (0-0.045) ng/ml NT-Pro-B Natriuret Pep 1385 H (0-900) pg/ml Total Protein 6.9 (6.4-8.2) gm/dl Albumin 3.4 (3.4-5.0) gm/dl Globulin 3.5 (2.5-4.0) gm/dl Albumin/Globulin Ratio 1.0 (0.9-2) Lipase 70 L (73-393) U/L TSH 1.800 (0.300-4.500) uIu/ml 02/02/19 Range/Units 06:13 WBC (4.8-10.8) K/uL RBC (4.7-6.1) M/uL Hgb (14.0-18.0) g/dL Hct (42-52) % MCV (80-100) fL MCH (25-34) pg MCHC (32-36) g/dL RDW Std Deviation (36.4-46.3) fL RDW Coeff of Sara (11.5-14.5) % Plt Count (130-400) K/uL MPV (7.4-10.4) fL Immature Gran % (Auto) % Neut % (Auto) % Lymph % (Auto) % [place] % (Auto) % Eos % (Auto) % Baso % (Auto) % Immature Gran # (Auto) (0.00-0.02) K/uL Neut # (Auto) (1.4-6.5) K/uL Lymph # (Auto) (1.2-3.4) K/uL [place] # (Auto) (0.11-0.59) K/uL Eos # (Auto) (0-0.5) K/uL Baso # (Auto) (0-0.2) K/uL PT (9.0-12.0) Seconds INR (0.9-1.1) APTT (21.0-31.0) Seconds PTT Ratio Sodium (136-145) mmol/L Potassium (3.5-5.1) mmol/L Chloride (98-107) mmol/L Carbon Dioxide (21-32) mmol/L Anion Gap (3-11) BUN (7-18) mg/dl Creatinine (0.6-1.4) mg/dl Est Cr Clr Drug Dosing ml/min Est GFR ( Amer) Est GFR (Non-Af Amer) BUN/Creatinine Ratio (10-20) Glucose (70-99) mg/dl Calcium (8.5-10.1) mg/dl Magnesium (1.8-2.4) mg/dl Total Bilirubin (0.2-1) mg/dl AST (15-37) U/L ALT (12-78) U/L Alkaline Phosphatase (45-117) U/L Troponin I (0-0.045) ng/ml NT-Pro-B Natriuret Pep Cancelled (0-900) pg/ml Total Protein (6.4-8.2) gm/dl Albumin (3.4-5.0) gm/dl Globulin (2.5-4.0) gm/dl Albumin/Globulin Ratio (0.9-2) Lipase (73-393) U/L TSH (0.300-4.500) uIu/ml Imaging Data Radiologist's Impression: XR chest 1V portable CLINICAL HISTORY: Chest pain dyspnea COMPARISON STUDY: 09/05/2019 FINDINGS: Mild stable cardiomegaly. Prior median sternotomy. Diaphragms are smooth. Mild increase in prominence of pulmonary vasculature. IMPRESSION: Mild congestive heart failure. ECG Data Attestation: I personally reviewed and interpreted this ECG as follows: Additional Comments: Sinus rhythm @71bpm with 1st degree A-V block with Premature atrial complexes Inferior infarct (cited on or before 31-DEC-2014) Abnormal ECG When compared with ECG of 03-DEC-2016 06:24, Premature atrial complexes are now Present Sinus rhythm is no longer with 2nd degree A-V block (Mobitz I) ST now depressed in Inferior leads ST now depressed in Anterior leads ST less depressed in Lateral leads T wave inversion now evident in Inferior leads MDM Narrative Physical exam and history were performed. Nursing notes, EMR, and Medication List were personally reviewed. Patient appears to have right-sided chest pain for the past 3 hours. On examination he appears uncomfortable. Prehospital EKGs were reviewed without acute ST elevation. EKG was performed here and compared to old EKGs he does have marketed changes including ST depressions in the anterior lateral leads. IV access was established and labs were obtained. Chest x-ray was performed. The patient was placed on the plant controls specialist. Nitropaste was applied and the patient was given additional IV fentanyl. The case was discussed with my attending physician, Dr. Hargrove, who also independently evaluated the patient. The patient's blood work is as above and was reviewed. He does have an elevated white blood cell count of 15,000. He does not have a significant anemia or gross electrolyte imbalance. Glucose is 149. BNP is 1385. Lipase and transaminases are not diagnostic. TSH shows euthyroid state. The patient's troponin is elevated at 0.173, which is higher than his usual baseline of roughly 0.07. X-ray was reviewed by myself and radiology as showing some mild CHF. Overall the patient does not appear well for discharge home. He does have chest pain with an elevated troponin from his usual baseline. His discomfort seems to improve with nitro and pain medication. He has an extensive cardiovascular his tory and will require further evaluation. The case was discussed with the on- call hospitalist, Dr. Hodgson, who agreed to have the patient evaluated. Please see the hospitalist dictation for further patient course, plan, and disposition. The chart was completed utilizing [employer] Speech Voice Recognition Software. Grammatical errors, random word insertions, pronoun errors, and incomplete sentences are an occasional consequence of this system due to software limitations, ambient noise, and hardware issues. Any formal questions or concerns about the content, text, or information contained within the body of this dictation should be directly addressed to the provider for clarification. . Impression & Plan Chest pain, Elevated troponin Discharge Plan Visit Data Chief Complaint: Chest Pain Stated Complaint: CHEST PAIN ED Provider: Samantha Hargrove ED Midlevel Provider: Alistair Jimenes Discharge Problem: Chest pain, Elevated troponin Patient Disposition: Being Evaluated by Hospitalist Forms Stand Alone Forms: Call Back Authorization, [facility] Prescriptions Prescriptions: No Action aspirin 81 mg Tablet,Delayed Release (Dr/Ec) 81 mg PO DAILY RF: 0 atorvastatin 10 mg Tablet 10 mg PO DAILY RF: 0 azelastine 137 mcg (0.1 %) Aerosol,[place] 2 spray INTRANASAL DAILY RF: 0 benazepril 5 mg Tablet 5 mg PO DAILY RF: 0 fluticasone propionate 50 mcg/actuation [place],Suspension 2 spray INTRANASAL DAILY RF: 0 levothyroxine 200 mcg Tablet 200 mcg PO DAILY RF: 0 omeprazole 20 mg Tablet,Delayed Release (Dr/Ec) 20 mg PO DAILY RF: 0 tramadol 50 mg Tablet 50 mg PO BID PRN (Reason: Pain) RF: 0 albuterol sulfate [ProAir HFA] 90 mcg/actuation Hfa Aerosol Inhaler 2 puff INHALATION Q4H PRN (Reason: sob/wheezing) RF: 0 Lyrica 75 mg Capsule 75 mg PO BID RF: 0 celecoxib 200 mg Capsule 200 mg PO DAILY RF: 0 diclofenac sodium 75 mg Tablet,Delayed Release (Dr/Ec) 75 mg PO BID RF: 0 metoprolol succinate 50 mg Tablet Extended Release 24 Hr 50 mg PO DIRECTED RF: 0 Symbicort 160-4.5 mcg/actuation Hfa Aerosol Inhaler 2 puff INHALATION BID RF: 0 Tresiba FlexTouch U-100 100 unit/mL (3 mL) Insulin Pen 16 unit SUBCUT DAILY RF: 0 ergocalciferol (vitamin D2) [Vitamin D2] 50,000 unit Capsule 50,000 unit PO WK RF: 0 levalbuterol HCl 1.25 mg/3 mL Solution For Nebulization 1.25 mg INHALATION DIRECTED PRN (Reason: sob) RF: 0 Referrals Referrals: Juan Carr [Primary Care Provider] -
[2019-02-02] MEDS ORDERED: NITROGLYCERIN 2% OINTMENT 30GM TUBE EXT ONE (06:33)
[2019-02-02 06:39] LABS: Prothrombin Time 10.3 Seconds (9.0-12.0)
[2019-02-02 06:45] LABS: Albumin Level 3.4 gm/dl (3.4-5.0); Calcium 8.3 mg/dl (8.5-10.1); Potassium 4.2 mmol/L (3.5-5.1)
[2019-02-02 06:46] LABS: BUN Creatinine Ratio 27.1 (10-20); Creatinine Clr Calc Pharmacy 79.9 ml/min; Est GFR (African American) 79.6; Est GFR (Non-African American) 68.7
[2019-02-02] MEDS ORDERED: fentaNYL citrate 100 MCG/2 ML VIAL IV STA (06:55)
[2019-02-02 07:03] LABS: Bilirubin,Total 0.6 mg/dl (0.2-1); Globulin 3.5 gm/dl (2.5-4.0); Total Protein 6.9 gm/dl (6.4-8.2); Troponin I 0.173 ng/ml (0-0.045)
--- NOTE | 2019-02-02 07:15 | Emergency Department Note ---
ED Visit Note I saw this patient in conjunction with Alistair Jimenes PA-C. I agree with his decision making and treatment plan. .
[2019-02-02] MEDS ORDERED: DEXTROSE 50% 50 ML SYRINGE IV PRN (09:10)
[2019-02-02] MEDS ORDERED: GLUCAGON FOR INJ 1 MG VIAL SQ PRN (09:10)
[2019-02-02] MEDS ORDERED: GLUCOSE 40% GEL 15 GM TUBE PO PRN (09:10)
[2019-02-02] MEDS ORDERED: CARBOHYDRATES FOR HYPOGLYCEMIA PO PRN (09:10)
[2019-02-02] MEDS ORDERED: LEVALBUTEROL HCL 1.25 MG/3 ML NEB INH PRN (09:10)
[2019-02-02] MEDS ORDERED: GLUCOSE 10 TABS/TUBE PO PRN (09:10)
[2019-02-02] MEDS ORDERED: CeleBREX 200 MG CAP PO SCH (09:10)
[2019-02-02] MEDS ORDERED: HEPARIN IV BOLUS 7,000 UNITS in SYRINGE 0 ML IV ONE (09:45)
[2019-02-02] MEDS ORDERED: Heparin Adult STANDARD Wt-Based Dextrose 5% 25,000 units/500 mL IV SCH (09:45)
[2019-02-02] MEDS: PANTOprazole 40 MG TAB PO SCH (10:37)
[2019-02-02] MEDS: ASPIRIN 81 MG ECTAB PO SCH (10:37)
[2019-02-02] MEDS: FLUTICASONE PROPIONATE NA SPR 16 GM BTL SCH (10:37)
[2019-02-02] MEDS: ATORVASTATIN 10 MG TAB PO SCH (10:37)
[2019-02-02] MEDS: BUDESONIDE/FORMOTEROL FUMARATE 160/4.5 60 PUFFS/INHALER INH SCH ×2 (10:38→21:28)
[2019-02-02] MEDS: PREGABALIN 75 MG CAP PO SCH ×2 (10:39→20:57)
--- NOTE | 2019-02-02 11:14 | Consultation Report ---
DATE OF CONSULTATION: 02/02/2019 REQUESTING: Kyle Hodgson MD CORE MANAGER: Nabor Valdes DO, [facility]. REASON FOR CONSULTATION: Chest discomfort, known coronary artery disease, elevated white count with cough. Dear Dr. Hodgson: Thank you for requesting a consultation on Wade with regards to his chest discomfort. He awoke at 3:00 in the morning with right-sided chest discomfort. He initially called it is stabbing in nature. He was given nitroglycerin without significant improvement, came to the Emergency Room. In the ER, he has an EKG with significant dynamic ST depression in the precordial leads. When talking to him, he describes a burning sensation over the right side of his chest. It is not as severe as it was last night, there is no radiation currently, but last night it did radiate around into his back. He denies any associated diaphoresis or shortness of breath. I did inquire as to whether he has noticed a decline in his exercise capacity on the last couple of days or weeks, he has been going to the gym, exercising for an hour and did not really know much in the way of anginal symptoms and denied any burning on the right side of his chest. He has had a chronic cough for the last 3-4 weeks, he has been on multiple rounds of antibiotics and describes it as a head cold. He does have productive sputum which he describes as a clearish to white in nature, but it is not yellow or green. He feels pressure in his head as well. He denies any palpitations, fluttering, feeling his heart racing and he has any lower extremity edema. He does have chronic symptoms of claudication, but he notes they have been getting better with him exercising. He denies any fevers or chills, denies any dark stools or black stools. He does chronically bruise easily. The rest of review of system is otherwise negative. PAST MEDICAL HISTORY: 1. Coronary artery disease, status post coronary bypass grafting x3 December 2014 at [facility] with a LANCE to the LAD and an SVG to OM3 and an SVG to the PDA. 2. Cardiac catheterization at [facility] 12/2014 with a moderate ostial left main disease with moderate to severe distal left main disease, 70% proximal LAD lesion with a 90% ostial D1 lesion in a small to moderate size vessel, patent circumflex with an large OM1 with total occlusion of the inferior branch with left to left collaterals. 3. Dominant RCA with a mid 90% mid tandem stenoses. 4. [id number] left ventricular dysfunction with an EF in the range of 40%, most recently with inferior and inferolateral akinesis consistent with prior inferior infarct. 5. Open abdominal aortic aneurysm repair in 1999 at [facility]. 6. Bilateral lower extremity claudication with total occlusion of both SFAs and reconstitution of the popliteals above the knee. 7. Ischemic cardiomyopathy. 8. 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 9. Hypertension. 10. Hyperlipidemia. 11. Non-ST elevation myocardial infarction in 2014 before his bypass surgery. 12. Hypothyroidism. 13. GERD. 14. History of cluster headaches. 15. Ongoing cough and head cold. ALLERGIES: AUGMENTIN AND POSSIBLY STATINS. MEDICATIONS: Reviewed in electronic medical record. FAMILY HISTORY: Positive for premature heart disease. 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 He does smoke a cigar daily. He denies any alcohol or drug use. PHYSICAL EXAMINATION: GENERAL: He is awake, alert, oriented x3. He has some mild chest burning. VITAL SIGNS: His heart rate is 56, blood pressure 128/75, respirations 18. His sat is 92% on room air. HEENT: Mildly reduced carotid upstrokes. No evidence of carotid bruits. Jugular venous pressure did not appear elevated. His sclerae is anicteric. His hearing is mildly diminished. LUNGS: Globally decreased breath sounds, but no rales, rhonchi or wheezing. HEART: Regular rate and rhythm. No appreciable murmurs, rubs or gallops. ABDOMEN: Soft, nontender, mildly chronically distended. Positive bowel sounds. EXTREMITIES: No clubbing, cyanosis or edema. DIAGNOSTIC STUDIES: Chest x-ray: Mild congestive heart failure. No evidence of pneumonia. LABORATORY DATA: White count of 15.21, platelet count of 175, hemoglobin of 16.1. He does have a predominant neutrophilia pattern. Coags are normal. Sodium 140, potassium 4.2, BUN 29, creatinine 1.08. His first troponin is 0.173. TSH is normal. EKG, sinus rhythm, first-degree AV block, inferior ME, age indeterminate. The first EKG has marked ST depression in the inferior and anterior lateral leads which is significantly worse than his prior EKG concerning for significant ischemia. Second EKG, sinus rhythm, inferior ME, first-degree AV block, ST-T changes which still are consistent with inferior and anterior lateral ischemia, but slightly improved compared to his previous. IMPRESSION: 1. Right-sided chest discomfort with a burning sensation with marked ST depression, new, significantly worse compared to his prior EKGs. 2. Small non-ST elevation myocardial infarction. 3. Known significant 3-vessel coronary artery disease. 4. Coronary bypass grafting x3 in 2014 with a LANCE to the LAD, SVG to the OM3 and an SVG to the PDA. 5. Echocardiogram 03/21/2018 in the [facility] with [id number] left ventricular dysfunction, EF 40% confirmed by 3D imaging, akinesis of the inferior basal to mid inferolateral and basal and mid inferior septal horne consistent with infarct, type 1 diastolic dysfunction with elevated left atrial pressures, no significant valvular heart disease. 6. Hypertension. 7. Hyperlipidemia. 8. Easy bruising. 9. Elevated white count with predominant neutrophils without evidence of infection on his chest x-ray or abdominal pathology or urinary complaints. As I discussed with Wade given his significant ST depression and the mild burning he has, it is concerning that he has had progression of his coronary artery disease since 2014 at the time of his bypass surgery, he did have significant other disease which may only be amenable to medical therapy, but given the extent of the ST depression, it is concerning that he has had progressive disease. In light of that, I discussed with him that I will consider cardiac catheterization to define his coronary anatomy. I discussed the risks and benefits of cardiac catheterization. Risks including but not limited to bleeding or infection of the puncture site, damage to his radial artery, risk of contrast-induced nephropathy, allergic reaction to contrast and 1:1000 risk of heart attack, stroke or dying with the procedure were discussed. He understands the risk and wishes to proceed. There is no evidence of infection on his chest x-ray. He may need a CT of his sinuses to see if he has a chronic sinus infection as a cause for his white count and his productive sputum. His heart rate is slow on beta blockers and therefore they cannot be up titrated. He is on an PASCALE inhibitor as well as aspirin and low-dose atorvastatin. He is intolerant of higher doses of statin therapy. Further recommendations will be forthcoming after his catheterization. All this was discussed with Dr. Brito of interventional cardiology as well as the primary service. ABRAHAM
[2019-02-02] MEDS: INSULIN ASPART 100 UNITS/ML 3 ML PEN SC SCH ×3 (11:55→20:59)
[2019-02-02] MEDS: ACETAMINOPHEN 325 MG TAB PO PRN ×2 (14:00→19:18)
[2019-02-02] MEDS: TRAMADOL HCL 50 MG TABLET PO PRN ×2 (15:53→20:57)
[2019-02-02] MEDS ORDERED: NITROGLYCERIN/D5W 100 MCG/ML BTL ONE (16:42)
--- NOTE | 2019-02-02 16:42 | History & Physical Report ---
Date of Service February 02, 2019 Assessment & Plan (1) NSTEMI (non-ST elevated myocardial infarction): EKG on admission showed 2mm ST depressions in V2-V4 which are new from priors. Initial troponin was 0.17 to 5.6 on repeat. - On ASA - Heparin gtt - On nitro gtt for worsening chest pain in the afternoon of 02/02 - Plan for cath this afternoon with Dr. Brito (2) Leukocytosis: WBC elevated to 15 on admission. No focal signs of infection. CXR on 02/02 showed some mild congestive heart failure, though he is asymptomatic from that standpoint. - Possibly reactive from NSTEMI - Monitor for infectious signs/symptoms (3) Hypertension: BP presently 145/65 despite nitro. - Continue home beta-keaton, ACEi (4) Diabetes: No A1c in charts. - A1c in the AM - Continue home Lantus insulin - Sliding scale insulin (5) Hypothyroid: TSH was 1.8 on 02/02/2019. No signs/symptoms of hypo-/hyperthyroidism. - Continue home Synthroid 200 mcg (6) DVT prophylaxis: On heparin gtt for NSTEMI History of Present Illness Primary Care Provider: Juan Carr 73yo M w/ hx of CABG in 12/2014 and no subsequent stenting or stress testing who presents for chest pain. Per patient, the pain began around 3am and awoke him from sleep. It progressed from a sharp to a aching/pressure pain over the course of several hours, with radiation to the shoulder and around the back. He reports some mild nausea, but otherwise denies any shortness of breath, dizziness, sweatiness or diaphoresis. He took an aspirin and a beta-keaton this morning without improvement. He received 6 nitro pills and some sprays in the ambulance to the hospital. In the ED, he got fentanyl which relieved the pain. Allergies Allergy/AdvReac Type Severity Reaction Status Date / Time amoxicillin AdvReac Mild UPSET Verified 02/02/19 06:23 STOMACH clavulanic acid AdvReac Mild UPSET Verified 02/02/19 06:23 STOMACH Home Medications Home Medications Medication Instructions Recorded Confirmed Type albuterol sulfate [ProAir HFA] 2 puff INHALATION Q4H PRN 02/02/19 02/02/19 His tory aspirin 81 mg PO DAILY 02/02/19 02/02/19 History atorvastatin 10 mg PO DAILY 02/02/19 02/02/19 History azelastine 2 spray INTRANASAL DAILY 02/02/19 02/02/19 History benazepril 5 mg PO DAILY 02/02/19 02/02/19 History budesonide-formoterol [Symbicort] 2 puff INHALATION BID 02/02/19 02/02/19 History celecoxib 200 mg PO DAILY 02/02/19 02/02/19 History diclofenac sodium 75 mg PO BID 02/02/19 02/02/19 History ergocalciferol (vitamin D2) 50,000 unit PO WK 02/02/19 02/02/19 History [Vitamin D2] fluticasone propionate 2 spray INTRANASAL DAILY 02/02/19 02/02/19 History insulin degludec [Tresiba 16 unit SUBCUT DAILY 02/02/19 02/02/19 History FlexTouch U-100] levalbuterol HCl 1.25 mg INHALATION DIRECTED PRN 02/02/19 02/02/19 History levothyroxine 200 mcg PO DAILY 02/02/19 02/02/19 History metoprolol succinate 50 mg PO DIRECTED 02/02/19 02/02/19 History omeprazole 20 mg PO DAILY 02/02/19 02/02/19 History pregabalin [Lyrica] 75 mg PO BID 02/02/19 02/02/19 History tramadol 50 mg PO BID PRN 02/02/19 02/02/19 History Past Med/Surg History Medical History Easy bruisability (Chronic ~07/2012) CAD (coronary artery disease) COPD (chronic obstructive pulmonary disease) Elevated troponin I level GERD (gastroesophageal reflux disease) Hypothyroid Tobacco abuse Surgical History S/P AAA repair Family History Father Coronary heart disease Social History Preferred Language: Thai Communication Ability: Effective Swing Type Lathe Operator Required: No Beliefs That Will Affect Care: None Current Living Situation: Spouse Other Information That Helps Us Care for You: No Feels Safe at Home: Yes Safety Concerns: Feels Safe At This Time Smoking Status: Former smoker Do You Dip or Chew Tobacco: No Second Hand Exposure: No Tobacco Cessation Education Requested by Patient: No Hx Alcohol Use: Yes Hx Substance Use: No Review of Systems Constitutional: no fever, no chills and no sweats Eyes: no diplopia Ear, Nose, Mouth, Throat: no ear trauma, no nasal discharge and no dental pain Respiratory: no cough, no chest congestion and no dyspnea Cardiovascular: + chest pain and + radiating jaw, neck or arm pain; no dyspnea on exertion, no palpitations and no syncope Gastrointestinal: + nausea; no abdominal pain, no belching, no vomiting, no constipation, no diarrhea/loose stools, no blood in stools and no melena Musculoskeletal: no back pain, no joint pain and no muscle weakness Integumentary: no rash, no skin ulcer and no erythema Neurologic: no generalized weakness, no loss of sensation, no numbness and no paresthesia Psychiatric: no depression and no anxiety Endocrine: no fatigue, no polydipsia and no polyphagia Physical Exam Constitutional: WD/WN, vitals as above + acute distress Eyes: EOM intact bilaterally; no conjunctival abnormality ENMT: external ear and nose normal, oropharynx normal Neck: trachea midline, no thyromegaly normal visual inspection Respiratory: normal respiratory effort, lungs clear to auscultation no respiratory distress Cardiovascular: RRR, no murmur, no edema Gastrointestinal (Abdomen): Inspection/Auscultation: abdomen normal to inspection; abdomen not distended Musculoskeletal: no cyanosis or clubbing, extremities motor strength 5/5 Skin: no rashes, warm and dry Neurologic: moves all extremities and awake Psychiatric: Orientation: alert, oriented to person and cooperative Results & Data Vital Signs (Past 12 Hours) Vital Signs Temp Pulse Pulse Resp BP BP Pulse Ox 02/02/19 15:11 58 L 18 146/65 H 02/02/19 15:00 37.0 C 57 L 18 131/70 94 02/02/19 12:02 36.8 C 72 20 151/83 H 93 02/02/19 09:46 37 C 56 L 18 128/75 92 02/02/19 08:41 58 L 18 147/77 H 94 02/02/19 07:37 64 20 149/83 H 95 02/02/19 06:30 64 18 149/83 H 94 02/02/19 06:14 95 02/02/19 06:04 36.7 C 76 18 124/90 92
[2019-02-02] MEDS ORDERED: fentaNYL citrate 100 MCG/2 ML VIAL ONE (16:58)
[2019-02-02] MEDS ORDERED: MIDAZOLAM HCL 1 MG/ML 2ML VIAL ONE (16:58)
[2019-02-02] MEDS ORDERED: HEPARIN (PORCINE) 1000 UNIT/ML 10 ML (CATH LAB USE ONLY) ONE (16:58)
[2019-02-02] MEDS ORDERED: NiCARDipine HCL INJ 2.5 MG/ML 10 ML AMP ONE (16:58)
[2019-02-02] MEDS ORDERED: NITROGLYCERIN/D5W 100MCG/ML 20ML SYR ONE (16:59)
[2019-02-02] MEDS ORDERED: NITROGLYCERIN/D5W 100MCG/ML 250 ML IV SCH ×2 (18:00→21:10)
[2019-02-02] MEDS ORDERED: CLOPIDOGREL BISULFATE 300 MG TAB ONE (18:43)
--- NOTE | 2019-02-02 19:25 | Pre Anesthesia Assessment ---
Date of Service February 02, 2019 Pre Sedation Assessment Vital Signs Temp Pulse Pulse Resp BP BP Pulse Ox 02/02/19 19:22 58 L 18 165/88 H 94 02/02/19 19:08 37 C 59 L 20 156/89 H 92 02/02/19 16:55 37.1 C 77 18 152/82 H 94 02/02/19 15:11 58 L 18 146/65 H 02/02/19 15:00 37.0 C 57 L 18 131/70 94 02/02/19 12:02 36.8 C 72 20 151/83 H 93 02/02/19 09:46 37 C 56 L 18 128/75 92 02/02/19 08:41 58 L 18 147/77 H 94 02/02/19 07:37 64 20 149/83 H 95 02/02/19 06:30 64 18 149/83 H 94 02/02/19 06:14 95 02/02/19 06:04 36.7 C 76 18 124/90 92 Cardiovascular RRR, no murmur, no edema Respiratory normal respiratory effort, lungs clear to auscultation Pre-Sedation Airway Assessment Smoking Status: Former smoker Hx Sleep Apnea: No Hx Difficult Intubation: No Short, Thick Neck: No Thyromental Distance: > or= 3.5 Finger Breadths Oral Cavity: + Dental Abnormalities Mallampati Class: III Procedure Planning Contraindications for Sedation: none Current Medications Reviewed: Yes Notes The planned sedation has been discussed with the patient. Informed Consent was obtained. I have identified the patient, determined the appropriateness of sedation and have assessed the patient immediately prior to the procedure. All medicine(s) and interventions are by my order.
--- NOTE | 2019-02-02 19:26 | Post Anesthesia Assessment ---
Date of Service February 02, 2019 Post Sedation Assessment Vital Signs Temp Pulse Pulse Resp BP BP Pulse Ox 02/02/19 19:22 58 L 18 165/88 H 94 02/02/19 19:08 37 C 59 L 20 156/89 H 92 02/02/19 16:55 37.1 C 77 18 152/82 H 94 02/02/19 15:11 58 L 18 146/65 H 02/02/19 15:00 37.0 C 57 L 18 131/70 94 02/02/19 12:02 36.8 C 72 20 151/83 H 93 02/02/19 09:46 37 C 56 L 18 128/75 92 02/02/19 08:41 58 L 18 147/77 H 94 02/02/19 07:37 64 20 149/83 H 95 02/02/19 06:30 64 18 149/83 H 94 02/02/19 06:14 95 02/02/19 06:04 36.7 C 76 18 124/90 92 Recovery Score Activity: Moves 4 extremities Respiration: Deep Breath/Cough Circulation: +/-20% PreAnes Value Consciousness: Fully Awake Oxygen Saturation: O2 needed for >90% Discharge Sedation Level of Care: Fast Track Phase II Post Sedation Plan On clinical assessment, the patient appears to have tolerated the sedation without complications. Patient is recovering as anticipated. Patient will continue to be monitored by nursing and may be discharged when sedation discharge criteria are met per below protocol. Upon Completions of procedure and additional 15 minutes continue every 5 minute vital signs and the P.A.R. score; then discharge to a Phase I or Fast Track to Phase II per the following guidelines: * Discharge Patient to appropriate Phase II area if PAR is 8 or greater or return to pre- procedure baseline. The post - procedure orders will be as directed. * If PAR score is less than 8 or not return to pre-procedure baseline then patient will follow Phase I monitoring till PAR is reached for Phase II. The Phase I may be done in procedure room or may call to secure a Phase I area. * If naloxone or flumazenil are used for reversal, hold in Phase I for continued monitoring from when last reversal dose was given for a minimum of 60 minutes or longer pending the nurse and/or physician discretion of patient condition before discharge to Phase II. Please call the Sedation Physician to re-evaluate and complete post-note for discharge to Phase II area. Do NOT discharge from procedure sedation or Phase 1 until post- sedation evaluation note is complete by procedure /sedation MD Sedation Discharge Instructions to be given to the patient at discharge to home.
--- NOTE | 2019-02-02 19:32 | Cardiac Catheterization ---
Cardiac Cath Procedure Full Procedure Date February 02, 2019 Pre-Procedure Diagnosis Pre-Procedure Diagnosis: Non STEMI AUC Score AUC Score: 8 Post-Procedure Diagnosis Post-Procedure Diagnosis: Severe CAD, Successful PCI and Normal Intracardiac Pressures Procedure(s) Performed Procedure(s) Performed: Coronary Angiography, Left Heart Cath, PTCA and Bypass Graft Angiography Training Engineer iMkhail Brito MD Photographic Hand Developer(s) Andres Estimated Blood Loss Estimated Blood Loss: 15 Medication(s) Medication(s): Clopidogrel, Fentanyl, Heparin, Lidocaine 1%, Nicardipine, Nitroglycerin and Versed Summary of Findings Indication: High risk NSTEMI Access: 6 Fr left radial artery Catheters: JR4, JL4, DAY Findings: LM -calcified, 70% distal stenosis LAD -moderate diffuse proximal to mid segment disease. Gives off to moderate caliber diagonals without significant disease. Competitive flow in mid segment after second diagonal. Circumflex -20 to 30% ostial stenosis, proximal mid luminal irregularities, OM 2 small to moderate caliber with 100% acute occlusion in the midsegment. RCA -occluded proximally LANCE to LAD widely patentno significant disease distal to anastomosis, retro- fills back into mid segment SVG to OM 3 widely patentmild anastomotic disease, retro-fills into superior branch of OM 3 SVG to right PDA widely patentretro-fills into right PLB's. LVEDP - 13 -- PCI -- Antithrombotic therapy: Heparin, clopidogrel Procedure: Left main cannulated with EBU 3.75 guide Whisper wire passed into OM 2 and across acute occlusion into distal vessel Mid OM 2 lesion dilated with 2.0 compliant balloon Post angioplasty minimal residual stenosis, MARCELINO-3 flow and no apparent cardiac complications. Decision made to forego attempt at stenting in the setting of severe distal left main disease, angulated takeoff of circumflex and small caliber of OM 2. Arterial Closure: TR band Summary: 1. Severe enterprise multivessel coronary artery disease -70% distal left main Occluded proximal RCA Chronic occlusion of proximal OM 3 Acute 100% occlusion of mid OM 2 2. Widely patent bypass grafts, LANCE to LAD, SVG to OM 3, SVG to right PDA. 3. Normal intracardiac filling pressure 3. Successful balloon angioplasty of acutely occluded OM 2 with 2.0 balloon. 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 In the setting of SD continue DAPT for at least one year Guideline directed medical therapy for ischemic cardiomyopathy Continue statin, and ASCVD risk factor modification Consult cardiac Rehab Hemodynamics Rest Ao:: 125/64/88 Final Ao: 150/69/11 LV: 142/13 Recommendations Recommendations: PCI without planned CABG Specimens Specimens: None Radiation Exposure (mGy) 3664 Contrast (mls) 150 Fluids (cc crystalloids) Fluids (cc crystalloids): 17 Drains Drains: None Anesthesia Moderate Procedural Complication(s) None Disposition PCU ACC Data: Paper Carrier Cardiac Status Clinical evaluation leading to the procedure CAD Presenation: Non STEMI Anginal Classification: CCS IV Cardiogenic Shock within 24 Hours: No Cardiac Arrest within 24 Hours: No Imaging Studies Past 6 Months: Yes Stress Studies Past 6 Months: No Diagnostic Physicians Name: Mikhail Brito MD Status: Elective Closure Device Percutaneous Entry Location: Radial Closure Device: Radial Band Recommendations: PCI without planned CABG PCI Indication: PCI for high risk Non-SUELLEN Lesion Segment Name: OM2 Culprit Artery: Yes Stenosis Prior to Rx (%): 100 Chronic Total Occlusion: No IVUS: No FFR: No Pre-Procedure MARCELINO Flow: 0 Previously Treated Lesion: No Lesion Complexity: Non-High/Non-C Lesion Length (mm): 12 Thrombus Present: Yes Bifurcation Lesion: No Guidewire Across Lesion: Stenosis Post-Procedure (%): 0 Post-Procedure MARCELINO Flow: 3 Devices(s) Deployed: No Yes Intraprocedure Events Significant Disection: No Perforation: No
[2019-02-02] MEDS ORDERED: CALCIUM CARBONATE 500 MG CHEWABLE TAB PO PRN (19:34)
[2019-02-02] MEDS ORDERED: PANTOprazole 40 MG TAB PO STA (19:43)
[2019-02-02] MEDS ORDERED: SODIUM CHLORIDE 0.9% 1000ML 1,000 ML IV SCH (19:45)
[2019-02-02] MEDS: INSULIN GLARGINE SOLOSTAR 100 UNITS/ML 3 ML PEN SC SCH (21:28)
[2019-02-02] MEDS ORDERED: HYDROCODONE/ACETAMOPHEN 5/325MG TAB PO STA (23:14)
[2019-02-02] MEDS ORDERED: ONDANSETRON INJ 2 MG/ML 2 ML VIAL IV PRN (23:49)
[2019-02-02] MEDS ORDERED: ONDANSETRON INJ 2 MG/ML 2 ML VIAL ONE (23:50)
[2019-02-03] MEDS: ACETAMINOPHEN 325 MG TAB PO PRN (01:48)
[2019-02-03] MEDS: LEVOTHYROXINE SODIUM 200 MCG TABLET PO SCH (05:57)
[2019-02-03 06:41] LABS: Hematocrit (blood only) 44.2 % (42-52); Hemoglobin 15.3 g/dL (14.0-18.0); Mean Corpuscular Hgb Conc 34.6 g/dL (32-36); Mean Corpuscular Volume 98.7 fL (80-100); Mean Platelet Volume 11.5 fL (7.4-10.4); Platelet Count 165 K/uL (130-400); RDW Coefficient of Variation 13.2 % (11.5-14.5); RDW Standard Deviation 47.7 fL (36.4-46.3); Red Blood Count 4.48 M/uL (4.7-6.1); White Blood Count 10.69 K/uL (4.8-10.8)
[2019-02-03 07:14] LABS: BUN Creatinine Ratio 18.5 (10-20); Calcium 8.6 mg/dl (8.5-10.1); Creatinine Clr Calc Pharmacy 86.3 ml/min; Est GFR (African American) 87.4; Est GFR (Non-African American) 75.4; Magnesium 1.9 mg/dl (1.8-2.4); Potassium 4.2 mmol/L (3.5-5.1)
[2019-02-03 07:28] LABS: Estimated Average Glucose 154 mg/dl
--- NOTE | 2019-02-03 07:42 | Hospitalist Progress Note ---
Date of Service February 03, 2019 Assessment & Plan (1) NSTEMI (non-ST elevated myocardial infarction): EKG on admission showed 2mm ST depressions in V2-V4 which are new from priors. Initial troponin was 0.17 to 5.6 on repeat. - On ASA - Heparin gtt pre cath -did stop nitro gtt Dr Brito did PCI of O2 with preserved bypass grafts but significant houlton disease (2) Leukocytosis: WBC elevated to 15 on admission. No focal signs of infection. CXR on 02/02 showed some mild congestive heart failure, - Possibly reactive from NSTEMI -with increased cough and change in color of mucus, will have start on po antibiotics for azithromycin recheck CXR (3) Hypertension: - Continue home beta-keaton, ACEi (4) Diabetes: No A1c in charts. - A1c 7 - Continue home Lantus insulin - Sliding scale insulin (5) Hypothyroid: TSH was 1.8 on 02/02/2019. No signs/symptoms of hypo-/hyperthyroidism. - Continue home Synthroid 200 mcg (6) DVT prophylaxis: heparin sc Subjective pt has had headache since starting nitro gtt, the pt has had no further chest pain since angioplasty, I personally spoke with cardiology and is ok to stop nitro gtt. Since he as had an elevation of troponin will have a 48 hour hospital stay. Review of Systems Review of Systems: ROS: well nourished well developed. Complains of bifrontal headache No double vision blurry vision No problems with speech or swallowing No palpitations, chest pain or pressure This is some baseline shortness of breath No abdominal pain nausea vomiting diarrhea No burning urine urine frequency or changes in color No focal joint pain or muscle pain No skin rashes or oral lesions No unusual bruising or bleeding No focused back pain or numbness or loss of strength No changes in memory or confusion Physical Exam Physical Exam: The patient appeared well nourished and normally developed. Vital signs as documented. Head exam is unremarkable. normocephalic, atraumatic Neck is without jugular venous distension, thyromegaly, or lymphademopathy Lungs are with poor air movement some tachypnea but no wheezes Cardiac exam reveals Rhythm is regular. No rubs gallops minor systolic murmur heard Abdominal exam reveals normal bowel sounds, no masses, no organomegaly Extremities are mildly edematous and both pedal pulses are present Neurologic exam is A&Ox3, no focal deficits, strength is equal bilateral Psychologically seems neither anxious or depressed Skin is warm Dry without bruises or lesions Results & Data Vital Signs (Past 12 Hours) Vital Signs Temp Pulse Resp BP Pulse Ox 02/03/19 03:11 36.6 C 62 20 140/69 92 02/02/19 23:40 37.1 C 84 18 130/78 93 02/02/19 22:50 73 18 115/55 L 93 02/02/19 21:50 37.2 C 66 18 128/69 91 02/02/19 20:52 80 18 144/78 H 93 02/02/19 20:19 64 18 134/79 95 02/02/19 19:50 37.1 C 61 20 155/81 H 96
[2019-02-03] MEDS: TRAMADOL HCL 50 MG TABLET PO PRN (08:10)
[2019-02-03] MEDS: ATORVASTATIN 10 MG TAB PO SCH (08:11)
[2019-02-03] MEDS: CLOPIDOGREL BISULFATE 75 MG TAB PO SCH (08:11)
[2019-02-03] MEDS: ASPIRIN 81 MG ECTAB PO SCH (08:11)
[2019-02-03] MEDS: METOPROLOL SUCC 50MG EXT REL TAB PO SCH (08:11)
[2019-02-03] MEDS: PANTOprazole 40 MG TAB PO SCH (08:11)
[2019-02-03] MEDS: BUDESONIDE/FORMOTEROL FUMARATE 160/4.5 60 PUFFS/INHALER INH SCH ×2 (08:11→20:59)
[2019-02-03] MEDS: FLUTICASONE PROPIONATE NA SPR 16 GM BTL SCH (08:12)
[2019-02-03] MEDS: INSULIN ASPART 100 UNITS/ML 3 ML PEN SC SCH ×4 (08:13→21:01)
[2019-02-03] MEDS: PREGABALIN 75 MG CAP PO SCH ×2 (08:15→21:03)
[2019-02-03] MEDS: DOCUSATE SODIUM 100 MG CAP PO SCH ×2 (11:56→20:59)
[2019-02-03] MEDS ORDERED: AZITHROMYCIN 250 MG TAB PO ONE (12:20)
--- NOTE | 2019-02-03 12:39 | Cardiology Progress Note ---
Date of Service February 03, 2019 Assessment & Plan (1) NSTEMI (non-ST elevated myocardial infarction): The patient's troponin peaked at 73.6. The patient had a POBA of the 2nd obtuse marginal branch yesterday by Dr. Brito. Recommend dual anti-platelet therapy for 1 year. (2) CAD (coronary artery disease): The patient underwent a 3 vessel bypass in December 2014 at [facility]. Cardiac catheterization yesterday noted patent grafts (LANCE to the LAD, SVG to OM3, an SVG to a right PDA. (3) Ischemic cardiomyopathy: Ventricular ejection fraction severely reduced at 20-25%. There is an inferior and inferolateral motion abnormality. Patient is stable metoprolol succinate. Have discussed the addition of losartan to his regimen with Dr. Lam. (4) Hypertension: Adequate control on current medical regimen. (5) Hypercholesterolemia: On low-dose atorvastatin. Subjective The patient is resting comfortably the bedside chair without complaints of chest pain or dyspnea. Slept poorly last night due to a nitroglycerin headache. Physical Exam Physical Exam: General is an obese male seated bedside chair complaints. HEENT exam is negative. Is upstrokes. There are carotid bruits. Jugular pressure is flat degrees. Cardiovascular exam reveals a regular rhythm with distant heart sounds. No obvious. S3. Lungs note decreased sound bases rales, wheezes abdomen is obese without bruits. Extremities reveal trace pretibial edema. Radial pulses intact. Dressing over left radial artery is dry. Results & Data Vital Signs (Past 12 Hours) Vital Signs Temp Pulse Resp BP Pulse Ox 02/03/19 11:43 37.6 C H 83 18 146/82 H 94 02/03/19 07:58 37.1 C 74 18 175/75 H 93 02/03/19 03:11 36.6 C 62 20 140/69 92 Laboratory Results radiation monitor noted several episodes brief, nonsustained ventricular t achycardia.
[2019-02-03] MEDS: LOSARTAN POTASSIUM 25 MG TAB PO SCH (12:42)
[2019-02-03] MEDS ORDERED: DOCUSATE SODIUM 100 MG CAP PO ONE (20:13)
[2019-02-03] MEDS: HEPARIN SOD 5,000 UNIT/0.5 ML VIAL SQ SCH (20:59)
[2019-02-03] MEDS: INSULIN GLARGINE SOLOSTAR 100 UNITS/ML 3 ML PEN SC SCH (20:59)
[2019-02-04 04:43] VITALS: TEMP 98.8
[2019-02-04] MEDS: LEVOTHYROXINE SODIUM 200 MCG TABLET PO SCH (05:49)
[2019-02-04 07:28] VITALS: BP 135/87; PULSE 88; O2SAT 91
[2019-02-04 08:12] LABS: BUN Creatinine Ratio 15.8 (10-20); Calcium 9.1 mg/dl (8.5-10.1); Creatinine Clr Calc Pharmacy 91.1 ml/min; Est GFR (African American) 95.4; Est GFR (Non-African American) 82.3; Potassium 4.2 mmol/L (3.5-5.1)
[2019-02-04] MEDS ORDERED: AZITHROMYCIN 250 MG TAB PO SCH (09:00)
[2019-02-04] MEDS: CLOPIDOGREL BISULFATE 75 MG TAB PO SCH (09:08)
[2019-02-04] MEDS: METOPROLOL SUCC 50MG EXT REL TAB PO SCH (09:08)
[2019-02-04] MEDS: ATORVASTATIN 10 MG TAB PO SCH (09:08)
[2019-02-04] MEDS: PANTOprazole 40 MG TAB PO SCH (09:08)
[2019-02-04] MEDS: LOSARTAN POTASSIUM 25 MG TAB PO SCH (09:09)
[2019-02-04] MEDS: ASPIRIN 81 MG ECTAB PO SCH (09:09)
[2019-02-04] MEDS: BUDESONIDE/FORMOTEROL FUMARATE 160/4.5 60 PUFFS/INHALER INH SCH (09:09)
[2019-02-04] MEDS: FLUTICASONE PROPIONATE NA SPR 16 GM BTL SCH (09:09)
[2019-02-04] MEDS: DOCUSATE SODIUM 100 MG CAP PO SCH (09:10)
[2019-02-04] MEDS: INSULIN ASPART 100 UNITS/ML 3 ML PEN SC SCH (09:10)
[2019-02-04] MEDS: PREGABALIN 75 MG CAP PO SCH (09:13)
[2019-02-04] MEDS: HEPARIN SOD 5,000 UNIT/0.5 ML VIAL SQ SCH (09:13)
[2019-02-04] MEDS: TRAMADOL HCL 50 MG TABLET PO PRN (09:19)
--- NOTE | 2019-02-04 15:51 | Discharge Summary ---
Date of Service February 04, 2019 Admission HPI Per Admitting Provider 73yo M w/ hx of CABG in 12/2014 and no subsequent stenting or stress testing who presents for chest pain. Per patient, the pain began around 3am and awoke him from sleep. It progressed from a sharp to a aching/pressure pain over the course of several hours, with radiation to the shoulder and around the back. He reports some mild nausea, but otherwise denies any shortness of breath, dizziness, sweatiness or diaphoresis. He took an aspirin and a beta-keaton this morning without improvement. He received 6 nitro pills and some sprays in the ambulance to the hospital. In the ED, he got fentanyl which relieved the pain. Principal Diagnosis unstable angina acute mi pci of Obtuse marginal bronchitis Discharge Exam Constitutional well developed and average body habitus Eyes no conjunctival abnormality and no scleral abnormality Neck normal visual inspection and trachea midline Respiratory normal respiratory effort; no respiratory distress Auscultation: lungs clear to auscultation bilaterally Cardiovascular RRR, no murmur, no edema Gastrointestinal (Abdomen) normal bowel sounds, soft, nontender, no hepatosplenomegaly Musculoskeletal no cyanosis or clubbing, extremities motor strength 5/5 Discharge Data Allergies Allergy/AdvReac Type Severity Reaction Status Date / Time amoxicillin AdvReac Mild UPSET Verified 02/02/19 06:23 STOMACH clavulanic acid AdvReac Mild UPSET Verified 02/02/19 06:23 STOMACH Consultations 02/02/19 07:19 ED Decision to Admit Stat 02/02/19 09:10 Consult Cardiology Routine 02/02/19 19:47 Consult Cardiac Rehabilitation Routine Procedures Performed Operation Date: 02/02/19 12:15 Actual Procedures p Cath, Left w/Cors Vent Grafts - Ismael Brito MD s Cineradiography w/Routine Exam - Ismael Brito MD s POBA SGL Vessel - Ismael Brito MD Ordered Studies 02/02/19 12:16 CL Cath Imgs for PACS use only Routine Hospital Course (1) NSTEMI (non-ST elevated myocardial infarction): EKG on admission showed 2mm ST depressions in V2-V4 which are new from priors. troponin peaked in the 70's - On ASA/plavix strating losartan in place of benazapril [facility] did PCI of O2 with preserved bypass grafts but significant [place] disease (2) Leukocytosis: WBC elevated to 15 on admission. No focal signs of infection. CXR on 02/02 showed some mild congestive heart failure, - Possibly reactive from NSTEMI -with increased cough and change in color of mucus, will have start on po antibiotics for azithromycin (3) Hypertension: - Continue home beta-keaton,ARB (4) Diabetes: No A1c in charts. - A1c 7 - Continue home Lantus insulin - Sliding scale insulin (5) Hypothyroid: TSH was 1.8 on 02/02/2019. No signs/symptoms of hypo-/hyperthyroidism. - Continue home Synthroid 200 mcg Total Time Total Time Spent Total Time Spent (In Minutes): greater than 30 minutes were required to prepare discharge Discharge Plan Discharge Items Patient Disposition: Home - Self-Care Reason For Visit: CHEST PAIN Discharge Diagnosis: unstable angina with angioplasty to [place] coronary artery mild heart attack bronchitis Discharge Goals: Decrease discomfort and Diagnostic testing Activity: Resume your previous activity Non-emergency contact: Primary Care Provider and Airplane Electrician Call non-emergency contact if: you have any medication questions Follow-up/Referrals: Mark Ashley MD [Physician] - Juan Carr [Primary Care Provider] - Diet: Heart Healthy Addtl Provider Instructions: please continue be aware of any cardiac symptoms and return to ER if chest pain recurrs you should be on both aspirin and plavix for one year, there is an addition of a new Blood pressure medicine aimed at maximizing your hearts function and improving healing from recent heart attack. Stopping your benazapril and starting losartan you will be given the remainded of an antibiotic to treat your bronchitis Prescriptions: New azithromycin [Zithromax] 250 mg Tablet 250 mg PO QAM Qty: 3 RF: 0 clopidogrel 75 mg Tablet 75 mg PO QAM Qty: 90 RF: 3 losartan 25 mg Tablet 25 mg PO QAM Qty: 3 RF: 5 Continued aspirin 81 mg Tablet,Delayed Release (Dr/Ec) 81 mg PO DAILY RF: 0 atorvastatin 10 mg Tablet 10 mg PO DAILY RF: 0 azelastine 137 mcg (0.1 %) Aerosol,[place] 2 spray INTRANASAL DAILY RF: 0 fluticasone propionate 50 mcg/actuation [place],Suspension 2 spray INTRANASAL DAILY RF: 0 levothyroxine 200 mcg Tablet 200 mcg PO DAILY RF: 0 omeprazole 20 mg Tablet,Delayed Release (Dr/Ec) 20 mg PO DAILY RF: 0 tramadol 50 mg Tablet 50 mg PO BID PRN (Reason: Pain) RF: 0 albuterol sulfate [ProAir HFA] 90 mcg/actuation Hfa Aerosol Inhaler 2 puff INHALATION Q4H PRN (Reason: sob/wheezing) RF: 0 Lyrica 75 mg Capsule 75 mg PO BID RF: 0 celecoxib 200 mg Capsule 200 mg PO DAILY RF: 0 metoprolol succinate 50 mg Tablet Extended Release 24 Hr 50 mg PO DIRECTED RF: 0 Symbicort 160-4.5 mcg/actuation Hfa Aerosol Inhaler 2 puff INHALATION BID RF: 0 Tresiba FlexTouch U-100 100 unit/mL (3 mL) Insulin Pen 16 unit SUBCUT DAILY RF: 0 ergocalciferol (vitamin D2) [Vitamin D2] 50,000 unit Capsule 50,000 unit PO WK RF: 0 levalbuterol HCl 1.25 mg/3 mL Solution For Nebulization 1.25 mg INHALATION DIRECTED PRN (Reason: sob) RF: 0 Discontinued benazepril 5 mg Tablet 5 mg PO DAILY RF: 0 diclofenac sodium 75 mg Tablet,Delayed Release (Dr/Ec) 75 mg PO BID RF: 0 Stand-Alone Forms: Call Back Authorization, [facility] Discharge Orders: Discharge Order (Routine); Ordered 02/04/19 Ordered By: Philippe Lam Admission Data Admit Date/Time: 02/02/19 09:20 Attending Provider: Philippe Lam Admit Provider: Kyle Hodgson Primary Care Provider: Juan Carr Other Providers: Nabor Valdes ; Kyle Hodgson Service: Telemetry Other Interventions: Discharge Summary Assessment (RN) Last Done: 02/04/19 09:43 DC Date/Time DO NOT enter until pt leaves facility: 02/04/19 10:53
== END 2019-02-04 10:53 | disposition home or self-care (01) | DRG 251 ==
LOC: ED 05:59 → 2N 05:59 → SUATTDRO 09:20 → 2S 15:44

== ENCOUNTER 2021-05-12 08:51 | Observation (INO) ==
--- NOTE | 2021-04-29 15:10 | PAT Medication Instructions ---
Medication Instructions Date of Service April 29, 2021 Home Medications Medication Instructions Recorded clopidogrel 75 mg tablet 75 mg PO QAM #90 tab 02/04/19 oxycodone-acetaminophen 5 mg-325 1 tab PO Q4H PRN #20 tab 12/23/ mg tablet (Percocet) albuterol sulfate 90 mcg/actuation aerosol inhaler (ProAir HFA) 2 puff INHALATION Q4H PRN atorvastatin 10 mg tablet 10 mg PO QPM azelastine 137 mcg (0.1 %) nasal spray aerosol 2 spray INTRANASAL BID ergocalciferol (vitamin D2) 1,250 mcg (50,000 unit) capsule (Vitamin D2) 50,000 unit PO WK fluticasone propionate 50 mcg/actuation nasal spray,suspension 2 spray INTRANASAL BID insulin degludec 100 unit/mL (3 mL) subcutaneous pen (Tresiba FlexTouch U-100 insulin) 24 unit SUBCUT QPM metoprolol succinate 50 mg tablet,extended release 24 hr 50 mg PO QAM omeprazole 20 mg tablet,delayed release 20 mg PO QAM clopidogrel 75 mg tablet 75 mg PO QAM escitalopram oxalate 10 mg tablet 10 mg PO QAM levothyroxine 175 mcg tablet 175 mcg PO QAM montelukast 10 mg tablet 10 mg PO QAM sacubitril 49 mg-valsartan 51 mg tablet (Entresto) 1 tab PO BID budesonide-formoterol HFA 160 mcg-4.5 mcg/actuation aerosol inhaler (Symbicort) 2 puff INHALATION QAM oxycodone-acetaminophen 5 mg-325 mg tablet (Percocet) 1 tab PO Q4H PRN tamsulosin 0.4 mg capsule 0.4 mg PO QPM trazodone 100 mg tablet 100 mg PO HS PRN ASK your prescriber and surgeon clopidogrel 75 mg tablet 75 mg PO QAM (in order for spinal anesthesia, clopidogrel/Plavix needs to be stopped 7 days before surgery. Please check if okay with doctor that prescribes this to you) DO NOT take the morning of surgery ergocalciferol (vitamin D2) 1,250 mcg (50,000 unit) capsule (Vitamin D2) 50,000 unit PO WK montelukast 10 mg tablet 10 mg PO QAM sacubitril 49 mg-valsartan 51 mg tablet (Entresto) 1 tab PO BID Take morning of surgery With a small sip of water, OTHERWISE NOTHING TO EAT OR DRINK AFTER MIDNIGHT: albuterol sulfate 90 mcg/actuation aerosol inhaler (ProAir HFA) 2 puff INHALATION Q4H PRN (use if needed; please bring rescue inhaler with you to hospital day of surgery if possible) azelastine 137 mcg (0.1 %) nasal spray aerosol 2 spray INTRANASAL BID fluticasone propionate 50 mcg/actuation nasal spray,suspension 2 spray INTRANASAL BID metoprolol succinate 50 mg tablet,extended release 24 hr 50 mg PO QAM omeprazole 20 mg tablet,delayed release 20 mg PO QAM escitalopram oxalate 10 mg tablet 10 mg PO QAM levothyroxine 175 mcg tablet 175 mcg PO QAM budesonide-formoterol HFA 160 mcg-4.5 mcg/actuation aerosol inhaler (Symbicort) 2 puff INHALATION QAM oxycodone-acetaminophen 5 mg-325 mg tablet (Percocet) 1 tab PO Q4H PRN (okay to take up to 4 hours prior to surgery if needed) Take evening before surgery albuterol sulfate 90 mcg/actuation aerosol inhaler (ProAir HFA) 2 puff INHALATION Q4H PRN(if needed) atorvastatin 10 mg tablet 10 mg PO QPM azelastine 137 mcg (0.1 %) nasal spray aerosol 2 spray INTRANASAL BID fluticasone propionate 50 mcg/actuation nasal spray,suspension 2 spray INTRANASAL BID insulin degludec 100 unit/mL (3 mL) subcutaneous pen (Tresiba FlexTouch U-100 insulin) 24 unit SUBCUT QPM sacubitril 49 mg-valsartan 51 mg tablet (Entresto) 1 tab PO BID oxycodone-acetaminophen 5 mg-325 mg tablet (Percocet) 1 tab PO Q4H PRN (if needed) tamsulosin 0.4 mg capsule 0.4 mg PO QPM trazodone 100 mg tablet 100 mg PO HS PRN (if needed) Other Notes If you have any questions please call us at [phone] or [phone] or [phone] or [phone]
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
[~2021-05-12 08:51] MED LIST changes: +ACETAMINOPHEN 500 MG TAB PO SCH; -ASPI81TA28 PO; -ASTN NAE; -BENA5TAB5 PO; +BUPIVACAINE 0.25% 30 ML VIAL ONE; +BUPIVACAINE 0.5 % 5 MG/1 ML PF 10ML VIAL ONE; +BUPIVACAINE LIPOSOME/PF 266 MG, BUPIVACAINE/EPINEPHRINE 50 ML, SODIUM CHLORIDE 0.9% 30 ... INFIL SCH; -CETI10CA PO; +DEXAMETHASONE SOD INJ 4 MG/ML VIAL ONE; +EPINEPHrine INJ 1 MG/ML AMP ONE; +FAMOTIDINE 20 MG TAB PO SCH; -FLUT0.15; -FLUT1INH7 INH; +GABAPENTIN 300 MG CAP PO SCH; -LEVO200T6 PO; -LPT10 PO; +LR 15ML/HR IV SCH; +LR 60ML/HR IV SCH; -METO25TA56 PO; +METOCLOPRAMIDE HCL 10 MG TABLET PO SCH; +MoRPHine SULFATE PF 1 MG/ML 10 ML AMP/VIAL ONE; -OMEP10CA2 PO; -PROAIR INH; -SITA50TA PO; +TRANEXAMIC ACID 1,000 MG **IV Intra-op IV SCH; -ULT/50 PO; -VERA240C2 PO; -VLT/75 PO; -VTMD PO; -XPNINS125 INH; +ceFAZolin 2000MG 2,000 MG/15 ML SYR IV SCH
--- NOTE | 2021-05-12 09:03 | History & Physical Bridge Note ---
Date of Service May 12, 2021 History & Physical Bridge Note I have examined the patient, reviewed the History & Physical and in the interval since the performance of the History & Physical I have noted the following changes of clinical significance: no changes noted
[2021-05-12] MEDS ORDERED: MIDAZOLAM HCL 1 MG/ML 2ML VIAL ONE ×2 (09:27→09:55)
[2021-05-12] MEDS ORDERED: fentaNYL citrate 100 MCG/2 ML VIAL ONE ×2 (09:27→09:55)
[2021-05-12] MEDS ORDERED: LIDOCAINE 2% 2 ML VIAL/AMP(20MG/ML) INFIL ONE (09:29)
[2021-05-12] MEDS ORDERED: PROPOFOL IV EMULSION 10 MG/ML 20 ML VIAL IV ONE (09:29)
[2021-05-12] MEDS ORDERED: ePHEDrine sulfate 50 MG/ML SYR ONE (09:29)
[2021-05-12] MEDS ORDERED: PHENYLEPHRINE 100MCG/ML 5ML SYR ONE (09:29)
[2021-05-12] MEDS ORDERED: ePHEDrine sulfate 50 MG/ML AMP ONE (10:00)
[2021-05-12] MEDS ORDERED: BUPIVACAINE 0.25% 30 ML VIAL ONE (10:12)
[2021-05-12] MEDS ORDERED: EPINEPHrine INJ 1 MG/ML AMP ONE (10:12)
[2021-05-12] MEDS ORDERED: BUPIVACAINE LIPOSOME 1.3% 266 MG/20 ML VIAL ONE (10:12)
[2021-05-12] MEDS ORDERED: SODIUM CHLORIDE 0.9% PF 50 ML VIAL ONE (10:13)
[2021-05-12] MEDS ORDERED: ATROPINE SULFATE 0.1 MG/ML 10ML SYR IV PRN (10:14)
[2021-05-12] MEDS ORDERED: fentaNYL citrate 100 MCG/2 ML VIAL IV PRN (10:14)
[2021-05-12] MEDS ORDERED: ONDANSETRON INJ 2 MG/ML 2 ML VIAL IV PRN ×2 (10:14→14:09)
[2021-05-12] MEDS ORDERED: ePHEDrine sulfate 50 MG/ML AMP IV PRN (10:14)
[2021-05-12] MEDS ORDERED: VANCOMYCIN HCL 1000MG/20ML VIAL ONE (11:10)
--- NOTE | 2021-05-12 12:45 | Post Operative Brief Note ---
PG Immediate Post Op with CF Date of Surgery May 12, 2021 Pre & Post Diagnosis Operation Date: 05/12/21 10:40 Pre-Op Diagnosis: Right Knee Osteoarthritis, Right Knee Pain Post-Op Diagnosis: Right Knee Osteoarthritis, Right Knee Pain I identified the patient and participated in the time-out.: Yes Procedure Operation Date: 05/12/21 10:40 Actual Procedures p Right Total Knee Arthroplasty(Right) - Alistair Richmond MD Surgeon Alistair Richmond MD Ice Cutter RUBY Cheng Estimated Blood Loss 200 Findings Consistent with Post-Op Diagnosis Specimens Specimen Description: A. right knee bone and tissue Drains Wong Catheter Complications none Disposition Accompanied Patient To Recovery: No
--- NOTE | 2021-05-12 13:27 | XRay Report ---
TWO VIEWS RIGHT KNEE CLINICAL HISTORY: Postoperative examination. FINDINGS: AP and crosstable lateral portable views of the right knee are obtained. A right knee arthr oplasty is in near anatomic alignment. There has been undersurface remodeling of the patella. No acut e fracture is seen. There are expected postoperative changes around the knee including skin clips, so ft tissue edema, and subcutaneous gas. Advanced atherosclerotic calcification is noted in the poplite al artery. IMPRESSION: Expected postoperative changes status post right knee arthroplasty. No acute fracture is seen. ACT 112: Negative or not required by law. Electronically signed by: Antonio Peterson M.D. 05/12/2021 1:26 PM
[2021-05-12] MEDS ORDERED: GLUCAGON FOR INJ 1 MG VIAL SQ PRN (14:09)
[2021-05-12] MEDS ORDERED: MAGNESIUM HYDROXIDE SUSP 30 ML UDC PO PRN (14:09)
[2021-05-12] MEDS ORDERED: GLUCOSE 40% GEL 15 GM TUBE PO PRN (14:09)
[2021-05-12] MEDS ORDERED: ALUMINUM/MAGNESIUM SUSP 30 ML UDC PO PRN (14:09)
[2021-05-12] MEDS ORDERED: NALOXONE HCL 0.4 MG/1 ML VIAL/CARP IV PRN (14:09)
[2021-05-12] MEDS ORDERED: METOCLOPRAMIDE HCL INJ 5 MG/ML 2 ML VIAL IV PRN (14:09)
[2021-05-12] MEDS ORDERED: traZODone HCL 100 MG TAB PO PRN (14:09)
[2021-05-12] MEDS ORDERED: bisacodyL 10 MG SUPP PR PRN (14:09)
[2021-05-12] MEDS ORDERED: GLUCOSE 10 TABS/TUBE PO PRN (14:09)
[2021-05-12] MEDS ORDERED: DEXTROSE 50% 50 ML SYRINGE IV PRN (14:09)
[2021-05-12] MEDS ORDERED: CARBOHYDRATES FOR HYPOGLYCEMIA PO PRN (14:09)
[2021-05-12] MEDS ORDERED: ALBUTEROL HFA 8 GM INHALER INH PRN (15:03)
--- NOTE | 2021-05-12 15:09 | Anesthesiology Progress Note ---
Date of Service May 12, 2021 Anesthesia Post Procedure Vital Signs Vital Signs: Temp Pulse Pulse Resp BP Pulse Ox 05/12/21 14:55 44 L 14 117/63 96 05/12/21 14:40 45 L 14 126/52 L 93 05/12/21 14:25 46 L 12 130/62 94 05/12/21 14:10 46 L 16 112/64 94 05/12/21 13:55 42 L 14 125/61 92 05/12/21 13:45 42 L 16 121/57 L 92 05/12/21 13:35 36.1 C L 43 L 14 116/64 94 05/12/21 13:25 43 L 15 130/53 L 94 05/12/21 13:15 41 L 13 120/59 L 96 05/12/21 13:05 47 L 14 125/57 L 96 05/12/21 12:55 43 L 13 122/58 L 97 05/12/21 12:46 36.0 C L 45 L 45 L 13 108/59 L 91 05/12/21 10:10 36.8 C 47 L 20 143/57 H 96 05/12/21 09:20 37.1 C 56 L 20 157/72 H 95 Transfer of Care Handoff Completed per policy Notes Mental Status: alert / awake / arousable Patient Amnestic to Procedure: Yes Nausea / Vomiting: adequately controlled Pain: adequately controlled Airway Patency, RR, SpO2: stable & adequate BP & HR: stable & adequate Hydration State: stable & adequate Neuraxial Anesthesia: was administered and sensory block is resolving Anesthetic Complications: no major complications apparent and Pt Satisfied with anesthetic care
[2021-05-12] MEDS: ACETAMINOPHEN 500 MG TAB PO SCH ×2 (16:00→23:19)
[2021-05-12] MEDS: KETOROLAC TROMETHAMINE 15 MG/ML VIAL IV SCH ×2 (16:01→21:05)
[2021-05-12] MEDS: AZELASTINE ~ ORDER AWAITING ACTION SCH ×2 (16:38→23:08)
[2021-05-12] MEDS: SODIUM CHLORIDE 0.9% 1000ML 1,000 ML IV SCH ×2 (17:02→23:18)
[2021-05-12] MEDS: ASCORBIC ACID 500 MG TAB PO SCH (18:19)
--- NOTE | 2021-05-12 18:32 | Operative Report ---
Post Operative Report Pre & Post Diagnosis Operation Date: 05/12/21 10:40 Pre-Op Diagnosis: Right Knee Osteoarthritis, Right Knee Pain Post-Op Diagnosis: Right Knee Osteoarthritis, Right Knee Pain I identified the patient and participated in the time-out.: Yes Procedure Operation Date: 05/12/21 10:40 Actual Procedures p Right Total Knee Arthroplasty(Right) - Alistair Richmond MD Surgeon Alistair Richmond MD Siebel Architect RUBY Cheng Estimated Blood Loss 200 Findings Consistent with Post-Op Diagnosis Operative findings failed advanced right knee DJD. He had extensive grade 4 [id number] disease of the medial compartment and more spotty changes of the patellofemoral compartment. Fairly mild disease laterally. Moderate-sized joint effusion. Fluids 550 cc Specimens Right knee sent for pathology. Drains None Anesthesia Type Spinal MAC Complications none Disposition Accompanied Patient To Recovery: No Indications Patient is a 75-year-old gentleman with multiple medical comorbidities had a long history of right knee pain discomfort describes gotten worse over time. Really debilitating him and limiting his ability to maintain an active lifestyle. Has had multiple medical comorbidities and was medically optimized. Patient elected proceed with surgical treatment. Due to the patient's peripheral vascular disease a vascular surgery consult was obtained along with a cardiology consult. They have recommended did not use a tourniquet due to his peripheral vascular disease. Description of Procedure Operative implants consist of: 1. Biomet Vanguard size 70 right posterior stabilized femoral component. 2. Biomet size 75 tibial tray. 3. 10 mm posterior stabilized polyethylene insert. 4. 31 x 8 all polypatella. The patient was taken to the operating, identified, placed on the operating table supine position all contractors were properly padded. IV antibiotics tried by anesthesia team. A spinal anesthetic and abductor canal block had provided in the holding area. No tourniquet was used were placed to do the patient's peripheral vascular disease. The right lower extremities and prepped and draped in usual sterile fashion. An anterior approach to the right knee was then performed through a longitudinal incision centered over the patella. Sharp dissection Through subcutaneous tissue down to the extensor mechanism. Medial parapatellar arthrotomy incision was made. Some subperiosteal dissection was carried out medially but the fat pad was dissected from each patella tendon. Lateral patellofemoral ligament was released. Patella subluxated laterally and the knee was flexed. The osteophytes were taken off distal femur. The ACL and PCL were then released and distal femur the tibia subluxated anteriorly. The external treatment line jig was then placed in the interface the tibia and adjusted 14 mm medially. Proximal tibial cut was made remove about 2 mm of bone from most deficient aspect medial till plateau. Some osteophytes taken off medial and posterior medially. Tibia sized to a size 75. Attention drawn the femur. The distal femur examined the sharp drop with intramedullary canal was suction. A right 6 degree valgus cutting guide was placed. Distal femoral cutting block was pinned in place but distal femoral cut was made to take an additional 3 mm bone off distal femur. The femur was then sized to a size 70. The AP cutting block was pinned parallel to the epicondylar axis which was 3 degrees of exte rnal rotation. Anterior cut, anterior chamfer, posterior cut, posterior chamfer cuts were made. The box cutting guide was placed in just slight lateral box cut was made. The knee was flexed. The remnants of the medial and lateral menisci were excised. The osteophytes were taken off the posterior aspect of femur. A trial femoral component was placed. The tibial tray was pinned in maximum ext ernal rotation and the drill and stem punch were used to create defect in proximal tibia for the tibial tray. The knee was then trialed the 10 mm insert fit most appropriately. Attention drawn the patella. The patella was cleaned of all soft tissues. Patella thickness measured 22 mm in thickness cut down to 13. Was sized to a size 31 patella. The lug holes were drilled for 31 patella. The lateral osteophyte is moved. Patella button was placed. Knee was taken through range of motion patella tracked nicely with no thumbs test. Attention drawn to placing permanent components. All trial components removed. Bone plug was placed in the distal femur limit blood loss. Double batch Palacos G cement was mixed. I did add an additional gram of vancomycin to the cement due to this patient's poor peripheral vascular disease and tends to get multiple scratches and abrasions on his legs. A Biomet DNAnexusguard size 70 right posterior stabilized femoral component, size 75 tibial tray, 10 mm posterior stabilized polyethylene insert, and 31 x 8 all polypatella were then cemented in place. The knee was brought out in full extension total cement hardened. Final cement check was then performed. Pericapsular tissues were injected with a total of 100 cc of combination of 20 cc of Exparel, 30 cc normal saline, 50 cc of quarter percent Marcaine with epinephrine. Patient did receive 1 g tranexamic acid. The wound was once again irrigated. The extensor mechanism closed with combination 1 PDS suture #1 Vicryl suture in [id number] fashion. Extensor mechanism was checked and found to be intact the subcutaneous tissue then closed with 2 Dexon suture in a buried interrupted fashion skin was closed skin kathleen. Leg was then cleaned and dried and sterile dressing both Xeroform, 4 x 4's, sterile cast padding, Efrain bandage applied. Patient then transferred to the recovery room in stable condition. Patient tolerated procedure well and there were no complications. Walker Cheng, my physician field administrative assistant, was present for the entire procedure. His assistance was essential and required for appropriate patient positioning, prepping and draping, surgical exposure, performing the technical details of the operation, placement the implants, closure of the wound, and placement of the sterile bandage. I attest to the content of the Intraoperative Record and any orders documented therein. Any exceptions are noted below.
[2021-05-12] MEDS: HYDROmorphone INJ 0.5 MG/0.5 ML SYR IV PRN ×2 (18:53→23:18)
[2021-05-12] MEDS: ceFAZolin 2000MG 2,000 MG/15 ML SYR IV SCH (18:54)
[2021-05-12] MEDS ORDERED: INSULIN GLARGINE SOLOSTAR 100 UNITS/ML 3 ML PEN SC SCH (21:00)
[2021-05-12] MEDS ORDERED: SENNA 8.6 MG TAB PO SCH (21:00)
[2021-05-12] MEDS ORDERED: TAMSULOSIN HCL 0.4 MG CAP PO SCH (21:00)
[2021-05-12] MEDS ORDERED: ATORVASTATIN 10 MG TAB PO SCH (21:00)
[2021-05-12] MEDS: DOCUSATE SODIUM 100 MG CAP PO SCH (21:06)
[2021-05-12] MEDS: SACUBITRIL-VALSARTAN 49/51 MG TAB PO SCH (21:06)
[2021-05-12] MEDS: FLUTICASONE PROPIONATE NA SPR 16 GM BTL SCH (21:08)
[2021-05-12] MEDS: traMADol HCL 50 MG TABLET PO PRN (23:44)
[2021-05-13] MEDS: KETOROLAC TROMETHAMINE 15 MG/ML VIAL IV SCH ×2 (03:44→09:34)
[2021-05-13] MEDS: ceFAZolin 2000MG 2,000 MG/15 ML SYR IV SCH (03:44)
[2021-05-13] MEDS: traMADol HCL 50 MG TABLET PO PRN (06:28)
[2021-05-13] MEDS: ACETAMINOPHEN 500 MG TAB PO SCH (06:29)
[2021-05-13] MEDS ORDERED: LEVOTHYROXINE SODIUM 175 MCG TABLET PO SCH (06:30)
[2021-05-13 06:36] LABS: Hemoglobin 12.5 g/dL (14.0-18.0); Mean Corpuscular Hemoglobin 32.1 pg (25-34); Mean Corpuscular Hgb Conc 32.9 g/dL (32-36); Mean Corpuscular Volume 97.7 fL (80-100); Mean Platelet Volume 11.4 fL (7.4-10.4); Platelet Count 157 K/uL (130-400); RDW Coefficient of Variation 14.6 % (11.5-14.5); RDW Standard Deviation 52.1 fL (36.4-46.3); Red Blood Count 3.89 M/uL (4.7-6.1); White Blood Count 9.94 K/uL (4.8-10.8)
[2021-05-13 07:03] LABS: BUN Creatinine Ratio 24.5 (10-20); Calcium 8.1 mg/dl (8.5-10.1); Creatinine Clr Calc Pharmacy 83.9 ml/min; Est GFR (African American) 91.7 ml/min; Est GFR (Non-African American) 79.1 ml/min; Potassium 4.4 mmol/L (3.5-5.1)
[2021-05-13] MEDS: HYDROmorphone INJ 0.5 MG/0.5 ML SYR IV PRN ×2 (07:37→12:09)
--- NOTE | 2021-05-13 07:41 | Progress Notes ---
DATE: 05/13/2021. SUBJECTIVE: A 75-year-old gentleman postoperative day 1 from right knee replacement. He is doing qu ite well. Pain is controlled, moderate in nature. No chest pain or shortness of breath. Not feelin g dizzy or lightheaded. OBJECTIVE: VITAL SIGNS: Temperature is 36.6. Vital signs are stable. GENERAL: Physical examination shows a pleasant, elderly male. He is sitting up in his bedside and l ooks quite comfortable. EXTREMITIES: Examination of the right leg reveals the dressing to be clean, dry and intact. He can dorsiflex and plantarflex his foot appropriately. He is neurologically intact. LABORATORY DATA: Hemoglobin 12.5. Hematocrit 38.0. Electrolytes are stable. ASSESSMENT: A 75-year-old gentleman with multiple medical comorbidities, now postoperative day 1 fro m right knee replacement, doing remarkably well. Medically he appears stable. Pain is reasonably co ntrolled. He is neurologically intact. PLAN: 1. DVT prophylaxis include thigh-high TEDs, SCDs, and he is back on his Plavix. Will start that junaid k today. He is also on a baby aspirin once a day. 2. PT, OT, weightbear as tolerated. Right total knee protocol. 3. Pain control, doing pretty well with current pain regimen. 4. Disposition: Plan to discharge to home with some home health later today if doing okay in therap y. Job ID: [id number]
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
[2021-05-13] MEDS: AZELASTINE ~ ORDER AWAITING ACTION SCH (08:30)
[2021-05-13] MEDS: FLUTICASONE PROPIONATE NA SPR 16 GM BTL SCH (08:33)
[2021-05-13] MEDS: ASCORBIC ACID 500 MG TAB PO SCH (08:33)
[2021-05-13] MEDS: DOCUSATE SODIUM 100 MG CAP PO SCH (08:39)
[2021-05-13] MEDS: SACUBITRIL-VALSARTAN 49/51 MG TAB PO SCH (08:40)
[2021-05-13] MEDS ORDERED: METOPROLOL SUCC 50MG EXT REL TAB PO SCH (09:00)
[2021-05-13] MEDS ORDERED: MULTIVITAMIN TAB PO SCH (09:00)
[2021-05-13] MEDS ORDERED: ASPIRIN 81 MG ECTAB PO SCH (09:00)
[2021-05-13] MEDS ORDERED: PANTOprazole 40 MG TAB PO SCH (09:00)
[2021-05-13] MEDS ORDERED: ESCITALOPRAM OXALATE 10 MG TAB PO SCH (09:00)
[2021-05-13] MEDS ORDERED: FLUTICASONE/VILANTEROL 100/25MCG 14 PUFFS/INHALER INH SCH (09:00)
[2021-05-13] MEDS ORDERED: CETIRIZINE HCL 10 MG TABLET PO SCH (09:00)
[2021-05-13] MEDS ORDERED: MONTELUKAST SODIUM 10 MG TABLET PO SCH (09:00)
[2021-05-13] MEDS ORDERED: CLOPIDOGREL BISULFATE 75 MG TAB PO SCH (13:00)
--- NOTE | 2021-05-15 14:24 | Discharge Summary ---
Date of Service May 15, 2021 Discharge Data Consultations 05/12/21 14:09 Consult Cardiology Routine Procedures Performed Operation Date: 05/12/21 10:40 Actual Procedures p Right Total Knee Arthroplasty(Right) - Alistair Richmond MD Hospital Course (1) Status post total right knee replacement: This is a 75 year old patient admitted on 05/12/21 and underwent total knee arthroplasty. He tolerated the procedure well and there were no complications. Transferred to the PACU post op and later to the orthopedic floor for further care. He was given ancef for antibiotic prophylaxis. He was also given COLBY stockings, SCDs, plavix and aspirin for DVT prophylaxis. Hemoglobin, hematocrit, and vital signs were monitored during his hospital stay and remained stable. Did not require any blood transfusions. There were no complications during his hospital stay. By post op day #1 the patient was tolerating a diabetic diet, pain was reasonably controlled with oral pain medicine, and he was participating in physical therapy. On post op day #1 the patient was discharged home and set up with home health care. He was given printed discharge instructions including prescriptions for extra strength tylenol, aspirin, and oxycodone. Continue physical therapy, weight bearing as tolerated. Continue COLBY stockings. Follow up approximately 2 weeks post op or sooner if there are problems or concerns. Coding Level of Care Code None Diagnoses Status post total right knee replacement Z96.651
[2021-05-17] MEDS ORDERED: ERGOCALCIFEROL 50,000 UNITS 1250 MCG CAP PO SCH (09:00)
== END 2021-05-13 13:08 | disposition home health service (06) ==
LOC: PACUINP 08:51 → ASU 08:51 → 3E 16:31
DX: Z91.040 Latex allergy status; Z88.1 Allergy status to other antibiotic agents; E03.9 Hypothyroidism, unspecified; E11.9 Type 2 diabetes mellitus without complications; I10 Essential (primary) hypertension; I25.5 Ischemic cardiomyopathy; Z95.1 Presence of aortocoronary bypass graft; I25.10 Atherosclerotic heart disease of native coronary artery without angina pectoris; J44.9 Chronic obstructive pulmonary disease, unspecified; Z79.899 Other long term (current) drug therapy; Z79.02 Long term (current) use of antithrombotics/antiplatelets; Z95.810 Presence of automatic (implantable) cardiac defibrillator; M17.11 Unilateral primary osteoarthritis, right knee; K21.9 Gastro-esophageal reflux disease without esophagitis; I25.2 Old myocardial infarction; Z79.82 Long term (current) use of aspirin; E66.9 Obesity, unspecified; Z79.890 Hormone replacement therapy

== ENCOUNTER 2023-05-14 05:20 | Inpatient (IN) ==
[2023-05-14] MEDS ORDERED: ONDANSETRON INJ 2 MG/ML 2 ML VIAL IV STA (05:40)
[2023-05-14] MEDS ORDERED: fentaNYL citrate PF 100 MCG/2 ML VIAL IV ONE (05:40)
[2023-05-14 06:19] LABS: Basophils # (auto) 0.04 K/uL (0.00-0.20); Basophils % (auto) 0.2 %; Eosinophils # (auto) 0.03 K/uL (0.00-0.50); Eosinophils % (auto) 0.2 %; Hematocrit (blood only) 46.1 % (42.0-52.0); Hemoglobin 15.6 g/dl (14.0-18.0); Immature Granulocytes # (auto) 0.17 K/uL (0.01-0.20); Immature Granulocytes % (auto) 0.9 %; Lymphocytes # (auto) 0.64 K/uL (1.20-3.40); Lymphocytes % (auto) 3.3 %; Mean Corpuscular Hemoglobin 32.8 pg (25.0-34.0); Mean Corpuscular Hgb Conc 33.8 g/dL (32.0-36.0); Mean Corpuscular Volume 97.1 fL (80.0-100.0); Mean Platelet Volume 11.3 fL (9.4-12.4); Monocytes # (auto) 1.93 K/uL (0.11-0.59); Neutrophils # (auto) 16.57 K/uL (1.40-6.50); Neutrophils % (auto) 85.4 %; Platelet Count 164 K/uL (130-400); RDW Coefficient of Variation 13.7 % (11.5-14.5); RDW Standard Deviation 48.7 fL (36.4-46.3); Red Blood Count 4.75 M/uL (4.70-6.10); White Blood Count 19.38 K/ul (4.8-10.8)
[2023-05-14 06:37] LABS: Albumin Globulin Ratio 1.4 (0.9-2); BUN Creatinine Ratio 17.1 (10-20); Bilirubin,Total 1.2 mg/dl (0.2-1.0); Calcium 9.3 mg/dl (8.6-10.3); Creatinine Clr Calc Pharmacy 50.9 ml/min; Est GFR (African American) 56.6 ml/min; Est GFR (Non-African American) 48.8 ml/min; Globulin 2.8 gm/dl (2.5-4.0); Potassium 4.4 mmol/L (3.5-5.1); Total Protein 6.8 gm/dl (6.0-8.3)
[2023-05-14 06:42] LABS: Troponin I High Sensitivity 23.1 pg/ml (0-20)
[2023-05-14] MEDS ORDERED: LIDOCAINE/EPINEPH/TETRACAINE 1 EA SYR EXT STA (06:55)
[2023-05-14] MEDS ORDERED: SODIUM CHLORIDE 0.9% 1000ML 2,000 ML IV ONE (06:55)
[2023-05-14] MEDS ORDERED: CEFEPIME 2,000 MG/20 ML VIAL IV STA (07:02)
[2023-05-14] MEDS ORDERED: VANCOMYCIN HCL 1,750 MG in SODIUM CHLORIDE 0.9% 500 ML IV ONE (07:07)
[2023-05-14] MEDS ORDERED: VANCOMYCIN CONSULT ACTIVE PRN (07:07)
--- NOTE | 2023-05-14 07:17 | Electrocardiogram Report ---
Test Reason : Blood Pressure : / mmHG Vent. Rate : 084 BPM Atrial Rate : 084 BPM P-R Int : 198 ms QRS Dur : 112 ms QT Int : 402 ms P-R-T Axes : 016 -24 -02 degrees QTc Int : 475 ms Normal sinus rhythm Moderate voltage criteria for LVH, may be normal variant Nonspecific ST abnormality Inferior infarct (cited on or before 31-DEC-2014) Abnormal ECG When compared with ECG of 28-MAR-2023 20:07, Previous ECG has undetermined rhythm, needs review Confirmed by Mikhail Griggs ([id number]) on 05/14/2023 7:16:52 AM Referred By: Confirmed By:Michael Griggs
--- NOTE | 2023-05-14 07:38 | CT Scan Report ---
CT OF THE HEAD WITHOUT CONTRAST CLINICAL HISTORY: Trauma COMPARISON STUDY: Sinus CT July 28, 2017. TECHNIQUE: Helical axial images of the head were obtained without IV contrast. Automated exposure con trol was utilized for the study. A dose lowering technique was utilized adhering to the principles o f ALARA. FINDINGS: No acute intracranial hemorrhage, midline shift or mass effect is present. The ventricular system is unremarkable. The basal cisterns are patent. No extra-axial collections are present. There are no findings to suggest acute dural sinus thrombosis or acute territorial infarct. No significant calvarial abnormalities are present. Visualized portions of the sinuses and mastoid air cells are ledy ar. Bilateral proptosis is incidentally noted. There may be a right supraorbital contusion. There is no acute calvarial fracture. Fluid within the bilateral mastoid air cells is noted. This was shown on prior sinus CT. There is mild ethmoid sinus mucosal thickening. IMPRESSION: 1. No acute intracranial findings. 2. No calvarial fracture. ACT 112: Negative or not required by law. Electronically signed by: Anselmo Tripp M.D. 05/14/2023 7:36 AM
--- NOTE | 2023-05-14 07:39 | CT Scan Report ---
CT OF THE CERVICAL SPINE WITHOUT CONTRAST CLINICAL HISTORY: Trauma COMPARISON STUDY: No previous studies for comparison. TECHNIQUE: Helical axial images of the cervical spine were obtained without IV contrast. Sagittal a nd coronal reconstructions were viewed. Automated exposure control was utilized for the study. A do se lowering technique was utilized adhering to the principles of ALARA. FINDINGS: Alignment of the cervical spine is anatomic. Vertebral body heights are maintained. No acut e cervical spine fracture or subluxation is present. There is no prevertebral edema. Facet joints are intact. There is severe multilevel facet arthrosis. Moderate multilevel disc space narrowing and os teophytosis within the cervical spine is present. IMPRESSION: No acute cervical spine fracture or subluxation. ACT 112: Negative or not required by law. Electronically signed by: Anselmo Tripp M.D. 05/14/2023 7:38 AM
--- NOTE | 2023-05-14 07:49 | XRay Report ---
XR shoulder RT min 2V routine CLINICAL HISTORY: trauma COMPARISON: None FINDINGS: Alignment of the right shoulder is in anatomic. There is no acute fracture. There is moder ate AC joint osteoarthritis. IMPRESSION: No fracture or dislocation within the right shoulder. ACT 112: Negative or not required by law. Electronically signed by: Anselmo Tripp M.D. 05/14/2023 7:48 AM
--- NOTE | 2023-05-14 07:49 | XRay Report ---
XR chest 1V portable CLINICAL HISTORY: trauma COMPARISON STUDY: Chest CT December 01, 2016. Chest radiograph May 04, 2021. FINDINGS: Left subclavian pacer/AICD is in place. There are median sternotomy wires and mediastinal s urgical clips. Cardiomegaly is unchanged. There is no evidence for pulmonary edema. Opacity along the left heart border favors atelectasis. There is no pneumothorax or pleural effusion. Multiple right-s ided rib fractures are noted. The majority of these are likely old. A displaced posterolateral right fifth rib fracture is age indeterminate. IMPRESSION: 1. No pneumothorax. 2. Multiple right-sided rib fractures, likely old. However, the fifth rib fracture is age indetermina te. ACT 112: Negative or not required by law. Electronically signed by: Anselmo Tripp M.D. 05/14/2023 7:47 AM
--- NOTE | 2023-05-14 07:52 | XRay Report ---
XR humerus RT 2V CLINICAL HISTORY: Trauma COMPARISON: None FINDINGS: No acute fracture within the right humerus is identified. Alignment of the right shoulder and right elbow is in anatomic. IMPRESSION: No acute fracture within the right humerus. ACT 112: Negative or not required by law. Electronically signed by: Anselmo Tripp M.D. 05/14/2023 7:51 AM
[2023-05-14 08:43] LABS: Appearance Urine Clear (Clear); Bacteria Urine Automated Negative (Negative); Bilirubin Urine Negative (Negative); Blood Urine 2+ (Negative); Color Urine Dark Yellow; Glucose Urine UA 3+ (Negative); Ketones Urine Negative (Negative); Leukocyte Esterase Urine Negative (Negative); Nitrite Urine Negative (Negative); Protein Urine Trace (Negative); RBC Urine Automated 0-4 /hpf (0-4); Specific Gravity Urine 1.027 (1.000-1.030); Urobilinogen Urine Negative (Negative)
[2023-05-14 09:00] LABS: Adenovirus PCR Not Detected (NotDetected); Bordetella parapertussis PCR Not Detected (NotDetected); Bordetella pertussis PCR Not Detected (NotDetected); Chlamydia pneumoniae PCR Not Detected (NotDetected); Coronavirus 229E PCR Not Detected (NotDetected); Coronavirus CoV-2 (COVID19)PCR Not Detected (NotDetected); Coronavirus HKU1 PCR Not Detected (NotDetected); Coronavirus NL63 PCR Not Detected (NotDetected); Coronavirus OC43PCR Not Detected (NotDetected); Human Metapneumovirus PCR Not Detected (NotDetected); Influenza A PCR Not Detected (NotDetected); Influenza B PCR Not Detected (NotDetected); Mycoplasma pneumoniae PCR Not Detected (NotDetected); Parainfluenza Virus 1 PCR Not Detected (NotDetected); Parainfluenza Virus 2 PCR Not Detected (NotDetected); Parainfluenza Virus 3 PCR Not Detected (NotDetected); Parainfluenza Virus 4 PCR Not Detected (NotDetected); Respiratory Syncytial VirusPCR Not Detected (NotDetected); Rhinovirus/Enterovirus PCR Not Detected (NotDetected)
--- NOTE | 2023-05-14 09:06 | CT Scan Report ---
CT OF THE CHEST WITHOUT IV CONTRAST CLINICAL HISTORY: fall, right rib fracture, cough, fever COMPARISON STUDY: Chest CT December 01, 2016. Chest radiograph performed earlier today. CT DOSE: 835.16 mGy.cm TECHNIQUE: Axial images of the chest were obtained without IV contrast. Images were reviewed in the axial, sagittal, and coronal planes. IV contrast was not administered for this examination. Automat ed exposure control was utilized for the study. A dose lowering technique was utilized adhering to t he principles of ALARA. FINDINGS: There are median sternotomy wires and postoperative findings from bypass grafting. Extensi ve coronary artery calcification is noted. There is no mediastinal hematoma. No pericardial effusion is noted. There is no pneumothorax or pleural effusion. Multifocal airspace opacities within the bila teral lower lobes are noted. There is mild groundglass opacity within the lingula. Central airways ar e patent. No acute thoracic spine fracture is noted. No acute rib fractures are present. There are mu ltiple old right-sided rib fractures. Gallstone within the gallbladder is incidentally noted. There i s no thoracic lymphadenopathy. IMPRESSION: 1. Multifocal airspace opacities within the lower lobes suggestive of pneumonia or aspiration pneumon itis. 2. Multiple old right-sided rib fractures. No acute rib fractures. No pneumothorax. 3. Moderate cardiomegaly and extensive coronary artery calcification. ACT 112: Negative or not required by law. Electronically signed by: Anselmo Tripp M.D. 05/14/2023 9:04 AM
[2023-05-14] MEDS ORDERED: SODIUM CHLORIDE 0.9% 1000ML 500 ML IV ONE (09:30)
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
--- NOTE | 2023-05-14 09:48 | Emergency Department Note ---
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 Electronically signed by: Anselmo Tripp M.D. 05/14/2023 7:47 AM Shoulder X-Ray 05/14/23 05:39 XR shoulder RT min 2V routine CLINICAL HISTORY: trauma COMPARISON: None FINDINGS: Alignment of the right shoulder is in anatomic. There is no acute fracture. There is moderate AC joint osteoarthritis. IMPRESSION: No fracture or dislocation within the right shoulder. ACT 112: Negative or not required by law. Electronically signed by: Anselmo Tripp M.D. 05/14/2023 7:[address] 05/14/23 05:40 CT OF THE CERVICAL SPINE WITHOUT CONTRAST CLINICAL HISTORY: Trauma COMPARISON STUDY: No previous studies for comparison. TECHNIQUE: Helical axial images of the cervical spine were obtained without IV contrast. Sagittal and coronal reconstructions were viewed. Automated exposure control was utilized for the study. A dose lowering technique was utilized adhering to the principles of ALARA. FINDINGS: Alignment of the cervical spine is anatomic. Vertebral body heights are maintained. No acute cervical spine fracture or subluxation is present. There is no prevertebral edema. Facet joints are intact. There is severe m ultilevel facet arthrosis. Moderate multilevel disc space narrowing and osteophytosis within the cervical spine is present. IMPRESSION: No acute cervical spine fracture or subluxation. ACT 112: Negative or not required by law. Electronically signed by: Anselmo Tripp M.D. 05/14/2023 7:[address] 05/14/23 05:40 CT OF THE HEAD WITHOUT CONTRAST CLINICAL HISTORY: Trauma COMPARISON STUDY: Sinus CT July 28, 2017. TECHNIQUE: Helical axial images of the head were obtained without IV contrast. Automated exposure control was utilized for the study. A dose lowering technique was utilized adhering to the principles of ALARA. FINDINGS: No acute intracranial hemorrhage, midline shift or mass effect is present. The ventricular system is unremarkable. The basal cisterns are patent. No extra-axial collections are present. There are no findings to suggest acute dural sinus thrombosis or acute territorial infarct. No significant calvarial abnormalities are present. Visualized portions of the sinuses and mastoid air cells are clear. Bilateral proptosis is incidentally noted. There may be a right supraorbital contusion. There is no acute calvarial fracture. Fluid within the bilateral mastoid air cells is noted. This was shown on prior sinus CT. There is mild ethmoid sinus mucosal thickening. IMPRESSION: 1. No acute intracranial findings. 2. No calvarial fracture. ACT 112: Negative or not required by law. Electronically signed by: Anselmo Tripp M.D. 05/14/2023 7:36 AM Humerus X-Ray 05/14/23 05:55 XR humerus RT 2V CLINICAL HISTORY: Trauma COMPARISON: None FINDINGS: No acute fracture within the right humerus is identified. Alignment of the right shoulder and right elbow is in anatomic. IMPRESSION: No acute fracture within the right humerus. ACT 112: Negative or not required by law. Electronically signed by: Anselmo Tripp M.D. 05/14/2023 7:[address] 05/14/23 08:08 CT OF THE CHEST WITHOUT IV CONTRAST CLINICAL HISTORY: fall, right rib fracture, cough, fever COMPARISON STUDY: Chest CT December 01, 2016. Chest radiograph performed earlier today. CT DOSE: 835.16 mGy.cm TECHNIQUE: Axial images of the chest were obtained without IV contrast. Images were reviewed in the axial, sagittal, and coronal planes. IV contrast was not administered for this examination. Automated exposure control was utilized for the study. A dose lowering technique was utilized adhering to the principles of ALARA. FINDINGS: There are median sternotomy wires and postoperative findings from bypass grafting. Extensive coronary artery calcification is noted. There is no mediastinal hematoma. No pericardial effusion is noted. There is no pneumothorax or pleural effusion. Multifocal airspace opacities within the bilateral lower lobes are noted. There is mild groundglass opacity within the lingula. Central airways are patent. No acute thoracic spine fracture is noted. No acute rib fractures are present. There are multiple old right-sided rib fractures. Gallstone within the gallbladder is incidentally noted. There is no thoracic lymphadenopathy. IMPRESSION: 1. Multifocal airspace opacities within the lower lobes suggestive of pneumonia or aspiration pneumonitis. 2. Multiple old right-sided rib fractures. No acute rib fractures. No pneumothorax. 3. Moderate cardiomegaly and extensive coronary artery calcification. ACT 112: Negative or not required by law. Electronically signed by: Anselmo Tripp M.D. 05/14/2023 9:04 AM Discharge Plan Visit Data Chief Complaint: Fall Stated Complaint: GLF, Hit Head, Shoulder Pain, Flu Like Symptoms ED Provider: Wade Boyer Discharge Problem: Pneumonia, Elevated troponin, Acute hypotension, Fall, CHI (closed head injury) Patient Disposition: Admitted As Inpatient Discharge Instructions Interventions: ED Discharge Assessment Last Done: 05/14/23 10:56
[2023-05-14] MEDS ORDERED: ONDANSETRON INJ 2 MG/ML 2 ML VIAL IV PRN (11:39)
[2023-05-14] MEDS ORDERED: ACETAMINOPHEN 325 MG TAB PO PRN (11:39)
[2023-05-14] MEDS ORDERED: POLYETHYLENE (MIRALAX) 17 GM PACK PO PRN (11:39)
[2023-05-14] MEDS ORDERED: ALBUTEROL HFA 8 GM INHALER INH PRN (11:39)
[2023-05-14] MEDS ORDERED: traZODone HCL 100 MG TAB PO PRN (11:39)
[2023-05-14] MEDS ORDERED: CETIRIZINE HCL 10 MG TABLET PO PRN (11:44)
[2023-05-14] MEDS: PIPERACILLIN/TAZOBACTAM 4.5 GM in DEXTROSE 5% 100 ML IV SCH ×2 (12:44→17:45)
[2023-05-14] MEDS: PIPERACILLIN/TAZOBACTAM 4.5 GM in DEXTROSE 5% 100 ML IV ONE ×2 (12:45→12:58)
[2023-05-14] MEDS ORDERED: CARBOHYDRATES FOR HYPOGLYCEMIA PO PRN (13:01)
[2023-05-14] MEDS ORDERED: DEXTROSE 50% 50 ML SYRINGE IV PRN (13:01)
[2023-05-14] MEDS ORDERED: GLUCAGON FOR INJ 1 MG VIAL SQ PRN (13:01)
[2023-05-14] MEDS ORDERED: GLUCOSE 40% GEL 15 GM TUBE PO PRN (13:01)
[2023-05-14] MEDS ORDERED: GLUCOSE 10 TAB/TUBE PO PRN (13:01)
[2023-05-14] MEDS ORDERED: AZITHROMYCIN 500 MG in DEXTROSE 5% 250 ML IV SCH (14:00)
[2023-05-14] MEDS: LIDOCAINE 5% 1 PATCH TD SCH (14:10)
[2023-05-14] MEDS: INSULIN ASPART PER UNIT CHARGE SC SCH ×2 (17:07→20:30)
[2023-05-14] MEDS ORDERED: traMADol HCL 50 MG TABLET PO PRN (19:22)
--- NOTE | 2023-05-14 19:52 | Pharmacy Report ---
Pharmacy Vanc AUC Short Note - Date of Service May 14, 2023 - Assessment & Plan Assessment 77 year old M receiving VANC/AZITHROMYCIN/PIP-TAZO for treatment of possible pneumonia and EMP use. Pertinent microbiologic data includes: [Positive MRSA Nasal Swab]. Day # 1/2 of antimicrobial therapy. Plan Vancomycin * Vanc 1750mg (20mg/kg) IV load, then maintenance dose 1500mg (15mg/kg) IV q24h * AUC/ZITA is the preferred PK/PD target for vancomycin * AUC guided dosing is effective and associated with decreased risk of nephrotoxicity compared to traditional trough targets * Trough level of 17.1 mcg/mL is predicted to achieve target AUC/ZITA of 400-600 mg/L.hr and may be associated with a 13% risk of nephrotoxicity * Trough or random level to be reassessed if VANC continued beyond 48 hours. Pharmacy will continue to follow and will adjust dose/frequency as necessary. Thank you.
[2023-05-14] MEDS ORDERED: VANCOMYCIN HCL 1,500 MG in SODIUM CHLORIDE 0.9% 500 ML IV SCH (20:00)
[2023-05-14] MEDS: APIXABAN 5 MG TABLET PO SCH (20:09)
[2023-05-14] MEDS: FLUTICASONE PROPIONATE NA SPR 16 GM BTL SCH (20:11)
[2023-05-14] MEDS: AZELASTINE HCL 0.1% NASAL 200 SPRAYS/27,400 MCG BTL SCH (20:11)
[2023-05-14] MEDS ORDERED: LANTUS PER UNIT CHARGE SQ SCH (21:00)
[2023-05-14] MEDS ORDERED: ATORVASTATIN 10 MG TAB PO SCH (21:00)
[2023-05-15] MEDS: PIPERACILLIN/TAZOBACTAM 4.5 GM in DEXTROSE 5% 100 ML IV SCH ×2 (02:36→10:03)
[2023-05-15] MEDS ORDERED: LEVOTHYROXINE SODIUM 175 MCG TABLET PO SCH (06:30)
--- NOTE | 2023-05-15 07:09 | Hospitalist Progress Note ---
Date of Service May 15, 2023 Assessment & Plan (1) Aspiration pneumonia: Plan: Recently with cough and noted subjective SOB at home, day prior had been dry- walling and overall feeling well At home with weakness and fall Biofire negative CT Chest this admit with multifocal airspace opacities within the lower lobes suggestive of pneumonia or aspiration pneumonitis BCx collected in ER, and received vanc/cefepime by ER provider Given Zosyn/azithromycin with speech consult for possible aspiration MRSA nares POSITIVE, continue vancomycin (2) Severe sepsis: Plan: WBC count 19 with left shift, procal detectable but not elevated, fever per EMS but no recorded fever in hospital Received total of 2500cc IVF by ER provider, did not receive full 30mL/kg IVF due to HFrEF, BP stabilized, defer further IVF for now in favor of oral intake Sepsis has resolved (3) Elevated troponin: Plan: Elevated 20 -> 54 -> 67.5, no chest pain, EKG without ST/ T wave changes from chronic findings Demand ischemia in the setting of hypoxia/sepsis in patient with Hx ischemic cardiomyopathy (4) Fall: Plan: Fall, fortunately without any acute fractures on C spine CT, chest XR, shoulder/humerus XRays Chronic right rib fractures noted on CT Chest Complaints mostly of right shoulder pain, lidocaine patches and Tylenol ordered (5) CHI (closed head injury): Plan: On blood thinners chronically, CT head fortunately without bleeding Monitor CBC and mental status, very sleepy yesterday due to pain medication given in ER vs. acute infection (6) Ribs, multiple fractures: Plan: Chronic fractures on right side per CT Chest, no flail chest, no pneumothorax Tylenol/lidocaine as above, with home tramadol for breakthrough pain (7) Diabetes: Plan: Insulin dependent Continue basal /bolus insulin with adjustments as necessary based qACHS checks (8) Ischemic cardiomyopathy: Plan: History of, EF 25-30%, also with Hx PAD On Eliquis, statin, Entresto, metoprolol Eliquis morning dose not given today due to head trauma, resume this evening Monitor fluid status closely, patient not on diuretics outpatient and received large volume fluid resuscitation for sepsis, is back on room air and does not appear fluid overloaded (9) DVT (deep venous thrombosis): Plan: Diagnosed 03/28/2023, has been on Eliquis, continue this (will have to determine if he should be on any concurrent antiplatelet agents for CAD Hx) Plan PT and OT evaluations, ongoing treatment of PNA with IV Abx, await blood cultures into tomorrow, ultimately anticipate need for placement given significant weakness from baseline Admission and Anticipated Discharge Date Admission Date: May 14, 2023 Results & Data Results & Data Vital Signs (Past 12 Hours) Vital Signs Temp Pulse Pulse Resp BP Pulse Ox O2 Del Method 05/15/23 04:11 36.4 C L 56 L 20 101/56 L 97 Room Air 05/15/23 02:50 Room Air 05/14/23 23:10 53 L 05/14/23 22:57 36.6 C 54 L 20 104/55 L 91 Room Air 05/14/23 19:53 36.6 C 53 L 16 102/54 L 94 Room Air PG Care Time/CCT Total # of Minutes Spent Total Time Spent with Patient: Total time spent is greater than 50% in coordination of care (as documented) at patient's floor/unit and/or counseling patient: Coding Diagnoses Aspiration pneumonia J69.0 Severe sepsis A41.9; R65.20 Elevated troponin R77.8 Fall W19.XXXA CHI (closed head injury) S09.90XA Ribs, multiple fractures S22.49XA Diabetes E11.9 Ischemic cardiomyopathy I25.5 DVT (deep venous thrombosis) I82.409
[2023-05-15 08:02] LABS: Basophils # (auto) 0.03 K/uL (0.00-0.20); Basophils % (auto) 0.3 %; Eosinophils # (auto) 0.27 K/uL (0.00-0.50); Eosinophils % (auto) 2.4 %; Hematocrit (blood only) 44.3 % (42.0-52.0); Hemoglobin 14.6 g/dl (14.0-18.0); Immature Granulocytes # (auto) 0.08 K/uL (0.01-0.20); Immature Granulocytes % (auto) 0.7 %; Lymphocytes # (auto) 1.34 K/uL (1.20-3.40); Lymphocytes % (auto) 11.9 %; Mean Corpuscular Hemoglobin 32.3 pg (25.0-34.0); Mean Platelet Volume 11.3 fL (9.4-12.4); Monocytes # (auto) 1.21 K/uL (0.11-0.59); Monocytes % (auto) 10.7 %; Neutrophils # (auto) 8.34 K/uL (1.40-6.50); Platelet Count 131 K/uL (130-400); RDW Standard Deviation 50.5 fL (36.4-46.3); Red Blood Count 4.52 M/uL (4.70-6.10); White Blood Count 11.27 K/ul (4.8-10.8)
[2023-05-15] MEDS: INSULIN ASPART PER UNIT CHARGE SC SCH ×2 (08:07→11:43)
[2023-05-15] MEDS: APIXABAN 5 MG TABLET PO SCH (08:19)
[2023-05-15] MEDS: FLUTICASONE PROPIONATE NA SPR 16 GM BTL SCH (08:20)
[2023-05-15] MEDS: LIDOCAINE 5% 1 PATCH TD SCH (08:20)
[2023-05-15] MEDS: AZELASTINE HCL 0.1% NASAL 200 SPRAYS/27,400 MCG BTL SCH (08:21)
[2023-05-15 08:22] LABS: Calcium 8.6 mg/dl (8.6-10.3); Est GFR (African American) 64.9 ml/min; Potassium 3.8 mmol/L (3.5-5.1)
[2023-05-15] MEDS ORDERED: PANTOprazole 40 MG TAB PO SCH (09:00)
[2023-05-15] MEDS ORDERED: MONTELUKAST SODIUM 10 MG TABLET PO SCH (09:00)
[2023-05-15] MEDS ORDERED: LANTUS PER UNIT CHARGE SQ SCH (09:00)
[2023-05-15] MEDS ORDERED: FLUTICASONE/VILANTEROL 100/25MCG 14 PUFFS/INHALER INH SCH (09:00)
[2023-05-15] MEDS ORDERED: ESCITALOPRAM OXALATE 20 MG TAB PO SCH (09:00)
[2023-05-15] MEDS ORDERED: METOPROLOL SUCC 50MG EXT REL TAB PO SCH (09:00)
--- NOTE | 2023-05-15 13:22 | Discharge Summary ---
Discharge Summary Date of Service May 15, 2023 Admission HPI Per Admitting Provider 77-year-old male past medical history significant for CAD, GERD, hypothyroidism, diabetes presented to the ER via EMS following a fall in the early hours of the morning. He notes that when he woke up he felt very weak, and per is also had a cough in the recent past. Per EMS he did have a fever, was not febrile on arrival to the ER. In the ER noted to be hypotensive to the 90s, pulse of 50s, requiring supplemental oxygen. Lab work notable for an elevated white blood cell count with a left shift, creatinine 1.4, troponin 23.1, Pro-Sergio 0.1, UA bland, biofire negative. Chest x-ray with multiple right-sided likely old/subacute rib fractures. CT chest with evidence of likely aspiration pneumonia versus pneumonitis. Patient received a total of 2 L of normal saline in the ER as well as vancomycin and cefepime, and blood cultures were collected. On my interview patient endorses SOB this AM but not right now, complaint is right shoulder pain. Denies chest pain, nausea, abdominal pain. Admission Exam Per Admitting Provider Constitutional: WD/WN, vitals as above Respiratory: normal respiratory effort, lungs clear to auscultation Cardiovascular: RRR, no murmur, no edema Gastrointestinal (Abdomen): normal bowel sounds, soft, nontender, no hepatosplenomegaly Skin: ecchymosis and abrasions over right forehead/eye, left forearm, some swelling to right shoulder Psychiatric: A+Ox3, euthymic affect Principal Dx & Hospital Course #1 = Principal Diagnosis (1) Aspiration pneumonia: Recently with cough and noted subjective SOB at home, day [employer] had been dry- walling and overall feeling well At home with weakness and fall in the setting of likely acute infection Biofire negative CT Chest this admit with multifocal airspace opacities within the lower lobes suggestive of pneumonia or aspiration pneumonitis BCx collected in ER, and received vanc/cefepime by ER provider MANUFACTURER'S SERVICE REPRESENTATIVE evaluated patient, no evidence of aspiration on their assessment, could consider swallow eval in the future MRSA nares POSITIVE, however given rapid recovery in symptoms over 12-18 hours, and imaging findings suggesting possible aspiration, I am less suspicious of MRSA pneumonia and so discharged patient on cefdinir/doxycycline with return precautions. Should symptoms worsen again patient may need MRSA coverage (2) Severe sepsis: WBC count 19 with left shift improved to 11 on day of discharge, procal detectable but not elevated, fever per EMS but no recorded fever in hospital Received total of 2500cc IVF by ER provider, did not receive full 30mL/kg IVF due to HFrEF, BP stabilized, deferred further fluids in favor of oral intake Sepsis has resolved (3) Elevated troponin: Elevated 20 -> 54 -> 67.5, no chest pain or anginal equivalents, EKG without ST/ T wave changes from chronic findings Demand ischemia in the setting of hypoxia/sepsis in patient with Hx ischemic cardiomyopathy (4) Fall: Fall, fortunately without any acute fractures on C spine CT, chest XR, shoulder/humerus XRays Chronic right rib fractures noted on CT Chest Complaints mostly of right shoulder pain, lidocaine patches and Tylenol to continue (5) CHI (closed head injury): On blood thinners chronically, CT head fortunately without bleeding, does have black eye on right side Doing well today, awake and fully alert, no difficulty with ambulation (6) Ribs, multiple fractures: Chronic fractures on right side per CT Chest, no flail chest, no pneumothorax Tylenol/lidocaine as above, with home tramadol for breakthrough pain as needed, given guidance on driving when using this medication (7) Diabetes: Insulin dependent, resume home regimen (8) Ischemic cardiomyopathy: History of, EF 25-30%, also with Hx PAD On Eliquis, statin, Entresto, metoprolol Eliquis resumed after Hgb stable and no evidence of intracranial bleeding Patient not on diuretics outpatient and received large volume fluid resuscitation for sepsis, is back on room air and does not appear fluid overloaded (9) DVT (deep venous thrombosis): Diagnosed 03/28/2023, has been on Eliquis, continue this (will have to determine if he should be on any concurrent antiplatelet agents for CAD Hx) Plan Discharged home, BCx negative to date, given return precautions and advised to complete Abx Discharge Exam Constitutional WD/WN, vitals as above Respiratory normal respiratory effort, lungs clear to auscultation Cardiovascular RRR, no murmur, no edema Skin right periorbital ecchymosis Updated Medication List Medication Instructions Recorded Confirmed Type albuterol sulfate 90 mcg/actuation 2 puff inhalation Q4H PRN 02/02/19 05/14/23 History aerosol inhaler (ProAir HFA) sob/wheezing atorvastatin 10 mg tablet 10 mg PO QPM 02/02/19 05/14/23 History azelastine 137 mcg (0.1 %) nasal 2 spray intranasal BID 02/02/19 05/14/23 History spray aerosol ergocalciferol (vitamin D2) 1,250 50,000 unit PO WK 02/02/19 05/14/23 History mcg (50,000 unit) capsule (Vitamin D2) fluticasone propionate 50 2 spray intranasal BID 02/02/19 05/14/23 History mcg/actuation nasal spray,suspension metoprolol succinate 50 mg 50 mg PO QAM 02/02/19 05/14/23 History tablet,extended release 24 hr omeprazole 20 mg tablet,delayed 20 mg PO QAM 02/02/19 05/14/23 History release levothyroxine 175 mcg tablet 175 mcg PO QAM 12/18/19 05/14/23 History montelukast 10 mg tablet 10 mg PO QAM 12/18/19 05/14/23 History sacubitril 49 mg-valsartan 51 mg 1 tab PO BID 12/18/19 05/14/23 History tablet (Entresto) budesonide-formoterol HFA 160 2 puff inhalation QAM 12/20/19 05/14/23 History mcg-4.5 mcg/actuation aerosol inhaler (Symbicort) tamsulosin 0.4 mg capsule 0.4 mg PO QPM 04/29/21 05/14/23 History trazodone 100 mg tablet 100 mg PO HS PRN Sleep 04/29/21 05/14/23 History 3-in-1 Commode #1 ea 05/12/21 06/10/22 Rx Wheeled Walker #1 ea 05/12/21 06/10/22 Rx tramadol 50 mg tablet 50 - 100 mg PO Q6H PRN pain #40 06/10/21 05/14/23 Rx tabs empagliflozin 10 mg tablet 10 mg PO QAM 04/22/22 05/14/23 History (Jardiance) insulin degludec 100 unit/mL (3 20 unit subcut QPM 04/22/22 05/14/23 History mL) subcutaneous pen (Tresiba FlexTouch U-100 insulin) levocetirizine 5 mg tablet (Xyzal) 5 mg PO QPM PRN Allergy Symptoms 04/22/22 05/14/23 History apixaban 5 mg tablet (Eliquis) 5 mg PO BID 05/14/23 05/14/23 History escitalopram oxalate 20 mg tablet 20 mg PO QAM 05/14/23 05/14/23 History cefdinir 300 mg capsule 300 mg PO BID 6 days #12 caps 05/15/23 Rx doxycycline hyclate 100 mg capsule 100 mg PO BID 6 days #12 caps 05/15/23 Rx lidocaine 5 % topical patch 1 patch transdermal QAM #0 ea 05/15/23 Rx Hospital Stay Data Consultations 05/14/23 09:36 ED Decision to Admit Stat Diagnostic Imagining Performed 05/14/23 05:40 CT cervical spine wo con Stat CT head/brain wo con Stat 05/14/23 08:08 CT chest without contrast [CT chest diagnostic wo con] Stat Pending Results Patient Have Any Pending Studies at Discharge: Yes (blood culture collected 05/14/23, will call you if positive) Discharge Instructions Given to Patient (Per Discharging Provider) You were admitted to the hospital for weakness and fall suspected to be due to a pneumonia. You were treated with fluids and antibiotics and your symptoms improved rapidly, and you were no longer feeling weak. Despite having the positive MRSA test, we do not think that the MRSA caused your pneumonia. We think that you had some reflux or food/saliva go down the wrong tube while you were sleeping, causing the pneumonia. Some people are what we call MRSA colonizers, where they always will have some MRSA in their nose or on their skin but it does not cause them to have infections. You and your both should wash your hands thoroughly, and maintain good oral and nasal hygiene, but otherwise do not need to do anything else for this right now. We feel that you are safe for discharge home with the following recommendations: 1) You can use Tylenol and lidocaine patches first for your aches and pains due to your fall. If you are going to use your tramadol, we recommend that you do not drive a vehicle and try to take it last if those medications fail. Lidocaine patches are available over the counter at the pharmacy. 2) We are sending you home on two antibiotics, one called cefdinir, and the other called doxycycline. These will cover the vast majority of typical bacteria that cause pneumonia. You should start both this evening with dinner. You antibiotics were sent to the [facility] on [facility]. It is important that you pay attention to how you feel when you leave the hospital, and if you have any evidence that your symptoms are getting worse, you are feeling lightheaded or weak again, or get a worse cough or breathing trouble, we recommend coming back to the hospital right away as that may mean you need IV antibiotics for a longer length of time. 3) Please hold off on taking your Entresto for now, until you follow up over the phone with your Search And Rescue Officer's office. This is because your blood pressure was low when you were admitted to the hospital. 4) Please use a walker for the next couple of days, or at minimum a cane, so that you have some support with walking since you had a big fall. Take it easy at home, and make sure you have chairs or your bed at regular intervals so you have something to sit or lie down on in case you don't feel good. 5) We recommend that you continue taking your omeprazole, to help prevent reflux symptoms that could cause food going down the wrong pipe into the lungs. Please take it easy at home, and avoid driving for a few days as you recover, and if you have any concerns or worsening symptoms please seek urgent medical attention. Please follow up with your family doctor in the next 10 days or so, and at minimum call their office and let them know you were hospitalized and discharged. Total Time Total Time Spent Total Time Spent (In Minutes): 40 min Coding Level of Care Code 94610 INP/OBS DISCH >30 MIN Diagnoses Aspiration pneumonia J69.0 Severe sepsis A41.9; R65.20 Elevated troponin R77.8 Fall W19.XXXA CHI (closed head injury) S09.90XA Ribs, multiple fractures S22.49XA Diabetes E11.9 Ischemic cardiomyopathy I25.5 DVT (deep venous thrombosis) I82.409
== END 2023-05-15 14:00 | disposition home or self-care (01) | DRG 871 ==
LOC: ED 05:20 → 2S 10:15